=== PATIENT | female | born 1940 | race Caucasian/White ===

== ENCOUNTER 2023-11-03 08:31 | Day surgery (SDC) | payer OTHER, SELFPAY ==
[2023-11-03] VITALS (14 sets, daily range): BP systolic 111–153; BP diastolic 50–92; BMI 20.1
--- NOTE | 2023-11-03 09:22 | W.ICD.CONTRA ---
Addendum entered and electronically signed by JAZMÍN Araujo 11/03/23 12:51:
ADD: Pt is getting Bi-V PPM upgrade, not a Bi-V ICD.
Original Note:
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
-
History of KS?: No
LV Function
Left ventricular function study result?: Ejection Fraction >35% - <40%
ACEI/ARB/ARNI
Patient already on ACEI/ARB/ARNI: No
ACEI/ARB/ARNI Contraindication: Angiodema
Beta-Jessica
Patient already on Beta Jessica: Yes
[2023-11-03] MEDS: NSS 500 IV (10:07)
[2023-11-03] MEDS: MOTRIN 400 MG PO (13:36)
[2023-11-03] MEDS: TYLENOL 650 MG PO ×2 (14:16→16:09)
--- NOTE | 2023-11-03 16:12 | W.PN.UPDATE ---
Update Note
Progress Note Update
Pt seen post Bi-V PPM upgrade and pocket revision. Left ACW with aquacel dressing CDI, no ht/bleeding. Considerable pain to left shoulder, axilla and down left arm with modest relief from extra strength tylenol. Post CXR w/stable lead position, no
pneumothorax. Post EKG Bi-V paced with underlying sinus rhythm, 80s. Resume aspirin/plavix in AM. Activity limitations reviewed w/pt and daughters. Followup incision check next week at [facility] and will followup with Dr. Almazan thereafter. Home later
today if device site/tele remain stable.
--- NOTE | 2023-11-03 16:16 | ITS.CL.PACE ---
Counting Machine Operator - Pacemaker Implant
Pacemaker Implant
Procedure Report:
Date of Procedure: November 03, 2023
Patient : 1940
Procedures: Upgrade to QUILT MAKER pacemaker, addition of a 3830 conduction system pacing lead, and removal of chronic dual-chamber generator
Indication: 1) Class III CHF, LVEF 35%, 2) left bundle Branch Block, QRS 168 ms
Implants:
Pulse Generator: Medtronic; Model# W1 TR 01; Serial# [id number]
Atrial Lead: Medtronic: Model# 5076; Serial# [id number] implanted 2019
Right Ventricular Lead: Medtronic; Model# 5076; Serial# [id number] implanted 2019
Left Ventricular Lead: Medtronic; Model# 3830 implanted today
Explant:
Medtronic W1 DR serial number [id number] implanted 2019
Technique: The patient was prepped and draped in the usual fashion. The subclavian vein was patent. Local anesthetic was applied to the left prepectoral subcutaneous tissue. A 4 inch incision was made. The left axillary vein was accessed without
difficulty. A subcutaneous pocket was CREATED. Hemostasis was excellent. The coronary sinus could not be accessed so we removed the coronary sinus sheath and through a 3830 sheath found the conduction system in the middle right ventricle with
spontaneous PVCs with a W pattern on lead V1. The lead was advanced with manual torque and rotation in the clockwise direction with adequate pacing parameters and a narrow QRS of 96 ms. Threshold was acceptable and stable and as such was connected
to the new biventricular pacemaker generator. The chronic generator was removed from the field. The chronic leads were secured to the pectoralis muscle and fascia. The leads were appropriately attached to the device. The pocket was irrigated with
antibiotic solution. The device and leads were placed in the pocket and the device was secured to pectoralis muscle and facia. The incision was closed with absorbable sutures. The estimated blood loss was minimal. There were no complications. Device
based testing was performed as described below. IV contrast total: 5 cc.
System Analysis:
RA lead: P: 2.1 mV; Threshold: 0.7 V @ 0.5 ms; Impedance: 340 ohms.
RV lead: R: 20 mV; Threshold: 0.6 V @ 0.5 ms; Impedance: 475 ohms.
LV lead: R: 16 mV; Threshold: 1.2 V @ 0.5 ms; Impedance: 680 ohms..
Final Programming: DDDR 60-130 beats a minute
Conclusion: Uncomplicated upgrade to QUILT MAKER pacemaker
Recommendation: Routine device care
cc: Dr. Cesario Almazan
== END 2023-11-03 16:43 | disposition home or self-care (01) ==
LOC: CATH 08:31
PROVIDERS: ATTENDING PHYSICIAN Internal Medicine Cardiovascular Disease; FAMILY PHYSICIAN Internal Medicine; OTHER PHYSICIAN Internal Medicine Cardiovascular Disease
DX: Z45.010 Encounter for checking and testing of cardiac pacemaker pulse generator [battery] (principal); I49.5 Sick sinus syndrome; I44.7 Left bundle-branch block, unspecified; I13.0 Hypertensive heart and chronic kidney disease with heart failure and stage 1 through stage 4 chronic kidney disease, or unspecified chronic kidney disease; I50.22 Chronic systolic (congestive) heart failure; N18.31 Chronic kidney disease, stage 3a; Z79.82 Long term (current) use of aspirin; Z79.02 Long term (current) use of antithrombotics/antiplatelets
CPT/HCPCS: 33207; 33233; 33225; 33229; 71045; 93005; C1730; C1769; C1887; C1892; C1898; C2621; Q9967

== ENCOUNTER 2023-11-04 06:26 | Observation (INO) | payer OTHER, SELFPAY ==
[2023-11-04] VITALS (11 sets, daily range): BP systolic 104–174; BP diastolic 73–110; BMI 21.3
--- NOTE | 2023-11-04 03:47 | ED.GENMED ---
History of Present Illness
General
Chief Complaint: Post Operative Problem(s)
Source: patient and family
Time Seen by Provider: 11/04/23 03:31
Travel History
Have you had any contact with someone who has COVID-19?: No
Do you have any symptoms of coronavirus? Fever > 100 degrees, chills, cough, shortness of breath, sore throat, loss of taste or smell, muscle aches, or headache?: No
History of Present Illness
History of Present Illness:
83-year-old female presents to the emergency room complaining of pain in her left shoulder which radiates to her neck, down the back and down her left arm which has been present since she had pacemaker revision procedure yesterday. Patient has been
taking ibuprofen, Tylenol and using warm compresses but no improvement in the pain. Patient was offered hospitalization for pain control but declined.
Past History
Past History
ED Past Medical History: Arrthythmia, CAD (Nonobstructive), CHF and HTN
ED Past Surgical History: Cardiac (Pacemaker)
Social History
Tobacco: Non-smoker
Alcohol: Occasional
Drug: None
Personal:
Living: with family
Employment: Retired
Phy Exam
Physical Exam
Physical Exam:
General: Awake, Alert, Oriented X3. No acute distress.
Vitals: unremarkable
Head: Atraumatic
Eyes: Pupils equal, EOMI
Throat: Airway intact, no exudates
Neck: Trachea midline
Chest: Left upper chest dressing covering pacemaker surgical site.
Lungs: Clear and equal b/l
Heart: Regular rate, no murmurs
Abd: Soft, Nontender, No pulsatile mass
Neuro: Nonfocal
Skin: Warm, dry, no rash
Extremities: pulses equal b/l, no edema
Course
Orders/Labs/Results
Orders:
Orders
11/04/23 03:45
Oxycodone [Roxicodone] 5 mg PO NOW STA
11/04/23 03:46
CR Chest - 2 Views Urgent
Comment:
Reason For Exam: pain radiating to neck, back, arm s/p pacemaker sx
11/04/23 05:16
HYDROmorphone [Dilaudid] 0.5 mg IV NOW STA
11/04/23 05:43
Admit/Transfer Patient As Directed
Co-Sign Provider:
Level of Care: Observation services
Assign to:: Telemetry
Physician / Group: [email or web address]
Diagnosis: Post procedure pain at left shoulder failed OP control
Reason for Telemetry: Arrhythmia
Date to Stop Telemetry: 11/07/23
Time to Stop Telemetry: 11:00
11/04/23 05:46
Code Status As Directed
Resuscitation Status: Full Code
11/07/23 11:00
DC Protocol for Telemetry ONCE
Vital Signs
Initial and Last Documented VS:
Initial Vital Signs
Temp Pulse Resp BP Pulse Ox
98.2 F 66 20 141/76 98
11/04/23 01:18 11/04/23 01:18 11/04/23 01:18 11/04/23 01:18 11/04/23 01:18
Last Documented Vital Signs
Temp Pulse Resp BP Pulse Ox
98.4 F 80 16 158/81 95
11/04/23 06:24 11/04/23 06:24 11/04/23 06:24 11/04/23 06:24 11/04/23 06:24
MDM/Problems Addressed
Differential Diagnosis Includes:
Postoperative pain, pneumothorax, hemothorax, pericardial effusion
MDM/Problems Addressed:
Suspicion for serious complication is low as the patient has a normal heart rate, normal blood pressure. She was evaluated for this pain by cardiology after the procedure. At that time there was no suspicion for serious complication. Patient was
offered hospitalization. Pain managed
Chronic conditions affecting care: HTN and Arrhythmia
*Radiology
Radiology exam reviewed: preliminary read by ED provider (Chest x-ray reviewed by myself. No acute abnormality noted.)
*Pulse Oximetry
Patient hypoxic: no
*Journeyman Painter Interpretation
Rate: normal
Rhythm: ventricular paced
*Critical Care Note
Total Time (30-74mins, 75-104mins- exclusive of procedures): Not Applicable
ED Attending Note
-
Portions of this chart may have been created with voice recognition software.� Occasional wrong word or��sound alike� substitutions may have occurred due to the inherent limitations of voice recognition software.
Discharge Plan
Departure
Patient Disposition: Admit
Date of Disposition: 11/04/23
Time of Disposition: 05:34
Admit to: Med/Surg
Presentation/result/management discussed w/ accepting MD/DO: Hospitalist
Condition: Fair
Discharge Problem:
Post-operative pain
Interventions
Interventions:
*Risk Screen - Suicide Last Done: 11/04/23 01:18
*General Assessment Last Done: 11/04/23 01:18
*Neglect/Abuse Screening Last Done: 11/04/23 01:18
ED- Fall Risk Assessment Last Done: 11/04/23 01:18
*ED COVID-19 Vaccine History Last Done: 11/04/23 01:18
ED-Skin Assessment Last Done: 11/04/23 03:36
[2023-11-04] MEDS: ROXICODONE 5 MG PO ×2 (03:57→18:45)
[2023-11-04] MEDS: DILAUDID 0.5 MG IV ×2 (05:29→08:20)
--- NOTE | 2023-11-04 05:38 | HPS.HSE ---
Family Physician
-
Family Physician: Lisa Beth
Chief Complaint
-
post procedutre pain
History of Present Illness
83F HX melba HFrEF, Prx AF , CKD pw pain in her left shoulder which radiates to her neck, down the back and down her left arm which has been present since she had pacemaker revision procedure yesterday. Patient has been taking ibuprofen, Tylenol and
using warm compresses but no improvement in the pain.
Medical History
Past Medical History
Past Medical History: Reports Other
Additional Past Medical History:
Arrhythmia, CAD (Nonobstructive), CHF and HTN
Past Surgical History: Reports Other (PPM placement )
Social History
Tobacco: Non-smoker
Alcohol: Occasional
Drug: None
Living: With Family
Family History
Family History: Not pertinent
Allergies / Home Medications
Allergies
Allergy/AdvReac Type Severity Reaction Status Date / Time
codeine Allergy dizzy Verified 11/04/23 01:17
losartan Allergy Anaphylaxis Verified 11/04/23 01:17
sacubitril [From Entresto] Allergy Anaphylaxis Verified 11/04/23 01:17
valsartan [From Entresto] Allergy Anaphylaxis Verified 11/04/23 01:17
Home Medications
aspirin 81 mg tablet,delayed release 81 mg PO DAILY Blood clot prevention/tx 07/30/22
albuterol sulfate 90 mcg/actuation aerosol inhaler 2 puff inhalation R Q6HPRN PRN SOB 07/31/22
amiodarone 200 mg tablet (Pacerone) 200 mg PO DAILY Heart Disease/Condition 05/28/23
carvedilol 12.5 mg tablet 12.5 mg PO BID Heart Disease/Condition 05/28/23
citalopram 20 mg tablet 20 mg PO DAILY Depression 05/28/23
ferrous sulfate 325 mg (65 mg iron) tablet 325 mg PO DAILY Supplement 08/19/23
hydralazine 10 mg tablet 10 mg PO BID Blood Pressure 08/19/23
levothyroxine 100 mcg tablet 100 mcg PO DAILY Thyroid 08/19/23
omeprazole 20 mg capsule,delayed release 20 mg PO DAILY GERD 08/19/23
furosemide 40 mg tablet 40 mg PO BID HF 30 days #30 tabs 08/29/23
empagliflozin 10 mg tablet (Jardiance) 10 mg PO DAILY 10/06/23
cetirizine 10 mg tablet (Zyrtec) 10 mg PO QPM 11/03/23
clopidogrel 75 mg tablet (Plavix) 75 mg PO DAILY 11/03/23
losartan 25 mg tablet 25 mg PO DAILY 11/03/23
melatonin 3 mg tablet 6 mg PO HS 11/03/23
rosuvastatin 20 mg tablet 20 mg PO QPM 11/03/23
Allergy/Medication List:
Medications on admission are unable to be verified or confirmed at this time.
Review of Systems
-
Constitutional: Reports No Symptoms
EENT: Reports No Symptoms
Respiratory: Reports No Symptoms
Cardiac: Reports No Symptoms
Abdomen/GI: Reports No Symptoms
: Reports No Symptoms
Musculoskeletal: Reports See HPI
Skin: Reports No Symptoms
Neurological: Reports No Symptoms
Endocrine: Reports No Symptoms
Hematologic/Lymphatic: Reports No Symptoms
Psych: Reports No Symptoms
Physical Exam
Vital Signs
Vital Signs
Temp Pulse Resp BP Pulse Ox
98.2 F 80 18 153/87 94
11/04/23 01:18 11/04/23 05:02 11/04/23 05:02 11/04/23 05:02 11/04/23 05:02
Physical Exam
General: Other (see below )
Data Reviewed
-
Old Records: Reviewed
Impression/Plan
-
Reviewed VS: unremarkable
PE
Gen: NAD
HEENT: anicteric
Neck: supple
Lungs: dressing covering pacemaker surgical site.
Cor: RRR S1 S2
Abdomen: Soft, Nontender,
TOWER TECHNICIAN: AAO3 NFND
MS: no edema
Psych: appropriate
Data
Pending admission labs
11/04 CXR final report pending
11/03/23 CXR
- Interval insertion of left chest wall cardiac pacemaker.
- No pneumothorax.
- Couple bands of scarring seen within the lungs as well as mildly increased interstitial markings bilaterally, which appear be a chronic finding.
Last hospitalist admission 08/26/23 - 08/29/23
Principal Discharge diagnosis :
Acute on chronic systolic congestive heart failure
Acute renal injury on chronic kidney disease stage III
ASSESSMENT & PLAN
Data
Pending admission labs
Post procedure pain at left shoulder which radiates to her neck, down the back and down her left arm
Inadequate pain control to Tylenol/Motrin/oxycodone.
s/p pacemaker revision procedure 11/03/23
HX CKD
- IV narcotic PRN with hold for AMS
- DCA card consult
HX chronic HFrEF
- maintain on PO Lasix
HX Paroxysmal AF
s/p pacemaker revision procedure 11/03/23
- cont amiodarone.
- cont. Aspirin only, not on anticoagulation due to history of bleed/fall
CKD3a
- f/u BMP
Chr condition
Alcohol use disorder
history of cardiogenic CVA
COPD without exacerbation
Hypothyroidism
Hyperlipidemia
Essential hypertension
History of aortic stenosis s/p TAVR
Chronic normocytic anemia
Chronic thrombocytopenia
DVT prophylaxis - SQH
Full code
Obs TLM
--- NOTE | 2023-11-04 08:45 | CM ---
MEt with patient who is admitted under observation status. Patient signed OBs letter and copy to her. SHe reports she had pacemaker put in as outpatient yesterday. [facility] Her daughter has called [facility] to notify of
admit to . She has been independent and lives alone. She resides in 2 level home with one step in. THere is powder room on medical data entry clerk. UP full flight to her bedroom and full bathroom. She has 3 daughters, [address] Lisa Beth
Pharmacy: [facility] pharmacy in [place]
PLAN: Home with [facility].
--- NOTE | 2023-11-04 09:08 | W.PN.HOSP.TC ---
Today's Communication/Plan
-
Plan for discharge tomorrow if pain is controlled on meds
Assessment / Plan
Assessment / Plan
Post procedure pain at left shoulder which radiates to her neck, down the back and down her left arm
S/p pacemaker revision procedure 11/03/23
-Give Tylenol 1 g 4 times daily, oxycodone 5 mg for moderate pain, oxycodone 10 mg for severe pain
-Use IV Dilaudid only if oxycodone is not helping
-Plan for discharge tomorrow if pain is controlled
Stage IIIa chronic kidney disease
� Monitor creatinine
Chronic systolic CHF
� Continue home Lasix
Paroxysmal atrial fibrillation
-�s/p pacemaker revision procedure 11/03/23
- cont amiodarone, aspirin, not on anticoagulation due to history of bleed/fall
�
Alcohol use disorder
History of cardiogenic CVA
COPD without exacerbation
Hypothyroidism
Hyperlipidemia
Essential hypertension
History of aortic stenosis s/p TAVR
Chronic normocytic anemia
Chronic thrombocytopenia
DVT prophylaxis�subcu heparin
Full code
Physical Exam
General: No acute distress
HEENT: Normocephalic, Atraumatic, EOMI, MMM
Respiratory: Clear to Auscultation bilaterally
Cardiac: Normal S1/S2, Regular Rate and Rhythm
Chest wall: Arm in sling
GI: Soft, Nontender, Nondistended, Normal Bowel Sounds
Extremities: No Clubbing, Cyanosis, or Edema
Anticipated Discharge: Within 24 hours
Subjective/Interval History
-
Date of Service: November 04, 2023
Patient reports her pain is much improved.
Objective Data
-
Vital Signs:
Vital Signs
Temp Pulse Resp BP Pulse Ox
98.4 F 68 16 158/81 95
11/04/23 06:24 11/04/23 06:45 11/04/23 06:45 11/04/23 06:24 11/04/23 06:45
--- NOTE | 2023-11-04 09:13 | CON.CAR ---
Consultation
Consultation Request
Date/Time Consultation Requested: November 04, 2023
Date/Time Consultation Performed: November 04, 2023
Requesting Provider: Hospitalist
Performing Provider: Latrice
Reason for Consultation: Pain management
Medical History
-
Chief Complaint: Pain management
History of Present Illness:
83-year-old with extensive medical history as listed below who is status post upgrade to CLINICAL REHABILITATION SPECIALIST pacemaker yesterday with a left bundle branch area lead and was doing well post procedure yesterday with a chest x-ray demonstrating no pneumothorax and a
stable lead positions who had adequate pain control at time of discharge although overnight was having a difficulty getting settled and was noting left neck left shoulder and left arm pain. Of note her prior generator from the pacemaker placed by
Dr. Machado at [facility] had migrated into her shoulder causing significant discomfort prior to procedure and we moved the generator more medially and inferiorly and is a stable location. There is no hematoma evident. Repeat chest x-ray
demonstrates stable lead positions. There is no drainage from the wound. After receiving analgesia in her ER she was comfortable eating and telling me jokes. I also spoke with her daughter regarding pain management.
Past Medical History
Past Medical History: Arrhythmias, CHF and CVA
Past Surgical History: None
Social History
Tobacco: Non-Smoker
Alcohol: None
Drug: None
Personal: Single
Living: Alone
Employment: Not Employed
Family History
Family History: Reviewed & Not Pertinent
Allergies / Home Medications
Allergy/AdvReac Type Severity Reaction Status Date / Time
codeine Allergy dizzy Verified 11/04/23 01:17
losartan Allergy Anaphylaxis Verified 11/04/23 01:17
sacubitril [From Entresto] Allergy Anaphylaxis Verified 11/04/23 01:17
valsartan [From Entresto] Allergy Anaphylaxis Verified 11/04/23 01:17
Medication Instructions Recorded Confirmed Type
aspirin 81 mg tablet,delayed 81 mg PO DAILY Blood clot 07/30/22 11/04/23 History
release prevention/tx
albuterol sulfate 90 mcg/actuation 2 puff inhalation R Q6HPRN PRN SOB 07/31/22 11/04/23 History
aerosol inhaler
amiodarone 200 mg tablet (Pacerone) 200 mg PO DAILY Heart 05/28/23 11/04/23 History
Disease/Condition
carvedilol 12.5 mg tablet 12.5 mg PO BID Heart 05/28/23 11/04/23 History
Disease/Condition
citalopram 20 mg tablet 20 mg PO DAILY Depression 05/28/23 11/04/23 History
ferrous sulfate 325 mg (65 mg 325 mg PO DAILY Supplement 08/19/23 11/04/23 History
iron) tablet
hydralazine 10 mg tablet 10 mg PO BID Blood Pressure 08/19/23 11/04/23 History
levothyroxine 100 mcg tablet 100 mcg PO DAILY Thyroid 08/19/23 11/04/23 History
omeprazole 20 mg capsule,delayed 20 mg PO DAILY GERD 08/19/23 11/04/23 History
release
furosemide 40 mg tablet 40 mg PO BID HF 30 days #30 tabs 08/29/23 11/04/23 Rx
empagliflozin 10 mg tablet 10 mg PO DAILY 10/06/23 11/04/23 History
(Jardiance)
cetirizine 10 mg tablet (Zyrtec) 10 mg PO QPM 11/03/23 11/04/23 History
clopidogrel 75 mg tablet (Plavix) 75 mg PO DAILY 11/03/23 11/04/23 History
losartan 25 mg tablet 25 mg PO DAILY 11/03/23 11/04/23 History
melatonin 3 mg tablet 6 mg PO HS 11/03/23 11/04/23 History
rosuvastatin 20 mg tablet 20 mg PO QPM 11/03/23 11/04/23 History
Review of Systems
-
All other systems: Negative unless noted
Musculoskeletal: Joint Pain, Muscle Pain and Muscle Stiffness
Physical Exam
Vital Signs
Temp Pulse Resp BP Pulse Ox
98.4 F 68 16 158/81 95
11/04/23 06:24 11/04/23 06:45 11/04/23 06:45 11/04/23 06:24 11/04/23 06:45
Physical Exam
General: Well Developed and Well Nourished
HEENT: Normocephalic
Respiratory: Clear
Cardiac: S1/S2 and Regular Rhythm
Breast: Deferred by me
GI: Soft, Non Tender and Non Distended
Rectal: Deferred by Provider
Genito-urinary: Other
Musculoskeletal: No Clubbing and No Cyanosis
Skin: Warm and Dry
Neuro: Awake, Alert and Oriented
Hematologic/Lymphatic: No Lymphadenopathy
Psych: Calm
Impression / Plan
-
Outpatient computer numerical control machinist: Dr. Cesario Almazan at [facility]
Impression:
Status post upgrade to CLINICAL REHABILITATION SPECIALIST pacemaker on November 03 with me utilizing a left bundle branch area lead
Nonischemic cardiomyopathy, HFrEF 35%-40% by echo 08/21/2023.
Left bundle branch block.
Sick sinus syndrome status post dual-chamber pacemaker-placed by Dr. Machado at [facility]
Aortic stenosis status post TAVR.
Paroxysmal atrial fibrillation.
Nonobstructive coronary artery disease by catheterization 08/2022.
CVA, multiple, with recent showing new embolic events, residual
� � deficits- left hemiparesis-mild, balance and gait disturbance.
Carotid artery stenosis status post left stent.
Cerebral aneurysm.
AAA.
Iron deficiency anemia requiring transfusion.
Colonic polyps.
Hiatal hernia with gastroesophageal reflux disease.
Pulmonary nodule.
Degenerative disk disease with spinal stenosis, radiculopathy.
Obstructive sleep apnea suspected.
Hypothyroidism.
Osteopenia.
COPD.
Asthma.
Peripheral arterial disease.
Hypertension.
Hyperlipidemia.
Depression, anxiety.
Insomnia
Recommendations:
Appreciate excellent IM care. She was admitted for pain control after device upgrade procedure yesterday. We did need to move her generator position from the shoulder capsule which is not a traditional position to a more standard position in the
deltopectoral groove. As such she has likely more pain in the shoulder neck and arm region from generator repositioning.
-She would be okay with Tylenol 650 mg every 6 hours and if she has breakthrough I have no objection to Percocet or what other narcotic is decided upon with internal medicine.
-She has an extensive past medical history and I suspect given the inability to control pain at home overnight Monday that we should keep her for approximately 48 hours for pain management
-Review of her chest x-ray, telemetry and device site reveals normal and stable device function and lead positions. She has appropriate narrow QRS on telemetry from her left bundle branch area pacing
-Will continue all of her cardiac medications
-Her outpatient computer numerical control machinist wants her evaluated for a watchman implantation at some point over the next 3 to 6 months
Data Reviewed
-
EKG: Tracing Personally Visualized and interpreted
Radiology: Image Personally Visualized and interpreted
Medical Tests (Nuc Med, Echo etc): Report Reviewed by me
Labs: Labs Reviewed by me
Old Records: Reviewed
--- NOTE | 2023-11-04 10:00 | PTCARENOTE ---
Pt arrived to rm 405-1 at this time from the ED. Pt AAox3, stating that left shoulder pain is acceptable to her, educated pt on pain meds. A-paced on telemetry. Also, educated pt on left upper extremity restriction with arm sling post pacemaker. See
shift assessment for further detail. Oriented pt to , call trevizo, plan of care, pressure ulcer prevention, call trevizo- pt verbalized understanding, will monitor.
[2023-11-04] MEDS: COREG 12.5 MG PO ×2 (11:11→22:06)
[2023-11-04] MEDS: COLACE 100 MG PO ×2 (11:11→22:07)
[2023-11-04] MEDS: ASPIR LOW (ENTERIC COATED) 81 MG PO (11:11)
[2023-11-04] MEDS: HEPARIN 5000 UNITS SC ×2 (11:13→22:08)
[2023-11-04] MEDS: FEOSOL 325 MG PO (11:13)
[2023-11-04] MEDS: JARDIANCE 10 MG PO (11:13)
[2023-11-04] MEDS: LASIX 40 MG PO ×2 (11:13→22:07)
[2023-11-04] MEDS: PLAVIX 75 MG PO (11:14)
[2023-11-04] MEDS: APRESOLINE 10 MG PO ×2 (11:14→22:08)
[2023-11-04] MEDS: PROTONIX 40 MG PO (11:14)
[2023-11-04] MEDS: SYNTHROID 100 MCG PO (11:14)
[2023-11-04 11:37] LABS: Glucose - Point of Care 121 mg/dl (70-99)
[2023-11-04] MEDS: CELEXA 20 MG PO (12:55)
[2023-11-04] MEDS: COZAAR 25 MG PO (12:55)
[2023-11-04] MEDS: PACERONE 200 MG PO (12:57)
[2023-11-04] MEDS: TYLENOL 1000 MG PO ×3 (12:58→22:07)
[2023-11-04 16:44] LABS: Glucose - Point of Care 109 mg/dl (70-99)
--- NOTE | 2023-11-04 17:30 | PTCARENOTE ---
Removed sling that was on left upper extremity 24 hrs post pacemaker 11/03/23. Dr. Pollard indicated earlier today to remove sling this evening. Educated pt to not push up with left hand/arm.
[2023-11-04] MEDS: MIRALAX 17 GRAMS PO (18:09)
[2023-11-04] MEDS: ZYRTEC 10 MG PO (18:09)
[2023-11-04] MEDS: CRESTOR 10 MG PO (18:44)
[2023-11-04 21:35] LABS: Glucose - Point of Care 153 mg/dl (70-99)
[2023-11-04] MEDS: MELATONIN PO (22:00)
[2023-11-05] VITALS (9 sets, daily range): BP systolic 79–157; BP diastolic 51–83; PULSE 78; O2SAT 96; BMI 21.2
[2023-11-05 01:08] LABS: Urine Albumin Negative (Neg - Trace); Urine Bilirubin Negative (Negative); Urine Character Clear (Clear); Urine Color Yellow; Urine Glucose 2+ (Negative); Urine Ketone Negative (Negative); Urine Leukocyte Trace (Negative); Urine Nitrite Negative (Negative); Urine Occult Blood Negative (Negative); Urine Specific Gravity 1.015 (<1.030); Urine Urobilinogen Negative (Neg - 1+)
[2023-11-05 01:34] LABS: Urine Squamous Cell >30 /LPF (Few)
[2023-11-05 01:36] LABS: Urine Bacteria Many (Negative); Urine White Cell 30-40 /HPF (0-5)
[2023-11-05] MEDS: SYNTHROID 100 MCG PO (05:13)
[2023-11-05] MEDS: ROXICODONE 5 MG PO ×2 (05:16→16:29)
[2023-11-05 07:29] LABS: Hematocrit 34.3 % (37.0-47.0); Hemoglobin 11.4 g/dL (12.0-16.0); Mean Corp Hgb Conc. 33.2 g/dL (33.0-37.0); Mean Corpuscular Hgb 30.5 pg (27.0-31.0); Mean Corpuscular Volume 91.7 fL (81.0-99.0); Mean Platelet Volume 9.5 fL (7.4-10.4); Platelet Count 136 10^3/uL (130-400); Red Blood Cell Count 3.74 10^6/uL (4.20-5.40); Red Cell Dist. Width 12.9 % (11.5-14.5); White Blood Cell Count 4.5 10^3/uL (4.8-10.8)
[2023-11-05 08:07] LABS: Glucose - Point of Care 91 mg/dl (70-99)
[2023-11-05 08:11] LABS: Blood Urea Nitrogen 47 mg/dl (7-17); Calcium 9.1 mg/dl (8.4-10.2); Carbon Dioxide 28 mmol/L (22-30); Chloride 101 mmol/L (98-107); Estimated Creatinine Clearance 24 ml/min; Glucose 92 mg/dl (70-99); Potassium 3.7 mmol/L (3.5-5.1); Sodium 136 mmol/L (135-145); eGFR 41.06
[2023-11-05 08:33] LABS: Glycohemoglobin (HgbA1c) 5.4 % (4.0-5.6)
--- NOTE | 2023-11-05 08:37 | W.PN.HOSP.TC ---
Addendum entered and electronically signed by Andre Brooks MD 11/05/23 16:21:
Patient complains of dysuria, UA is dirty/not a clean catch, start empiric Rocephin until cultures return.
Original Note:
Today's Communication/Plan
-
see bold
Assessment / Plan
Assessment / Plan
Post procedure pain at left shoulder which radiates to her neck, down the back and down her left arm
S/p pacemaker revision procedure 11/03/23
-Give Tylenol 1 g 4 times daily, oxycodone 5 mg for moderate pain, oxycodone 10 mg for severe pain
-Use IV Dilaudid only if oxycodone is not helping
-Plan for discharge tomorrow if pain is controlled
-PT rec HH
Stage IIIa chronic kidney disease
� Monitor creatinine
Chronic systolic CHF
� Continue home Lasix
Paroxysmal atrial fibrillation
-�s/p pacemaker revision procedure 11/03/23
- cont amiodarone, aspirin, not on anticoagulation due to history of bleed/fall
�
Alcohol use disorder
History of cardiogenic CVA
COPD without exacerbation
Hypothyroidism
Hyperlipidemia
Essential hypertension
History of aortic stenosis s/p TAVR
Chronic normocytic anemia
Chronic thrombocytopenia
DVT prophylaxis�subcu heparin
Full code
Physical Exam
General: No acute distress
HEENT: Normocephalic, Atraumatic, EOMI, MMM
Respiratory: Clear to Auscultation bilaterally
Cardiac: Normal S1/S2, Regular Rate and Rhythm
Chest wall: Pacemaker incision with dressing in pace
GI: Soft, Nontender, Nondistended, Normal Bowel Sounds
Extremities: No Clubbing, Cyanosis, or Edema
Anticipated Discharge: Within 24 hours
Subjective/Interval History
-
Date of Service: November 05, 2023
Patient continues to complain of severe left shoulder pain.
Objective Data
-
Labs:
Laboratory Results
11/05/23
06:40
WBC 4.5 L
Hgb 11.4 L
Hct 34.3 L
Plt Count 136
Sodium 136
Potassium 3.7
Chloride 101
Carbon Dioxide 28
BUN 47 H
Creatinine 1.3 H
Glucose 92
Calcium 9.1
Vital Signs:
Vital Signs
Temp Pulse Resp BP Pulse Ox
97.6 F 71 18 147/83 99
11/05/23 08:27 11/05/23 08:27 11/05/23 08:27 11/05/23 03:28 11/05/23 08:27
I&O
11/04/23 11/05/23 11/06/23
06:59 06:59 06:59
Intake Total 1200 / 1200
Output Total 705 / 705
Balance 495 / 495
--- NOTE | 2023-11-05 08:40 | W.PN.CARDCBS ---
Today's Communication / Plan
-
Pain control
Out of bed ambulate
Home Monday
Impression / Plan
-
Outpatient feature writer: Dr. Cesario Almazan at [facility]
Impression:
Status post upgrade to DANCE ARTIST pacemaker on November 03 with me utilizing a left bundle branch area lead
Nonischemic cardiomyopathy, HFrEF 35%-40% by echo 08/21/2023.
Left bundle branch block.
Sick sinus syndrome status post dual-chamber pacemaker-placed by Dr. Machado at [facility]
Aortic stenosis status post TAVR.
Paroxysmal atrial fibrillation.
Nonobstructive coronary artery disease by catheterization 08/2022.
CVA, multiple, with recent showing new embolic events, residual
� � deficits- left hemiparesis-mild, balance and gait disturbance.
Carotid artery stenosis status post left stent.
Cerebral aneurysm.
AAA.
Iron deficiency anemia requiring transfusion.
Colonic polyps.
Hiatal hernia with gastroesophageal reflux disease.
Pulmonary nodule.
Degenerative disk disease with spinal stenosis, radiculopathy.
Obstructive sleep apnea suspected.
Hypothyroidism.
Osteopenia.
COPD.
Asthma.
Peripheral arterial disease.
Hypertension.
Hyperlipidemia.
Depression, anxiety.
Insomnia
Recommendations:
Appreciate excellent IM care. She was admitted for pain control after device upgrade procedure Monday. We did need to move her generator position from the shoulder capsule which is not a traditional position to a more standard position in the
deltopectoral groove. As such she has likely more pain in the shoulder neck and arm region from generator repositioning. She has no evidence of hematoma or significant drainage.
-She would be okay with Tylenol 650 mg every 6 hours and if she has breakthrough I have no objection to Percocet or what other narcotic is decided upon with internal medicine.
-She has an extensive past medical history and I suspect given the inability to control pain at home overnight [place] that we should keep her for approximately 48 hours for pain management
-Review of her chest x-ray, telemetry and device site reveals normal and stable device function and lead positions. She has appropriate narrow QRS on telemetry from her left bundle branch area pacing
-Will continue all of her cardiac medications
-Her outpatient feature writer wants her evaluated for a watchman implantation at some point over the next 3 to 6 months
-Out of bed and ambulate today and I suspect discharge Monday
Progress Note - Registered Nurse Obstetrics
Subjective
Date of Service: November 05, 2023
Feels better today
Objective
Labs:
11/05/23 06:40
11/05/23 06:40
Labs
Hgb 11.4 g/dL (12.0-16.0) L 11/05/23 06:40
Hct 34.3 % (37.0-47.0) L 11/05/23 06:40
Plt Count 136 10^3/uL (130-400) 11/05/23 06:40
Sodium 136 mmol/L (135-145) 11/05/23 06:40
Potassium 3.7 mmol/L (3.5-5.1) 11/05/23 06:40
BUN 47 mg/dl (7-17) H 11/05/23 06:40
Creatinine 1.3 mg/dL (0.6-1.0) H 11/05/23 06:40
Glucose 92 mg/dl (70-99) 11/05/23 06:40
Vital Signs and I&O:
Vital Signs
Temp Pulse Resp BP Pulse Ox
97.6 F 71 18 147/83 99
11/05/23 08:27 11/05/23 08:27 11/05/23 08:27 11/05/23 03:28 11/05/23 08:27
Vital Signs
Temp Pulse Resp BP Pulse Ox
97.6 F 71 18 147/83 99
11/05/23 08:27 11/05/23 08:27 11/05/23 08:27 11/05/23 03:28 11/05/23 08:27
Intake & Output
11/03/23 11/04/23 11/05/23 11/06/23
06:59 06:59 06:59 06:59
Intake Total 1200 / 1200
Output Total 705 / 705
Balance 495 / 495
Physical Exam
Physical Exam
HEENT normocephalic atraumatic
Site clean dry and intact without hematoma or drainage
No significant ecchymosis at the site
Appropriate ventricular pacing on telemetry
Cor regular no murmur
Lungs clear to station bilaterally
Abdomen soft nontender positive bowel sounds no extremity edema
Alert and interacts 3
[2023-11-05] MEDS: APRESOLINE 10 MG PO ×2 (09:46→21:01)
[2023-11-05] MEDS: HEPARIN 5000 UNITS SC ×2 (09:47→21:03)
[2023-11-05] MEDS: COZAAR 25 MG PO (09:47)
[2023-11-05] MEDS: COLACE 100 MG PO (09:47)
[2023-11-05] MEDS: CELEXA 20 MG PO (09:47)
[2023-11-05] MEDS: ASPIR LOW (ENTERIC COATED) 81 MG PO (09:47)
[2023-11-05] MEDS: FEOSOL 325 MG PO (09:47)
[2023-11-05] MEDS: COREG 12.5 MG PO ×2 (09:47→21:01)
[2023-11-05] MEDS: PACERONE 200 MG PO (09:48)
[2023-11-05] MEDS: PROTONIX 40 MG PO (09:48)
[2023-11-05] MEDS: TYLENOL 1000 MG PO ×4 (09:48→22:18)
[2023-11-05] MEDS: MIRALAX 17 GRAMS PO (09:48)
[2023-11-05] MEDS: PLAVIX 75 MG PO (09:48)
[2023-11-05] MEDS: JARDIANCE 10 MG PO (09:48)
[2023-11-05] MEDS: LASIX 40 MG PO (09:49)
[2023-11-05] MEDS: ROXICODONE 10 MG PO (10:46)
[2023-11-05 11:57] LABS: Glucose - Point of Care 77 mg/dl (70-99)
[2023-11-05] MEDS: STERILE WATER FOR INJECTION 10 ML IV (12:50)
[2023-11-05] MEDS: ROCEPHIN 1000 MG IV (12:50)
--- NOTE | 2023-11-05 13:00 | PTCARENOTE ---
Made Dr. Tori Brooks aware of pt's drop in BP (85/57) prior to pt working with PT. Pt asymptomatic. BP 112/71 after working with PT. Pt still complaining of pain of left shoulder although pt sleeping prior to asking pt about pain. Dr. Brooks adding
parameters to BP meds, will continue to monitor BP and pain management.
[2023-11-05] MEDS: LIDOCAINE 4% PATCH 1 PATCH TOPICAL (13:48)
[2023-11-05] MEDS: LASIX PO (17:08)
[2023-11-05 17:22] LABS: Glucose - Point of Care 135 mg/dl (70-99)
[2023-11-05] MEDS: CRESTOR 10 MG PO (18:23)
[2023-11-05] MEDS: ZYRTEC 10 MG PO (18:23)
[2023-11-05] MEDS: COLACE PO (21:02)
[2023-11-05] MEDS: MELATONIN 6 MG PO (21:02)
[2023-11-05 21:21] LABS: Glucose - Point of Care 117 mg/dl (70-99)
[2023-11-06] MEDS: ROXICODONE 5 MG PO ×2 (02:26→15:39)
[2023-11-06 02:45] VITALS: BP 143/80
[2023-11-06 04:03] VITALS: BMI 20.8
[2023-11-06] MEDS: SYNTHROID 100 MCG PO (04:32)
[2023-11-06 07:47] LABS: Glucose - Point of Care 86 mg/dl (70-99)
[2023-11-06] MEDS: DILAUDID 0.5 MG IV (08:49)
[2023-11-06] MEDS: HEPARIN 5000 UNITS SC ×2 (08:52→19:50)
[2023-11-06] MEDS: COREG 12.5 MG PO ×2 (08:52→19:53)
[2023-11-06] MEDS: COLACE 100 MG PO ×2 (08:52→19:53)
[2023-11-06] MEDS: PACERONE 200 MG PO (08:53)
[2023-11-06] MEDS: TYLENOL 1000 MG PO ×4 (08:53→21:34)
[2023-11-06] MEDS: CELEXA 20 MG PO (08:53)
[2023-11-06] MEDS: COZAAR 25 MG PO (08:53)
[2023-11-06] MEDS: APRESOLINE 10 MG PO ×2 (08:53→19:52)
[2023-11-06] MEDS: JARDIANCE 10 MG PO (08:53)
[2023-11-06] MEDS: ASPIR LOW (ENTERIC COATED) 81 MG PO (08:53)
[2023-11-06] MEDS: PLAVIX 75 MG PO (08:53)
[2023-11-06] MEDS: LASIX 40 MG PO ×2 (08:53→15:41)
[2023-11-06] MEDS: PROTONIX 40 MG PO (08:53)
[2023-11-06] MEDS: FEOSOL 325 MG PO (08:53)
--- NOTE | 2023-11-06 08:53 | W.PN.HOSP.TC ---
Today's Communication/Plan
-
I want to see how she does with physical therapy today
Control pain with oxycodone only
Will need VNA and physical therapy at home
Assessment / Plan
Assessment / Plan
Post procedure pain at left shoulder which radiates to her neck, down the back and down her left arm
S/p pacemaker revision procedure 11/03/23
-Give Tylenol 1 g 4 times daily, oxycodone 5 mg for moderate pain, oxycodone 10 mg for severe pain
-Use IV Dilaudid only if oxycodone is not helping
-Plan for discharge tomorrow if pain is controlled
-PT rec HH
Stage IIIa chronic kidney disease
� Monitor creatinine
Chronic systolic CHF
� Continue home Lasix
Paroxysmal atrial fibrillation
-�s/p pacemaker revision procedure 11/03/23
- cont amiodarone, aspirin, not on anticoagulation due to history of bleed/fall
�
Alcohol use disorder
History of cardiogenic CVA
COPD without exacerbation
Hypothyroidism
Hyperlipidemia
Essential hypertension
History of aortic stenosis s/p TAVR
Chronic normocytic anemia
Chronic thrombocytopenia
DVT prophylaxis�subcu heparin
Full code
Physical Exam
General: No acute distress
HEENT: Normocephalic, Atraumatic, EOMI, MMM
Respiratory: Clear to Auscultation bilaterally
Cardiac: Normal S1/S2, Regular Rate and Rhythm
Chest wall: Pacemaker incision with dressing in pace
GI: Soft, Nontender, Nondistended, Normal Bowel Sounds
Extremities: No Clubbing, Cyanosis, or Edema
Anticipated Discharge: Today
Subjective/Interval History
-
Date of Service: November 06, 2023
Continues to have left shoulder pain does not want to try and elevate the shoulder or externally or internally rotated does have wrist and hand movement without difficulty. States she is not ready to go home just yet.
Objective Data
-
Vital Signs:
Vital Signs
Temp Pulse Resp BP Pulse Ox
98.4 F 82 20 143/80 94
11/06/23 07:35 11/06/23 07:35 11/06/23 07:35 11/06/23 02:45 11/06/23 07:35
I&O
11/05/23 11/06/23 11/07/23
06:59 06:59 06:59
Intake Total 1200 / 1200 780 / 780 480 / 480
Output Total 705 / 705 1325 / 1325
Balance 495 / 495 -545 / -545 480 / 480
Review of Systems
-
History Source: Patient
All other systems: Reviewed and negative
Respiratory: Reports No Symptoms
Cardiac: Reports Chest Pain (Left shoulder pain at pacer pocket)
Musculoskeletal: Reports Muscle Pain and Myalgias
Physical Exam
-
General: Well Developed
HEENT: Normocephalic
Respiratory: Clear to Auscultation
Cardiac: Regular Rhythm
GI: Soft
Rectal: Brown
Musculoskeletal: Edema, Left Upper Extrem (Lack of range of motion cannot externally or internally rotate left arm due to pain referred to the left subclavian pacer pocket)
Neuro: Awake
Psych: Calm
Data Reviewed
-
Total Time Spent with Patient (in minutes): 45
Labs: Labs Reviewed by me
[2023-11-06] MEDS: MIRALAX 17 GRAMS PO (08:54)
[2023-11-06] MEDS: LIDOCAINE 4% PATCH 1 PATCH TOPICAL (08:54)
[2023-11-06 11:00] VITALS: BP 95/52
--- NOTE | 2023-11-06 11:40 | W.PN.CARDCBS ---
Addendum entered and electronically signed by Enoc Freed MD 11/06/23 14:57:
I saw and examined the patient.
The MECHANICAL PRODUCT ENGINEER or PA's note was reviewed and I agree with the note.
Comment: General: Well developed, well nourished in NAD.
Neck: Supple, no JVD, HJR, carotids +2 B/L, no bruits bilaterally.
Heart: Non displaced PMI, RRR, no murmurs, No S3, S4, no rubs.
Lungs: Scattered rhonchi
Extremities: No clubbing, cyanosis or edema bilaterally.
Neuro: Grossly nonfocal, awake, alert and oriented x3.
Pain control has improved. Hopefully discharge in the next 24 hours. PT to see patient
Original Note:
Today's Communication / Plan
-
Continue pain control
PT assessment
Hopeful d/c within next 24 hours
Impression / Plan
-
Outpatient manufacturing process engineer: Dr. Cesario Almazan at [facility]
Black Off Worker: Dr. Pollard
Impression:
Status post upgrade to ASSEMBLER SHOW MOTOR pacemaker on November [address] Pollard utilizing a left bundle branch area lead
Nonischemic cardiomyopathy, HFrEF 35%-40% by echo 08/21/2023.
Left bundle branch block.
Sick sinus syndrome status post dual-chamber pacemaker-placed by Dr. Machado at [facility]
Aortic stenosis status post TAVR.
Paroxysmal atrial fibrillation.
Nonobstructive coronary artery disease by catheterization 08/2022.
CVA, multiple, with recent showing new embolic events, residual
� � deficits- left hemiparesis-mild, balance and gait disturbance.
Carotid artery stenosis status post left stent.
Cerebral aneurysm.
AAA.
Iron deficiency anemia requiring transfusion.
Colonic polyps.
Hiatal hernia with gastroesophageal reflux disease.
Pulmonary nodule.
Degenerative disk disease with spinal stenosis, radiculopathy.
Obstructive sleep apnea suspected.
Hypothyroidism.
Osteopenia.
COPD.
Asthma.
Peripheral arterial disease.
Hypertension.
Hyperlipidemia.
Depression, anxiety.
Insomnia
Recommendations:
-Presented back 11/04/2023 in evening with severe pain after having ASSEMBLER SHOW MOTOR PPM upgrade on 11/04/2023 and admitted for pain control.
-Per EP needed to move her generator position from the shoulder capsule which is not a traditional position to a more standard position in the deltopectoral groove. As such she has likely more pain in the shoulder, neck and arm region from
generator repositioning. She has no evidence of hematoma or significant drainage.
-Still notes pain in left shoulder and neck. Continue Tylenol 650-1000 mg every 6 hours for mild pain, oxycodone 5 mg for moderate pain, oxycodone 10 mg for severe pain.
-Review of her chest x-ray, telemetry and device site reveals normal and stable device function and lead positions. She has appropriate narrow QRS on telemetry from her left bundle branch area pacing
-Will continue all of her cardiac medications
-Her outpatient manufacturing process engineer wants her evaluated for a watchman implantation at some point over the next 3 to 6 months.
-Patient to undergo assessment with PT today. Likely would benefit from VN and PT at home.
-Out of bed and ambulate today. Hopeful d/c to home within next 24 hours if pain controlled.
Progress Note - Slip Dumper
Subjective
Date of Service: November 06, 2023
Patient seen and examined. Patient reports overall she is feeling well however she continues to have pain in the left shoulder radiating into her upper back and neck area. Denies chest pain, shortness of breath, dizziness or lightheadedness.
Objective
Labs:
11/05/23 06:40
11/05/23 06:40
Labs
Hgb 11.4 g/dL (12.0-16.0) L 11/05/23 06:40
Hct 34.3 % (37.0-47.0) L 11/05/23 06:40
Plt Count 136 10^3/uL (130-400) 11/05/23 06:40
Sodium 136 mmol/L (135-145) 11/05/23 06:40
Potassium 3.7 mmol/L (3.5-5.1) 11/05/23 06:40
BUN 47 mg/dl (7-17) H 11/05/23 06:40
Creatinine 1.3 mg/dL (0.6-1.0) H 11/05/23 06:40
Glucose 92 mg/dl (70-99) 11/05/23 06:40
Vital Signs and I&O:
Vital Signs
Temp Pulse Resp BP Pulse Ox
98.4 F 74 20 183/91 94
11/06/23 07:35 11/06/23 08:52 11/06/23 07:35 11/06/23 08:52 11/06/23 10:47
Vital Signs
Temp Pulse Resp BP Pulse Ox
98.4 F 74 20 183/91 94
11/06/23 07:35 11/06/23 08:52 11/06/23 07:35 11/06/23 08:52 11/06/23 10:47
Intake & Output
11/04/23 11/05/23 11/06/23 11/07/23
06:59 06:59 06:59 06:59
Intake Total 1200 / 1200 780 / 780 480 / 480
Output Total 705 / 705 1325 / 1325
Balance 495 / 495 -545 / -545 480 / 480
Physical Exam
Physical Exam
GEN: No distress, awake, Ox3, lying in bed
HEENT: supple, anicteric, mmm
LUNGS: CTA bilaterally, no wheezes/rales
CV: Reg, S1/S2, no murmur, rubs
ABD: soft, BS+, NT/ND
EXT: No edema, clubbing or cyanosis
NEURO: Gross non-focal
SKIN: No rash,warm, dry, pink
[2023-11-06] MEDS: ROCEPHIN 1000 MG IV (12:05)
[2023-11-06] MEDS: ROXICODONE 10 MG PO ×2 (12:05→19:43)
[2023-11-06] MEDS: STERILE WATER FOR INJECTION 10 ML IV (12:06)
[2023-11-06 13:38] LABS: Glucose - Point of Care 136 mg/dl (70-99)
[2023-11-06 15:15] VITALS: BP 102/64
[2023-11-06 16:54] VITALS: BP 145/73; PULSE 66; O2SAT 96
[2023-11-06 17:16] LABS: Glucose - Point of Care 95 mg/dl (70-99)
[2023-11-06] MEDS: ZYRTEC 10 MG PO (17:18)
[2023-11-06] MEDS: CRESTOR 10 MG PO (17:18)
[2023-11-06 19:00] VITALS: BP 172/84
[2023-11-06] MEDS: MELATONIN 6 MG PO (19:52)
[2023-11-06 21:27] LABS: Glucose - Point of Care 132 mg/dl (70-99)
[2023-11-06 23:19] VITALS: BP 149/74
[2023-11-07] MEDS: ROXICODONE 10 MG PO ×2 (00:54→05:40)
[2023-11-07 03:55] VITALS: BP 146/76
[2023-11-07] MEDS: SYNTHROID 100 MCG PO (05:37)
[2023-11-07 07:00] VITALS: BP 106/86
[2023-11-07 08:58] LABS: Glucose - Point of Care 126 mg/dl (70-99)
--- NOTE | 2023-11-07 09:22 | W.DS.TRANS ---
DC Summary - Director Presales
-
Discharge Instructions:
Sleep Apnea Risk High
Discharge Diagnosis/Procedures Shoulder pain from recent pacer insertion
Ambulatory dysfunction
Status post upgrade to MOLD PRESS OPERATOR pacer November 03
History of sick sinus syndrome status post dual-
chamber pacer
Diet As tolerated
Activity As tolerated,With Walker
Driving Restrictions No driving
Other Services VN,PT
Instructions:
Stand-Alone Forms:
Changes to Home Medications: Yes
Discharge Medications:
DC Medications w/original date entered in Chatterous
aspirin 81 mg tablet,delayed release 81 mg PO DAILY Blood clot prevention/tx 07/30/22
albuterol sulfate 90 mcg/actuation aerosol inhaler 2 puff inhalation R Q6HPRN PRN SOB 07/31/22
amiodarone 200 mg tablet (Pacerone) 200 mg PO DAILY Heart Disease/Condition 05/28/23
carvedilol 12.5 mg tablet 12.5 mg PO BID Heart Disease/Condition 05/28/23
citalopram 20 mg tablet 20 mg PO DAILY Depression 05/28/23
ferrous sulfate 325 mg (65 mg iron) tablet 325 mg PO DAILY Supplement 08/19/23
hydralazine 10 mg tablet 10 mg PO BID Blood Pressure 08/19/23
levothyroxine 100 mcg tablet 100 mcg PO DAILY Thyroid 08/19/23
omeprazole 20 mg capsule,delayed release 20 mg PO DAILY GERD 08/19/23
furosemide 40 mg tablet 40 mg PO BID HF 30 days #30 tabs 08/29/23
empagliflozin 10 mg tablet (Jardiance) 10 mg PO DAILY heart failure 10/06/23
cetirizine 10 mg tablet (Zyrtec) 10 mg PO QPM Allergies 11/03/23
clopidogrel 75 mg tablet (Plavix) 75 mg PO DAILY Blood Clot Prevention/Tx 11/03/23
losartan 25 mg tablet 25 mg PO DAILY Blood Pressure 11/03/23
melatonin 3 mg tablet 6 mg PO HS Sleep 11/03/23
rosuvastatin 20 mg tablet 20 mg PO QPM High Cholesterol 11/03/23
acetaminophen 500 mg tablet (Pain Relief Extra Strength (acetaminophen)) 1,000 mg PO QID #60 tabs 11/07/23
docusate sodium 100 mg capsule 100 mg PO BID #20 caps 11/07/23
oxycodone 5 mg tablet 5 mg PO Q4HPRN PRN moderate pain #20 tabs 11/07/23
polyethylene glycol 3350 17 gram oral powder packet (HealthyLax) 17 g PO DAILY #30 ea 11/07/23
Home Medication Changes
acetaminophen 500 mg tablet (Pain Relief Extra Strength (acetaminophen)) 1,000 mg PO QID #60 tabs 11/07/23
docusate sodium 100 mg capsule 100 mg PO BID #20 caps 11/07/23
oxycodone 5 mg tablet 5 mg PO Q4HPRN PRN moderate pain #20 tabs 11/07/23
polyethylene glycol 3350 17 gram oral powder packet (HealthyLax) 17 g PO DAILY #30 ea 11/07/23
Pending Results: No
Total time spent discharging patient (in min): 45
--- NOTE | 2023-11-07 09:36 | W.PN.CARDCBS ---
Today's Communication / Plan
-
Stable for discharge from cardiology perspective
Wound check appointment in our office has been scheduled
Impression / Plan
-
Outpatient driver education instructor: Dr. Cesario Almazan at [facility]
Resident Surgeon: Dr. Pollard
Impression:
Status post upgrade to FREEZER LABORATORY TECHNICIAN pacemaker on November [address] Pollard utilizing a left bundle branch area lead
Nonischemic cardiomyopathy, HFrEF 35%-40% by echo 08/21/2023.
Left bundle branch block.
Sick sinus syndrome status post dual-chamber pacemaker-placed by Dr. Machado at [facility]
Aortic stenosis status post TAVR.
Paroxysmal atrial fibrillation.
Nonobstructive coronary artery disease by catheterization 08/2022.
CVA, multiple, with recent showing new embolic events, residual
� � deficits- left hemiparesis-mild, balance and gait disturbance.
Carotid artery stenosis status post left stent.
Cerebral aneurysm.
AAA.
Iron deficiency anemia requiring transfusion.
Colonic polyps.
Hiatal hernia with gastroesophageal reflux disease.
Pulmonary nodule.
Degenerative disk disease with spinal stenosis, radiculopathy.
Obstructive sleep apnea suspected.
Hypothyroidism.
Osteopenia.
COPD.
Asthma.
Peripheral arterial disease.
Hypertension.
Hyperlipidemia.
Depression, anxiety.
Insomnia
Recommendations:
-Presented back 11/04/2023 in evening with severe pain after having FREEZER LABORATORY TECHNICIAN PPM upgrade on 11/04/2023 and admitted for pain control.
-Per EP needed to move her generator position from the shoulder capsule which is not a traditional position to a more standard position in the deltopectoral groove. As such she has likely more pain in the shoulder, neck and arm region from
generator repositioning. She has no evidence of hematoma or significant drainage.
-Review of her chest x-ray, telemetry and device site reveals normal and stable device function and lead positions. She has appropriate narrow QRS on telemetry from her left bundle branch area pacing
-Still notes pain in left shoulder and neck. Continue Tylenol 650-1000 mg every 6 hours for mild pain, oxycodone 5 mg for moderate pain, oxycodone 10 mg for severe pain.
-Stable for discharge from cardiology perspective, we will sign off
-Wound check in our office arranged
Progress Note - Custom Shoemaker
Subjective
Date of Service: November 07, 2023
NAOE. Continues to report L shoulder, neck and arm pain. Otherwise, no chest pain or SOB. No LE edema.
Objective
Labs:
11/05/23 06:40
11/05/23 06:40
Labs
Hgb 11.4 g/dL (12.0-16.0) L 11/05/23 06:40
Hct 34.3 % (37.0-47.0) L 11/05/23 06:40
Plt Count 136 10^3/uL (130-400) 11/05/23 06:40
Sodium 136 mmol/L (135-145) 11/05/23 06:40
Potassium 3.7 mmol/L (3.5-5.1) 11/05/23 06:40
BUN 47 mg/dl (7-17) H 11/05/23 06:40
Creatinine 1.3 mg/dL (0.6-1.0) H 11/05/23 06:40
Glucose 92 mg/dl (70-99) 11/05/23 06:40
Vital Signs and I&O:
Vital Signs
Temp Pulse Resp BP Pulse Ox
98.2 F 77 18 106/86 95
11/07/23 07:00 11/07/23 07:00 11/07/23 07:00 11/07/23 07:00 11/07/23 07:00
Vital Signs
Temp Pulse Resp BP Pulse Ox
98.2 F 77 18 106/86 95
11/07/23 07:00 11/07/23 07:00 11/07/23 07:00 11/07/23 07:00 11/07/23 07:00
Intake & Output
11/05/23 11/06/23 11/07/23 11/08/23
06:59 06:59 06:59 06:59
Intake Total 1200 / 1200 780 / 780 1949
Output Total 705 / 705 1325 / 1325
Balance 495 / 495 -545 / -545 1949
Physical Exam
Physical Exam
Gen: NAD, AAOx3
HEENT: NC/AT, sclera anicteric
Neck: No JVD
CV: RRR, NL s1/s2
Lungs: CTAB
Abd: S/ND
Ext: No LE edema
Skin: Warm, dry, L chest wall PPM site CDI without bleeding/hematoma/erythema/drainage
Neuro: Non-focal
[2023-11-07] MEDS: COREG 12.5 MG PO (09:40)
[2023-11-07] MEDS: ASPIR LOW (ENTERIC COATED) 81 MG PO (09:40)
[2023-11-07] MEDS: JARDIANCE 10 MG PO (09:40)
[2023-11-07] MEDS: CELEXA 20 MG PO (09:43)
[2023-11-07] MEDS: PROTONIX 40 MG PO (09:43)
[2023-11-07] MEDS: TYLENOL 1000 MG PO ×2 (09:43→13:45)
[2023-11-07] MEDS: PACERONE 200 MG PO (09:43)
[2023-11-07] MEDS: COZAAR 25 MG PO (09:46)
[2023-11-07] MEDS: FEOSOL 325 MG PO (09:46)
[2023-11-07] MEDS: COLACE 100 MG PO (09:46)
[2023-11-07] MEDS: LASIX 40 MG PO (09:46)
[2023-11-07] MEDS: APRESOLINE 10 MG PO (09:47)
[2023-11-07] MEDS: HEPARIN 5000 UNITS SC (09:47)
[2023-11-07] MEDS: PLAVIX 75 MG PO (09:47)
[2023-11-07 11:00] VITALS: BP 96/77
--- NOTE | 2023-11-07 11:36 | CM ---
CM following re: d/c planning
Chart reviewed
CM met with patient at bedside to discuss d/c needs
Per PT assessment post d/c recommendation is home with VN
CM asked the patient which VN agency she'd like a referral placed and if she's had VN recently and she requested a referral placed to [facility]
Pt remains in observation and [facility] letter was provided by previous CM
Pt states that one of her daughters will transport her home at time of d/c
No additional d/c needs identified
PLAN; d/c home with [facility]
[2023-11-07 12:12] LABS: Glucose - Point of Care 118 mg/dl (70-99)
--- NOTE | 2023-11-07 12:32 | W.DCSUMMARY ---
Discharge Summary
Discharge Data
Date of Admission: 11/04/23
Date of Discharge: 11/07/23
Total time spent discharging patient (in min): 45
-
Pending Results: No
Hospital Course
83-year-old female who is status post upgrade to a CREW DISPATCHER pacemaker on [address] Pollard who presented the next day and evening with severe pain after having the pacemaker upgrade and was admitted for pain control apparently unit clerk
need to move her generator position from the shoulder capsule which is a not traditional position to a more standard position in the deltoid and deltoid pectoral groove as such the patient developed significant more pain in the shoulder neck and arm
from the generator repositioning. On presentation she had no evidence of any hematoma or significant drainage. A review of her chest x-ray and telemetry status showed the device to be in normal stable positioning with adequate function and lead
positions noted. Consultation was placed with the cardiology service after admission to the medical service for pain management she had apparently appropriate narrow QRS on telemetry for left bundle branch block. Pacing. She had protracted
periods of left shoulder and neck pain to the point that she had difficulty ambulating all PT and OT were consulted she required narcotic analgesia initially with IV forms of Dilaudid for pain relief she was transition to oxycodone 5 mg for moderate
pain and oxycodone 10 mg for severe an incidental finding was a suspect your UTI with bacteria in the urine possibly consistent with a urinary tract infection she was placed on empiric antibiotic coverage however the urine culture came back no
growth and there is no need for further antibiotic course at discharge. Cardiology has seen the patient has had MRI and she is considered stable for discharge after being seen and evaluated by physical therapy arrangements will be made for
outpatient follow-up for PT with continued pain management with oxycodone and wound check appointment through the cardiology office has been scheduled.
Discharge Plan
-
Patient Disposition: Home with Home Care
Discharge Diagnosis/Procedures: Shoulder pain from recent pacer insertion
Ambulatory dysfunction
Status post upgrade to CREW DISPATCHER pacer November 03
History of sick sinus syndrome status post dual-chamber pacer
Condition: Good
Diet: As tolerated
Activity: As tolerated and With Walker
Driving Restrictions: No driving
Other Services: VN and PT
Referrals:
Emil Pollard MD [Active] - 11/10/23 11:20 am (You have a follow-up with cardiology Dr. Pollard's for a wound check on November 10 at 11:20 AM. This is in [address] in [address] [facility] behind the hospital. If you are unable to make this appointment
please call [phone] to reschedule.)
Lisa Beth DO [Family Provider] - in less than 1 week
Prescriptions:
New
polyethylene glycol 3350 [HealthyLax] 17 gram Powder In Packet
17 g PO DAILY Qty: 30 0RF
acetaminophen [Pain Relief ES (acetaminophen)] 500 mg Tablet
1,000 mg PO QID Qty: 60 0RF
docusate sodium 100 mg Capsule
100 mg PO BID Qty: 20 0RF
oxycodone 5 mg Tablet
5 mg PO Q4HPRN PRN (Reason: moderate pain) Qty: 20 0RF
Continued
aspirin 81 mg Tablet,Delayed Release (Dr/Ec)
81 mg PO DAILY
albuterol sulfate 90 mcg/actuation Hfa Aerosol Inhaler
2 puff INHALATION R Q6HPRN PRN (Reason: SOB)
carvedilol 12.5 mg tablet
12.5 mg PO BID
amiodarone [Pacerone] 200 mg tablet
200 mg PO DAILY
citalopram 20 mg Tablet
20 mg PO DAILY
hydralazine 10 mg tablet
10 mg PO BID
levothyroxine 100 mcg tablet
100 mcg PO DAILY
ferrous sulfate 325 mg (65 mg iron) tablet
325 mg PO DAILY
omeprazole 20 mg Capsule,Delayed Release(Dr/Ec)
20 mg PO DAILY
furosemide 40 mg Tablet
40 mg PO BID 30 Days Qty: 30 2RF
Jardiance 10 mg Tablet
10 mg PO DAILY
cetirizine [Zyrtec] 10 mg Tablet
10 mg PO QPM
clopidogrel [Plavix] 75 mg Tablet
75 mg PO DAILY
losartan 25 mg Tablet
25 mg PO DAILY
rosuvastatin 20 mg Tablet
20 mg PO QPM
melatonin 3 mg Tablet
6 mg PO HS
Discharge Orders:
Discharge Patient (As Directed); Ordered 11/07/23
Ordered By: Pro Kaplan
[2023-11-07] MEDS: MIRALAX 17 GRAMS PO (12:36)
[2023-11-07] MEDS: LIDOCAINE 4% PATCH 1 PATCH TOPICAL (12:36)
[2023-11-07] MEDS: ROCEPHIN 1000 MG IV (12:38)
[2023-11-07] MEDS: STERILE WATER FOR INJECTION 10 ML IV (12:40)
== END 2023-11-07 14:12 | disposition home health service (06) ==
LOC: 4 EAST ACU 06:26
PROVIDERS: Family Medicine; ADMITTING PHYSICIAN Internal Medicine; ATTENDING PHYSICIAN Internal Medicine; EMERGENCY PHYSICIAN Emergency Medicine; FAMILY PHYSICIAN Internal Medicine; OTHER PHYSICIAN Internal Medicine Cardiovascular Disease
DX: T82.847A Pain due to cardiac prosthetic devices, implants and grafts, initial encounter (principal); Y83.8 Other surgical procedures as the cause of abnormal reaction of the patient, or of later complication, without mention of misadventure at the time of the procedure; Y92.9 Unspecified place or not applicable; M25.512 Pain in left shoulder; R30.0 Dysuria; N18.31 Chronic kidney disease, stage 3a; I13.0 Hypertensive heart and chronic kidney disease with heart failure and stage 1 through stage 4 chronic kidney disease, or unspecified chronic kidney disease; I50.22 Chronic systolic (congestive) heart failure; J44.9 Chronic obstructive pulmonary disease, unspecified; F10.10 Alcohol abuse, uncomplicated; I25.10 Atherosclerotic heart disease of native coronary artery without angina pectoris; E03.9 Hypothyroidism, unspecified; D64.9 Anemia, unspecified; D69.6 Thrombocytopenia, unspecified; I42.8 Other cardiomyopathies; I69.354 Hemiplegia and hemiparesis following cerebral infarction affecting left non-dominant side; K21.9 Gastro-esophageal reflux disease without esophagitis; K44.9 Diaphragmatic hernia without obstruction or gangrene; E78.5 Hyperlipidemia, unspecified; G47.33 Obstructive sleep apnea (adult) (pediatric); N17.9 Acute kidney failure, unspecified; I48.0 Paroxysmal atrial fibrillation; Z95.0 Presence of cardiac pacemaker; Z88.5 Allergy status to narcotic agent; Z88.8 Allergy status to other drugs, medicaments and biological substances; Z79.82 Long term (current) use of aspirin; Z79.890 Hormone replacement therapy; Z79.02 Long term (current) use of antithrombotics/antiplatelets; Z95.2 Presence of prosthetic heart valve
CPT/HCPCS: 71046; 80048; 81003; 81015; 82962; 83036; 85027; 87086; 96374; 97116; 97162; 97530; 99284; G0378

== ENCOUNTER 2024-11-18 00:12 | Emergency (ER) | payer OTHER, SELFPAY ==
[2024-11-18] VITALS (10 sets, daily range): BP systolic 103–158; BP diastolic 56–125
--- NOTE | 2024-11-18 00:40 | ED.GENMED ---
History of Present Illness
<Mina Reynaga, DO - Last Filed: 11/19/24 21:41>
General
Chief Complaint: Breathing Problem
Source: patient and ambulance crew
Exam Limitations: none
Time Seen by Provider: 11/18/24 00:34
Nursing documentation reviewed up to this point in time: agreed with
History of Present Illness
History of Present Illness:
This a pleasant 84-year-old female presents to the emergency department with 'fluid overload '. She states that she has been having difficulty breathing that has been increasing for the last few days. States that she feels 'gurgling around her
heart '. She does have a history of congestive heart failure. She has not weighed herself. She is maintained on Lasix 40 mg twice daily. She has not missed a dose. Denies fever, chills, nausea or vomiting. Reports no true chest pain but has
had episodes of GERD.
Vital signs are stable. Patient not hypoxic
Nursing note reviewed. I agree with nursing documentation up to this point in time.
Home Meds and allergies reviewed.
NUMBER AND COMPLEXITY OF PROBLEMS ADDRESSED AT THE ENCOUNTER
� Chronic conditions affecting care:, Coronary artery disease, hypertension
Congestive heart failure, atrial fibrillation
� Acute Exacerbation and/or Progression of Chronic Illness: CHF
� Differential Diagnosis includes: CHF, pneumonia,
AMOUNT AND/OR COMPLEXITY OF DATA TO BE REVIEWED AND ANALYZED
I performed an independent evaluation of the following and my interpretation is:
EKG: Atrial sensed ventricular paced rhythm rate of 79
Pulse Ox: Not Hypoxic
Medicaid Billing Specialist: Sinus Rhythm
CT:
X-rays:
Ultrasound:
Laboratory Studies:
Other:
Review of other/old records:
Clinical information was obtained by an independent historian:
Prescriptions/Medications Considered but not given:
Further testing considered but not performed:
RISK OF COMPLICATIONS AND/OR MORBIDITY OR MORTALITY OF PATIENT MANAGEMENT
Social determinants of health affecting care: Good Social Support
Discussion with other providers:
Escalation of care including admission/observation vs risk of discharge considered: After being observed in the emergency department, patient is
CRITICAL CARE NOTE: Not applicable
Total Time (exclusive of procedures):
Update:
Past History
<Mina Reynaga DO - Last Filed: 11/19/24 21:41>
Past History
ED Past Medical History: Arrthythmia, CAD (Nonobstructive), CHF and HTN
ED Past Surgical History: Cardiac (Pacemaker)
Social History
Tobacco: Non-smoker
Alcohol: Occasional
Drug: None
Personal:
Living: with family
Employment: Retired
Phy Exam
<DO Marah Killian Last Filed: 11/19/24 21:41>
General Physical Exam
General Presentation: well appearing and mild distress
General age: appears stated age
General Skin: warm and dry
General Habitus: normal
General Mental: alert
General Hydration: appears well hydrated
ENT Exam
ENT Exam: EOMI, pharynx normal, neck supple and normocephalic
Eye Exam
Eye Exam: PERRL, cornea clear and conjunctiva normal
Cardiovascular Exam
Cardiovascular Exam: regular rate/rhythm, no edema, no murmur and normal peripheral pulses
Pulmonary Exam
Pulmonary Exam: lungs clear, no respiratory distress, no rales, no crackles, no rhonchi, no stridor, no wheezing and no cough
Gastrointestinal Exam
Gastrointestinal Exam: normal bowel sounds, non tender, soft, no organomegaly, no pulsatile mass and non distended
Neurological Exam
Neurological Exam: alert, oriented x3, no motor deficits and speech normal
Musculoskeletal Exam
Musculoskeletal Exam: full ROM and no edema
Skin Exam
Skin Exam: normal color, warm/dry, no rash and no petechia
Psychiatric Exam
Psychiatric Exam: normal mood/affect
Scores
<Mina Reynaga DO - Last Filed: 11/19/24 21:41>
Heart Failure Risk
Heart Failure Risk Score: Yes
History of Stroke or TIA: No
History of intubation for respiratory distress: No
Heart rate on ED arrival >/= 110: No
SaO2 <90% on arrival on room air: No
HR >/=110 during 3min walk test (or too ill to perform test): No
ECG has acute ischemic changes: No
Urea >/=12mmol/L (BUN 33.6mg/dL): Yes
Serum CO2>/=35mmol/L: No
Troponin I or T elevated to ID Level (0.4mg/dL): No
NT-proBNP >/=5,000ng/L (5,000pg/ml): No
HF Risk Score: 1
Admission Status: MEDIUM RISK 5.1% Consider observation or discharge to home with homecare & f/u visit to PCP/[employer] And Exhibit [employer]er, or SNF for treatment
<Vernon Correia MD - Last Filed: 11/18/24 14:43>
Heart Failure Risk
HF Risk Score: 1
Admission Status: MEDIUM RISK 5.1% Consider observation or discharge to home with homecare & f/u visit to PCP/[employer] And Exhibit Designer, or SNF for treatment
Course
<Mina Reynaga DO - Last Filed: 11/19/24 21:41>
Orders/Labs/Results
Orders:
Orders
11/18/24 00:14
EKG [Electrocardiogram (*1)] Urgent
Reason for Study: Shortness of Breath
EKG- Treatment ONCE
11/18/24 00:48
CBC/With Diff [Complete Blood Count/With Diff] Urgent
CMP [Comprehensive Metabolic Panel] Urgent
Pro-BNP [NT-proBNP] Urgent
Troponin I Urgent
CR Chest - 2 Views Urgent
Comment:
Reason For Exam: dyspnea
11/18/24 01:54
Ipratropium/Albuterol Sulfate [Duoneb] 3 ml INH R NOW ONE
11/18/24 04:56
Troponin I Urgent
11/18/24 05:19
Ambulate Patient-Treatment ONCE
11/18/24 06:46
Venous Blood Gas Urgent
%Oxygen/Room Air: 94
11/18/24 07:39
Comprehensive Metabolic Panel Urgent
11/18/24 09:04
D-Dimer Urgent
11/18/24 09:35
CT Chest PE Study Urgent
Comment:
Reason For Exam: chest pain, sob
Abnormal Lab Results
11/18/24 11/18/24 11/18/24
00:48 06:46 07:39
WBC 4.5 L 10^3/uL
(4.8-10.8)
RBC 3.62 L 10^6/uL
(4.20-5.40)
Hgb 10.8 L g/dL
(12.0-16.0)
Hct 33.6 L %
(37.0-47.0)
MCHC 32.1 L g/dL
(33.0-37.0)
Abs Immat Gran (auto) 0.1 H 10^3/uL
(0-0.05)
Absolute Lymphs (auto) 1.1 L 10^3/uL
(1.2-3.4)
Immature Gran % 1.3 H %
(0-0.5)
Monocytes % 10.2 H %
(1.7-9.3)
D-Dimer
VBG pCO2 50 H mmHg
(35-48)
VBG pO2 29 L mmHg
(30-50)
Carbon Dioxide 17 L mmol/L
(22-30)
BUN 35 H mg/dl 32 H mg/dl
(7-17) (7-17)
Creatinine 1.5 H mg/dL 1.5 H mg/dL
(0.6-1.0) (0.6-1.0)
Glucose 121 H mg/dl 104 H mg/dl
(70-99) (70-99)
Total Protein 6.1 L g/dl 5.7 L g/dl
(6.3-8.2) (6.3-8.2)
11/18/24
09:04
WBC
RBC
Hgb
Hct
MCHC
Abs Immat Gran (auto)
Absolute Lymphs (auto)
Immature Gran %
Monocytes %
D-Dimer 2.32 H ug/mlFEU
(0.00-0.50)
VBG pCO2
VBG pO2
Carbon Dioxide
BUN
Creatinine
Glucose
Total Protein
11/18/24 00:48
11/18/24 07:39
Vital Signs
Initial and Last Documented VS:
Initial Vital Signs
Temp Pulse Resp BP Pulse Ox
98.4 F 78 20 131/64 97
11/18/24 00:19 11/18/24 00:19 11/18/24 00:19 11/18/24 00:19 11/18/24 00:19
Last Documented Vital Signs
Temp Pulse Resp BP Pulse Ox
98.4 F 80 18 148/56 97
11/18/24 00:19 11/18/24 13:19 11/18/24 13:19 11/18/24 13:19 11/18/24 13:19
<Vernon Correia MD - Last Filed: 11/18/24 14:43>
Orders/Labs/Results
Orders:
Orders
11/18/24 00:14
EKG [Electrocardiogram (*1)] Urgent
Reason for Study: Shortness of Breath
EKG- Treatment ONCE
11/18/24 00:48
CBC/With Diff [Complete Blood Count/With Diff] Urgent
CMP [Comprehensive Metabolic Panel] Urgent
Pro-BNP [NT-proBNP] Urgent
Troponin I Urgent
CR Chest - 2 Views Urgent
Comment:
Reason For Exam: dyspnea
11/18/24 01:54
Ipratropium/Albuterol Sulfate [Duoneb] 3 ml INH R NOW ONE
11/18/24 04:56
Troponin I Urgent
11/18/24 05:19
Ambulate Patient-Treatment ONCE
11/18/24 06:46
Venous Blood Gas Urgent
%Oxygen/Room Air: 94
11/18/24 07:39
Comprehensive Metabolic Panel Urgent
11/18/24 09:04
D-Dimer Urgent
11/18/24 09:35
CT Chest PE Study Urgent
Comment:
Reason For Exam: chest pain, sob
Abnormal Lab Results
11/18/24 11/18/24 11/18/24
00:48 06:46 07:39
WBC 4.5 L 10^3/uL
(4.8-10.8)
RBC 3.62 L 10^6/uL
(4.20-5.40)
Hgb 10.8 L g/dL
(12.0-16.0)
Hct 33.6 L %
(37.0-47.0)
MCHC 32.1 L g/dL
(33.0-37.0)
Abs Immat Gran (auto) 0.1 H 10^3/uL
(0-0.05)
Absolute Lymphs (auto) 1.1 L 10^3/uL
(1.2-3.4)
Immature Gran % 1.3 H %
(0-0.5)
Monocytes % 10.2 H %
(1.7-9.3)
D-Dimer
VBG pCO2 50 H mmHg
(35-48)
VBG pO2 29 L mmHg
(30-50)
Carbon Dioxide 17 L mmol/L
(22-30)
BUN 35 H mg/dl 32 H mg/dl
(7-17) (7-17)
Creatinine 1.5 H mg/dL 1.5 H mg/dL
(0.6-1.0) (0.6-1.0)
Glucose 121 H mg/dl 104 H mg/dl
(70-99) (70-99)
Total Protein 6.1 L g/dl 5.7 L g/dl
(6.3-8.2) (6.3-8.2)
11/18/24
09:04
WBC
RBC
Hgb
Hct
MCHC
Abs Immat Gran (auto)
Absolute Lymphs (auto)
Immature Gran %
Monocytes %
D-Dimer 2.32 H ug/mlFEU
(0.00-0.50)
VBG pCO2
VBG pO2
Carbon Dioxide
BUN
Creatinine
Glucose
Total Protein
11/18/24 00:48
11/18/24 07:39
Vital Signs
Initial and Last Documented VS:
Initial Vital Signs
Temp Pulse Resp BP Pulse Ox
98.4 F 78 20 131/64 97
11/18/24 00:19 11/18/24 00:19 11/18/24 00:19 11/18/24 00:19 11/18/24 00:19
Last Documented Vital Signs
Temp Pulse Resp BP Pulse Ox
98.4 F 80 18 148/56 97
11/18/24 00:19 11/18/24 13:19 11/18/24 13:19 11/18/24 13:19 11/18/24 13:19
<Mina Reynaga DO - Last Filed: 11/19/24 21:41>
*Radiology
Radiology exam reviewed: all reviewed NAD by ED Provider
*Pulse Oximetry
Patient hypoxic: no
*Critical Care Note
Total Time (30-74mins, 75-104mins- exclusive of procedures): Not Applicable
<Mina Reynaga DO - Last Filed: 11/19/24 21:41>
Patient Management
Social determinants of health affecting care: Strong social support
<Mina Reynaga DO - Last Filed: 11/19/24 21:41>
Update Note
Update Note:
Patient was able to ambulate around the department. She had her pulse ox that read from 95 to 97%. Patient denied any chest pain or shortness of breath. She walked steady.
<Vernon Correia MD - Last Filed: 11/18/24 14:43>
Update Note
Update Note:
Patient was able to ambulate around the department. She had her pulse ox that read from 95 to 97%. Patient denied any chest pain or shortness of breath. She walked steady.
UPDATE (Vernon Correia MD)
I have seen and evaluated the patient after signout and reviewed all labs and imaging.
Focused HPI: 84-year-old female with history as noted presents to the ER for evaluation of some chest discomfort as well as some shortness of breath and lightheadedness. She says that symptoms started a few days ago. She says she has some soreness
around her left upper chest pacemaker. She says she feels mildly short of breath and some mild lightheadedness. She follows with cardiology through [facility].
Physical exam: Awake alert not in distress. No cardiac rubs gallops or murmurs appreciated. Lungs sound clear. Trace edema around the ankles.
Medical Decision Makin-year-old female presents with some chest discomfort and some mild shortness of breath over the past few days. Pacemaker interrogated: No events. EKG shows atrial sensed ventricular paced rhythm. She had lab work sent
off including a CBC which shows stable anemia. VBG shows no significant CO2 retention. Chemistry shows stable CKD; she did have mild initial non-anion gap metabolic acidosis which resolved on serial repeat. She had serially undetectable
troponins. Her proBNP was marginally elevated--much lower than her typical. Chest x-ray shows hiatal hernia but no pneumonia, no pulmonary edema. Will add D-dimer although low clinical suspicion for PE. She has been stable throughout 8+ hour ED
observation.
D-dimer positive will send for a CTA to rule out PE.
CTA negative for PE or any other acute pathology. Patient has been in the emergency room for 12+ hours has had stable vital signs including normal respiratory rate, normal work of breathing. Her symptoms have improved. Low suspicion for emergent
pathology at this point in time I think she is stable for discharge. She feels comfortable this plan. All questions answered.
ED Attending Note
<Mina Reynaga DO - Last Filed: 11/19/24 21:41>
-
Portions of this chart may have been created with voice recognition software.� Occasional wrong word or��sound alike� substitutions may have occurred due to the inherent limitations of voice recognition software.
Discharge Plan
Departure
Patient Disposition: Home (Routine Discharge)
Date of Disposition: 11/18/24
Time of Disposition: 12:26
Patient with high blood pressure during this ER visit?: No
Discharge Problem:
Chest pain, Dyspnea
Instructions: Chest Pain NON-[facility] Set And Exhibit Designer Follow Up
Prescriptions:
No Action
aspirin 81 mg Tablet,Delayed Release (Dr/Ec)
81 mg PO DAILY
albuterol sulfate 90 mcg/actuation Hfa Aerosol Inhaler
2 puff INHALATION R Q6HPRN PRN (Reason: SOB)
carvedilol 12.5 mg tablet
12.5 mg PO BID
amiodarone [Pacerone] 200 mg tablet
200 mg PO DAILY
citalopram 20 mg Tablet
20 mg PO DAILY
hydralazine 10 mg tablet
10 mg PO BID
levothyroxine 100 mcg tablet
100 mcg PO DAILY
ferrous sulfate 325 mg (65 mg iron) tablet
325 mg PO DAILY
omeprazole 20 mg Capsule,Delayed Release(Dr/Ec)
20 mg PO DAILY
furosemide 40 mg Tablet
40 mg PO BID 30 Days Qty: 30 2RF
Jardiance 10 mg Tablet
10 mg PO DAILY
cetirizine [Zyrtec] 10 mg Tablet
10 mg PO QPM
clopidogrel [Plavix] 75 mg Tablet
75 mg PO DAILY
losartan 25 mg Tablet
25 mg PO DAILY
rosuvastatin 20 mg Tablet
20 mg PO QPM
melatonin 3 mg Tablet
6 mg PO HS
polyethylene glycol 3350 [HealthyLax] 17 gram Powder In Packet
17 g PO DAILY Qty: 30 0RF
acetaminophen [Pain Relief ES (acetaminophen)] 500 mg Tablet
1,000 mg PO QID Qty: 60 0RF
docusate sodium 100 mg Capsule
100 mg PO BID Qty: 20 0RF
oxycodone 5 mg Tablet
5 mg PO Q4HPRN PRN (Reason: moderate pain) Qty: 20 0RF
Referrals:
Lisa Beth, [Family Provider] - Follow up in 5-7 days
Interventions
Interventions:
*Risk Screen - Suicide Last Done: 11/18/24 00:19
*General Assessment Last Done: 11/18/24 00:19
*Neglect/Abuse Screening Last Done: 11/18/24 00:19
ED- Fall Risk Assessment Last Done: 11/18/24 01:46
*ED COVID-19 Vaccine History Last Done: 11/18/24 01:46
*Nursing Disposition Last Done: 11/18/24 13:19
ED- Cardiac Assessment Last Done: 11/18/24 01:46
ED- Pulmonary Assessment Last Done: 11/18/24 01:46
Discharge Date and Time
Discharge Date/Time: 11/18/24 13:22
Print Language: [place]
[2024-11-18 00:56] LABS: % Basophils 0.7 % (0-2); % Eosinophils 4.9 % (0-6); % Immature Granulocytes 1.3 % (0-0.5); % Lymphocytes 24.6 % (20.5-51.1); % Monocytes 10.2 % (1.7-9.3); % Neutrophils 58.3 % (42.2-75.2); Absolute Eosinophils 0.2 10^3/uL (0-0.7); Absolute Immature Granulocytes 0.1 10^3/uL (0-0.05); Absolute Lymphocytes 1.1 10^3/uL (1.2-3.4); Absolute Monocytes 0.5 10^3/uL (0.1-0.6); Absolute Neutrophils 2.6 10^3/uL (1.4-6.5); Hematocrit 33.6 % (37.0-47.0); Hemoglobin 10.8 g/dL (12.0-16.0); Mean Corp Hgb Conc. 32.1 g/dL (33.0-37.0); Mean Corpuscular Hgb 29.8 pg (27.0-31.0); Mean Corpuscular Volume 92.8 fL (81.0-99.0); Mean Platelet Volume 9.6 fL (7.4-10.4); Nucleated Red Blood Cells % 0 %; Platelet Count 147 10^3/uL (130-400); Red Blood Cell Count 3.62 10^6/uL (4.20-5.40); Red Cell Dist. Width 13.8 % (11.5-14.5); White Blood Cell Count 4.5 10^3/uL (4.8-10.8)
[2024-11-18 01:16] LABS: ALT (SGPT) 13 U/L (0-35); AST (SGOT) 27 U/L (14-36); Albumin 4.1 g/dl (3.5-5.0); Alkaline Phosphatase 91 U/L (38-126); Blood Urea Nitrogen 35 mg/dl (7-17); Calcium 8.9 mg/dl (8.4-10.2); Carbon Dioxide 17 mmol/L (22-30); Chloride 107 mmol/L (98-107); Estimated Creatinine Clearance 20 ml/min; Glucose 121 mg/dl (70-99); Potassium 4.3 mmol/L (3.5-5.1); Sodium 137 mmol/L (135-145); Total Bilirubin 0.7 mg/dl (0.2-1.3); Total Protein 6.1 g/dl (6.3-8.2); eGFR 34.36
[2024-11-18 01:25] LABS: NT-proBNP 1720 pg/ml; Troponin I < 0.012 ng/ml
[2024-11-18] MEDS: DUONEB 3 ML INH (02:35)
[2024-11-18 05:30] LABS: Troponin I < 0.012 ng/ml
[2024-11-18 06:52] LABS: Venous Blood Gas B.E. 0.6 mmol/L (-4 to +4); Venous Blood Gas O2 Sat % 51.4 %; Venous Blood Gas pCO2 50 mmHg (35-48); Venous Blood Gas pH 7.34 (7.32-7.43); Venous Blood Gas pO2 29 mmHg (30-50)
[2024-11-18 08:17] LABS: ALT (SGPT) 12 U/L (0-35); AST (SGOT) 21 U/L (14-36); Albumin 3.6 g/dl (3.5-5.0); Alkaline Phosphatase 78 U/L (38-126); Blood Urea Nitrogen 32 mg/dl (7-17); Calcium 8.8 mg/dl (8.4-10.2); Carbon Dioxide 24 mmol/L (22-30); Chloride 106 mmol/L (98-107); Estimated Creatinine Clearance 20 ml/min; Glucose 104 mg/dl (70-99); Potassium 3.6 mmol/L (3.5-5.1); Sodium 139 mmol/L (135-145); Total Bilirubin 0.3 mg/dl (0.2-1.3); Total Protein 5.7 g/dl (6.3-8.2); eGFR 34.36
[2024-11-18 09:25] LABS: D-Dimer 2.32 ug/mlFEU (0.00-0.50)
== END 2024-11-18 13:22 | disposition home or self-care (01) ==
LOC: EMR 00:12
PROVIDERS: Emergency Medicine; EMERGENCY PHYSICIAN Student in an Organized Health Care Education/Training Program; FAMILY PHYSICIAN Internal Medicine
DX: R07.89 Other chest pain (principal); I13.0 Hypertensive heart and chronic kidney disease with heart failure and stage 1 through stage 4 chronic kidney disease, or unspecified chronic kidney disease; N18.9 Chronic kidney disease, unspecified; I50.9 Heart failure, unspecified; I25.10 Atherosclerotic heart disease of native coronary artery without angina pectoris; I48.91 Unspecified atrial fibrillation; K21.9 Gastro-esophageal reflux disease without esophagitis; Z79.899 Other long term (current) drug therapy; Z95.0 Presence of cardiac pacemaker
CPT/HCPCS: 93288; 94640; 99285; 71046; 71275; 80053; 82805; 83880; 84484; 85025; 85379; 93005; Q9967

== ENCOUNTER 2025-02-05 23:30 | Inpatient (IN) | payer OTHER, SELFPAY ==
[2025-02-05] VITALS (9 sets, daily range): BP systolic 126–177; BP diastolic 85–118; BMI 24.5
[2025-02-05 18:07] LABS: % Basophils 0.6 % (0-2); % Eosinophils 1.5 % (0-6); % Immature Granulocytes 0.6 % (0-0.5); % Lymphocytes 16.1 % (20.5-51.1); % Monocytes 8.2 % (1.7-9.3); Absolute Eosinophils 0.1 10^3/uL (0-0.7); Absolute Lymphocytes 0.8 10^3/uL (1.2-3.4); Absolute Monocytes 0.4 10^3/uL (0.1-0.6); Absolute Neutrophils 3.8 10^3/uL (1.4-6.5); Hematocrit 40.4 % (37.0-47.0); Hemoglobin 13.5 g/dL (12.0-16.0); Mean Corp Hgb Conc. 33.4 g/dL (33.0-37.0); Mean Corpuscular Hgb 29.1 pg (27.0-31.0); Mean Corpuscular Volume 87.1 fL (81.0-99.0); Mean Platelet Volume 9.5 fL (7.4-10.4); Nucleated Red Blood Cells % 0 %; Platelet Count 145 10^3/uL (130-400); Red Blood Cell Count 4.64 10^6/uL (4.20-5.40); White Blood Cell Count 5.2 10^3/uL (4.8-10.8)
[2025-02-05 18:26] LABS: ALT (SGPT) 16 U/L (0-35); AST (SGOT) 26 U/L (14-36); Albumin 4.1 g/dl (3.5-5.0); Alkaline Phosphatase 77 U/L (38-126); Blood Urea Nitrogen 20 mg/dl (7-17); Calcium 9.5 mg/dl (8.4-10.2); Carbon Dioxide 23 mmol/L (22-30); Chloride 106 mmol/L (98-107); Glucose 103 mg/dl (70-99); Potassium 4.2 mmol/L (3.5-5.1); Sodium 136 mmol/L (135-145); Total Bilirubin 0.7 mg/dl (0.2-1.3); Total Protein 6.5 g/dl (6.3-8.2); eGFR 44.91
[2025-02-05 18:31] LABS: Troponin I < 0.012 ng/ml
[2025-02-05 18:49] LABS: NT-proBNP 5030 pg/ml
--- NOTE | 2025-02-05 20:34 | ED.GENMED ---
History of Present Illness
General
Chief Complaint: Cardiac Symptoms
Source: patient and family
Time Seen by Provider: 02/05/25 20:15
History of Present Illness
History of Present Illness:
This patient is a 84-year-old female with an extensive prior medical history who states that for the past few days she has been feeling congested with a cough, no hemoptysis. Today, she felt particularly dizzy described as lightheaded associated
with feeling clammy and nauseous. This lasted about 4 hours and then improved. She also notes episodes of 'indigestion' described as discomfort in the epigastric. Similar to reflux that she has had in the past. Patient has dyspnea at baseline
but is not worsening. She denies orthopnea, PND, lower extremity edema. She is unclear if her weight is changed. She denies anorexia, vomiting, fever, chills. She has been having intermittent discomfort in the upper back that comes and goes
without specific provoking or relieving factors most recently earlier today. Daughter is at bedside and discloses that patient has been very noncompliant with her medications over the last 3 weeks. When asked why, the patient states that she
forgets to take it.
Past History
Past History
ED Past Medical History: Arrthythmia, CAD (Nonobstructive), CHF and HTN
ED Past Surgical History: Cardiac (Pacemaker)
Social History
Tobacco: Non-smoker
Alcohol: Occasional
Drug: None
Personal:
Living: with family
Employment: Retired
Phy Exam
Physical Exam
Physical Exam:
GENERAL: Alert , in no apparent distress
EYE: pupils equal and reactive
NECK: Supple, no significant adenopathy.
ENT: o/p clr, mmm.
CARDIAC: Regular rate and rhythm .
LUNGS: Equal breath sounds bilaterally, no acute respiratory distress, no wheezes or rhonchi, bibasilar rales noted
ABDOMEN: Soft, without focal tenderness, no r/g, no cvat
NEUROLOGICAL: Alert and oriented, no focal neuro deficits
SKIN: Warm and dry, skin intact.
MUSCULOSKELETAL: Trace bilateral lower extremity edema, well perfused.
PSYCH: Normal and appropriate interaction.
Course
Orders/Labs/Results
Orders:
Orders
02/05/25 17:54
Electrocardiogram (*1) Urgent
Reason for Study: Chest Pain
CR Chest - 2 Views Urgent
Comment:
Reason For Exam: chest pain
02/05/25 18:00
Complete Blood Count/With Diff Urgent
Comprehensive Metabolic Panel Urgent
NT-proBNP Urgent
Troponin I Urgent
02/05/25 22:28
Furosemide [Lasix] 40 mg IV NOW STA
02/05/25 23:00
Flush (0.9% Sodium Chloride) [Flush (Nss)] See Dose Instructions IV PER PROTOCOL
02/05/25 23:09
Admit/Transfer Patient As Directed
Co-Sign Provider:
Level of Care: Inpatient admission
Assign to:: Telemetry
Physician / Group: Papito
Diagnosis: CHF
Reason for Telemetry: Acute Heart Failure
Date to Stop Telemetry: 02/08/25
Time to Stop Telemetry: 11:00
Reason for Hospitalization: IV diuretics
Expected length of stay greater than two midnights?: Yes
ELOS- Estimated Length of Stay in days: 3
I certify the patient meets the requirements for IP care: Yes
PRN Pain Medication Management As Directed
May give lesser potent ordered pain med per pt: Yes
preference::
Protocol:: Medication orders for pain may be administered in a
manner that supports deferring to patient preference
when the pt is:
- Requesting an ordered lesser potent pain medication.
Least to most potent pain medications are defined
as: acetaminophen < NSAID < tramadol < opioids
(morphine, oxycodone, hydromorphone).
- Requesting a lesser dose of the same medication IF
ORDERED.
- Requesting a less intrusive route of administration
if both routes are prescribed by the provider (PO <
IV).
02/05/25 23:11
Code Status As Directed
Resuscitation Status: Full Code
02/05/25 23:15
Troponin I Q6H
02/06/25 00:49
Albuterol Nebs [Ventolin Nebules] 2.5 mg INH R Q4HPRN PRN
02/06/25 00:49
Echo 2D MMode Color/Doppler Routine
Reason for Study: heart failure
CARDIOLOGY CONSULT Routine
Consulting Provider: Mike Arroyo
Was physician already notified: No
Reason for consult: CHF
Consult Notification Routine
Specialty to Notify: Cardiology
Date consulting provider notified: 02/06/25
Time consulting provider notified: 07:23
Notified:: Provider
Comment: TT
HF DIETARY CONSULT Routine
HF EDUCATOR CONSULT Routine
Comment:
Activity As Directed
Activity Level: Out of Bed-Early Mobility
Intake/ Output As Directed
Frequency: Per unit guidelines
Patient Education As Directed
Type: CHF folder
Comment: give on admission. Document in Interdisciplinary Education record
Pneumatic Compression Sleeves As Directed
Type: Knee high
Sleep Apnea Assessment by RN As Directed
Comment:
Physician Instructions:
Vital Signs As Directed
Frequency: Other
Additional Instructions:: Q12 or per unit guidelines if more frequent.
Weight As Directed
Frequency: Daily
Type of Scale: Standing Scale
Comment: Daily morning weight. If unable to stand, use balanced bed scale.
Weight As Directed
Frequency: Once
Type of Scale: Standing Scale
Comment: Upon Admission. If unable to stand, use balanced bed scale.
Pulse Ox/cont/shift [RESP] Routine
Quantity: 1
Special Instructions: Daily pulse oximetry at rest. If greater than 92% at rest also obtain pulse oximetry
while ambulating as tolerated.
DX Deep Vein Thrombosis Video Routine
02/06/25 01:00
Budesonide/Formoterol 80/4.5 [Symbicort 80/4.5 Mcg Inhaler] 1 puff INH R BID
02/06/25 06:00
Levothyroxine [Synthroid] 100 mcg PO DAILY @ 0600
02/06/25 08:00
Amiodarone [Pacerone] 200 mg PO DAILY
Carvedilol [Coreg] 12.5 mg PO BID
Citalopram [Celexa] 20 mg PO DAILY
Dapagliflozin [Farxiga] 10 mg PO DAILY
Ferrous Sulfate [Feosol] 325 mg PO DAILY
Furosemide [Lasix] 40 mg IV BID AT 0800,1600
Losartan [Cozaar] 12.5 mg PO DAILY
Pantoprazole [Protonix] 40 mg PO DAILY
02/06/25 08:23
Basic Metabolic Panel IN AM
Cardiovascular Evaluation IN AM
Complete Blood Count/No Diff IN AM
Magnesium IN AM
TSH Reflex To Free T4 IN AM
Troponin I Q6H
02/06/25 Dinner
Cholesterol Lowering
At Your Request: Full Participation
Cholesterol Lowering: Sodium, 2 Gram
02/06/25 18:00
Rosuvastatin Calcium [Crestor] 20 mg PO QPM
02/06/25 22:00
Melatonin 6 mg PO HS
02/07/25 06:24
Basic Metabolic Panel IN AM
02/08/25 06:31
Basic Metabolic Panel IN AM
02/08/25 11:00
DC Protocol for Telemetry ONCE
Abnormal Lab Results
02/05/25
18:00
Absolute Lymphs (auto) 0.8 L 10^3/uL
(1.2-3.4)
Immature Gran % 0.6 H %
(0-0.5)
Lymphocytes % 16.1 L %
(20.5-51.1)
BUN 20 H mg/dl
(7-17)
Creatinine 1.2 H mg/dL
(0.6-1.0)
Glucose 103 H mg/dl
(70-99)
02/05/25 18:00
02/05/25 18:00
Vital Signs
Initial and Last Documented VS:
Initial Vital Signs
Temp Pulse Resp BP Pulse Ox
98.3 F 72 20 162/118 96
02/05/25 17:51 02/05/25 17:51 02/05/25 17:51 02/05/25 17:51 02/05/25 17:51
Last Documented Vital Signs
Temp Pulse Resp BP Pulse Ox
98.3 F 75 18 109/62 98
02/08/25 15:15 02/08/25 15:15 02/08/25 15:15 02/08/25 15:15 02/08/25 15:15
*Critical Care Note
Total Time (30-74mins, 75-104mins- exclusive of procedures): Not Applicable
Update Note
Update Note:
Patient presents to the Emergency Department with weak, lightheaded, etc.
Number and Complexity of Problems Addressed at the Encounter
� Chronic conditions affecting care:
� Acute Exacerbation and/or Progression of Chronic Illness:
� Differential Diagnosis includes: But not limited to ACS, CHF exacerbation, pneumonia, etc.
Amount and/or Complexity of Data to be Reviewed and Analyzed
� I performed an independent evaluation of and my interpretation is:
EKG:
CT:
Xrays:
Laboratory Studies:
Other:
� Review of other/old records reveals:
� Clinical information was obtained by an independent historian: Daughter who is at bedside
� Prescriptions/Medications Considered but not given:
� Further testing considered but not performed:
Risk of Complications and/or Morbidity or Mortality of Patient Management
� Social determinants of health affecting care:
� Discussion with other providers (PCP, Hospitalists, Consultants, etc):
� Escalation of care including admission/observation vs risk of discharge considered:
ED Attending Note
-
Portions of this chart may have been created with voice recognition software.� Occasional wrong word or��sound alike� substitutions may have occurred due to the inherent limitations of voice recognition software.
Discharge Plan
Departure
Patient Disposition: Admit
Date of Disposition: 02/05/25
Time of Disposition: 22:54
Admit to: Telemetry
Presentation/result/management discussed w/ accepting MD/DO: Hospitalist
Condition: Fair
Discharge Problem:
Heart failure
Interventions
Interventions:
*Risk Screen - Suicide Last Done: 02/05/25 20:15
*General Assessment Last Done: 02/05/25 20:15
*Neglect/Abuse Screening Last Done: 02/05/25 20:15
*ED- Fall Risk Assessment Last Done: 02/05/25 20:15
*ED COVID-19 Vaccine History Last Done: 02/05/25 20:15
*Nursing Disposition Last Done: 02/06/25 00:21
ED- Cardiac Assessment Last Done: 02/05/25 20:15
ED- Pulmonary Assessment Last Done: 02/05/25 20:15
Discharge Date and Time
Discharge Date/Time: 02/06/25 00:48
--- NOTE | 2025-02-05 22:34 | HPS.HSE ---
Addendum entered and electronically signed by Jonatan Cobos DO 02/05/25 23:36:
Patient seen and examined independently. Agree with findings and plan as set forth by Amanda Meza PA-C.
Patient is an 84y F with PMH significant for ASCVD, CHF, A-Fib and CKD who presents to ED complaining of SOB and chest discomfort. Patient reports intermittent symptoms for about one week. Some cough and audible wheezing. Pos dyspnea - mostly
at night. She describes occasional chest discomfort and back discomfort. No clear association with exertion. Patient notes that her daughter manages her medications. She does not weigh herself daily, but has noted some increase in ankle swelling.
Ass:
Acute on Chronic HFrEF
Chest Pain
ASCVD
Paroxysmal Atrial Fibrillation
Benign Hypertension
COPD without Acute Exacerbation
Hypothyroidism
Plan:
Admit for further evaluation and treatment.
IV Lasix BID and follow I/Os, daily weights, etc.
Follow serial troponin and monitor for any recurrent chest pain, etc.
Cardiology evaluation for additional recommendations.
Continue other usual CV medications.
Continue Symbicort.
Not on chronic OAC, reportedly due to fall risk / history of anemia.
Original Note:
Family Physician
-
Family Physician: Lisa Beth
Chief Complaint
-
Cough, Shortness of Breath and Chest Pain
History of Present Illness
Patient is an 84 y/o female past medical history of ASCVD, CHF, A-Fib, HTN, CKD and COPD who presents with cough, shortness of breath, and chest pain. Patient reports ongoing symptoms for about a week. She reports increased cough and shortness of
breath particularly at night. She reports cough is productive of a whitish mucus. She has been using her inhaler frequently at night with some improvement in symptoms. She reports slight lower extremity edema. She does not weight herself on a
daily basis. She also complains of intermittent chest pain. She describes an intermittent pressure across her chest, some times sharp pain, and sometimes radiating to the back. She denies fevers, sweats or chills.
Medical History
Past Medical History
Past Medical History: Reports Other
Additional Past Medical History:
ASCVD s/p Cardiac Stents and Left Carotid Stents
Chronic HFrEF
Cerebral Aneurysm
AAA
Aortic Stenosis s/p TAVR
Mitral Regurgitation
Non-Sustained VT
Sick Sinus Syndrome
Paroxysmal Atrial Fibrillation
Cardioembolic CVA
Essential Hypertension
Hyperlipidemia
CKD Stage III
COPD
Hypothyroidism
GERD / Hiatal Hernia
Anxiety / Depression
Past Surgical History: Reports Other
Additional Past Surgical History:
Left Carotid Artery Stent
TAVR
PPM Placement
Tubal Ligation
Cataracts
Social History
Tobacco: Non-smoker
Alcohol: Occasional
Drug: None
Family History
Family History: Not pertinent
Allergies / Home Medications
Allergies reflects when Allergies were last updated in [employer].
Home Medications with original date entered in [employer]
Allergy/Medication List:
Allergies
Allergy/AdvReac Type Severity Reaction Status Date / Time
codeine Allergy dizzy Verified 02/05/25 17:51
losartan Allergy Anaphylaxis Verified 02/05/25 17:51
sacubitril [From Entresto] Allergy Anaphylaxis Verified 02/05/25 17:51
valsartan [From Entresto] Allergy Anaphylaxis Verified 02/05/25 17:51
Home Medications
albuterol sulfate 90 mcg/actuation aerosol inhaler 2 puff inhalation R Q6HPRN PRN SOB 07/31/22
amiodarone 200 mg tablet (Pacerone) 200 mg PO DAILY Heart Disease/Condition 05/28/23
carvedilol 12.5 mg tablet 12.5 mg PO BID Heart Disease/Condition 05/28/23
citalopram 20 mg tablet 20 mg PO DAILY Depression 05/28/23
ferrous sulfate 325 mg (65 mg iron) tablet 325 mg PO DAILY Supplement 08/19/23
levothyroxine 100 mcg tablet 100 mcg PO DAILY Thyroid 08/19/23
omeprazole 20 mg capsule,delayed release 20 mg PO DAILY GERD 08/19/23
furosemide 40 mg tablet 40 mg PO BID HF 30 days #30 tabs 08/29/23
empagliflozin 10 mg tablet (Jardiance) 10 mg PO DAILY heart failure 10/06/23
losartan 25 mg tablet 12.5 mg PO DAILY Blood Pressure 11/03/23
melatonin 3 mg tablet 6 mg PO HS Sleep 11/03/23
rosuvastatin 20 mg tablet 20 mg PO QPM High Cholesterol 11/03/23
acetaminophen 500 mg tablet (Pain Relief Extra Strength (acetaminophen)) 1,000 mg PO Q6HPRN PRN mild pain / fever 02/05/25
budesonide-formoterol HFA 80 mcg-4.5 mcg/actuation aerosol inhaler (Symbicort) 1 puff inhalation Q12H 02/05/25
Review of Systems
-
A 12 point ROS was completed and negative except as noted: Yes
Constitutional: Denies Fever
Respiratory: Reports Cough and Trouble Breathing
Cardiac: Reports Chest Pain; Denies Palpitations
Neurological: Reports Dizzy
Physical Exam
Vital Signs
Vital Signs
Temp Pulse Resp BP Pulse Ox
98.3 F 64 12 173/87 96
02/05/25 17:51 02/05/25 21:00 02/05/25 21:00 02/05/25 21:00 02/05/25 21:00
Physical Exam
General: Comfortable and Conversant
HEENT: Anicteric and Moist mucous membranes
Respiratory: Rales (Bilateral Bases) and Non Labored Respirations
Cardiac: S1/S2, Regular Rhythm and Murmur
GI: Soft and Non Tender
Rectal: Deferred by Provider
Musculoskeletal: No Clubbing, No Cyanosis and Other (Trace non-pitting lower extremity edema)
Skin: Warm and Dry
Neuro: Awake, Alert, Oriented and Nonfocal/grossly intact
Psych: Calm
Laboratory Results
-
02/05/25 18:00
02/05/25 18:00
Laboratory Results
Total Bilirubin 0.7 mg/dl (0.2-1.3) 02/05/25 18:00
AST 26 U/L (14-36) 02/05/25 18:00
ALT 16 U/L (0-35) 02/05/25 18:00
Alkaline Phosphatase 77 U/L (38-126) 02/05/25 18:00
Troponin I < 0.012 ng/ml 02/05/25 18:00
Data Reviewed
-
Diagnostic Radiology: Report Reviewed by me
Lab Data: Labs Reviewed by me
Old Records: Reviewed
Impression/Plan
-
Acute on Chronic HFrEF
-Echo Aug 2023: Mild to moderately reduced left ventricular systolic function with EF 35-40%. Global hypokinesis. Mild concentric LVH. Small PFO
-Consult Cardiology
-Obtain updated Echo
-Continue Lasix 40mg IV BID
-Continue Jardiance
-Monitor Daily Weights
Paroxysmal Atrial Fibrillation
Sick Sinus Syndrome s/p Pacemaker
-Continue amiodarone for rhythm control
-Patient is not on anticoagulation due to fall risk and prior iron deficiency anemia
ASCVD s/p Cardiac and Left Carotid Stent
-Continue aspirin
Essential Hypertension
-Continue losartan and carvedilol
Hyperlipidemia
-Continue Crestor
COPD, no acute exacerbation
-Continue Symbicort
Hypothyroidism
-Continue levothyroxine
Anxiety / Depression
-Continue citalopram
GERD / Hiatal Hernia
-Continue Protonix
DVT proph: SCDs
Code Status: Full Code
[2025-02-05] MEDS: LASIX 40 MG IV (23:39)
[2025-02-06] VITALS (7 sets, daily range): BP systolic 92–153; BP diastolic 51–113; BMI 22.0; BMI 22.1
[2025-02-06 02:03] LABS: Troponin I < 0.012 ng/ml
[2025-02-06] MEDS: SYMBICORT 80/4.5 MCG INHALER INH (03:17)
[2025-02-06] MEDS: SYNTHROID 100 MCG PO (05:38)
[2025-02-06] MEDS: SYMBICORT 80/4.5 MCG INHALER 1 PUFF INH ×2 (08:12→19:37)
[2025-02-06 08:47] LABS: Hematocrit 40.8 % (37.0-47.0); Hemoglobin 13.7 g/dL (12.0-16.0); Mean Corp Hgb Conc. 33.6 g/dL (33.0-37.0); Mean Corpuscular Hgb 29.9 pg (27.0-31.0); Mean Corpuscular Volume 89.1 fL (81.0-99.0); Mean Platelet Volume 9.7 fL (7.4-10.4); Platelet Count 157 10^3/uL (130-400); Red Blood Cell Count 4.58 10^6/uL (4.20-5.40); Red Cell Dist. Width 13.2 % (11.5-14.5); White Blood Cell Count 4.9 10^3/uL (4.8-10.8)
[2025-02-06] MEDS: COZAAR 12.5 MG PO (08:54)
[2025-02-06] MEDS: FARXIGA 10 MG PO (08:54)
[2025-02-06] MEDS: PROTONIX 40 MG PO (08:54)
[2025-02-06] MEDS: LASIX 40 MG IV (08:55)
[2025-02-06] MEDS: COREG 12.5 MG PO ×2 (08:56→21:28)
[2025-02-06] MEDS: PACERONE 200 MG PO (08:56)
[2025-02-06] MEDS: FEOSOL 325 MG PO (08:56)
[2025-02-06] MEDS: CELEXA 20 MG PO (08:56)
[2025-02-06 09:20] LABS: Troponin I < 0.012 ng/ml
[2025-02-06 10:02] LABS: Blood Urea Nitrogen 26 mg/dl (7-17); Calcium 9.3 mg/dl (8.4-10.2); Carbon Dioxide 26 mmol/L (22-30); Chloride 106 mmol/L (98-107); Estimated Creatinine Clearance 19 ml/min; Glucose 98 mg/dl (70-99); HDL Cholesterol 67 mg/dl; LDL Cholesterol, Calculated 145 mg/dl; Magnesium 2.2 mg/dl (1.6-2.3); Potassium 4.2 mmol/L (3.5-5.1); Sodium 142 mmol/L (135-145); Total Cholesterol 234 mg/dl (50-199); Triglyceride 113 mg/dl (10-149); Very Low Density Lipoprotein 22 mg/dl (0-30)
[2025-02-06 10:13] LABS: TSH Reflex To Free T4 3.69 uIU/ml (0.47-4.68)
--- NOTE | 2025-02-06 12:17 | CON.CAR ---
Addendum entered and electronically signed by Rupinder Elias PA-C 02/06/25 16:42:
she has medtronic BiV PPM. will interrogate device in AM.
Addendum entered and electronically signed by Abundio Hardin MD 02/06/25 16:09:
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 She still feels that she is volume overloaded. Overall seems to be in no distress, very vivacious and pleasant
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
Medications: Carvedilol 12.5 twice daily, citalopram, iron, dapagliflozin, Synthroid, pantoprazole, amiodarone 200 mg a day, rosuvastatin 20 mg a day, furosemide 40 IV twice daily and losartan 12.5 daily, outpatient furosemide is 40 p.o. twice daily
92/51, 132/97, weight is 51.4 kg, was 57 kg yesterday, no acute distress, pleasant, lungs are relatively clear, very soft systolic murmur, JVD okay, mild edema, abdomen benign
Hemoglobin is 13.7, BUN/creatinine are 26 and 1.6, creatinine is 1.5 as of November ECG sinus rhythm with ventricular paced
Echo is pending
Assessment:
Acute on chronic heart failure with improved EF
Chronic severe pulmonary hypertension noted on chest x-ray
History of nonischemic cardiomyopathy
s/p TAVR
Syncope secondary to sick sinus syndrome status post pacemaker placement with subsequent upgrade to BiV device
CKD
Chronic left bundle branch block
Hypertension
Hyperlipidemia
PAF
Not felt to be OAC candidate given 'excessive fall risk'
PVD
COPD/asthma
CVD status post left carotid stent
History of stroke
iron deficiency anemia
GERD
Hypothyroidism
Hiatal hernia
Unintentional medication noncompliance
Plan:
Overall, she appears relatively stable and her volume status is reasonable although perhaps still somewhat volume overloaded. Will continue IV furosemide. Her creatinine was 1.2, now 1.6 but her baseline is usually around 1.5. Hopefully
transition to oral in 1 to 2 days.
Continue dapagliflozin.
Given CKD would hold spironolactone at this time.
She remains without anticoagulation by her choice. Currently, in sinus rhythm
Original Note:
Consultation
Consultation Request
Date/Time Consultation Performed: 02/06/25
Requesting Provider: Dr. Viramontes
Performing Provider: Rupinder Elias PA-C for Dr. BARRY Hardin
Reason for Consultation: CHF
Medical History
-
Chief Complaint: SOB
History of Present Illness:
Patient is an 84-year-old female with past medical history of aortic stenosis status post TAVR, iron deficiency anemia, CVD status post left carotid stent, hypertension, hyperlipidemia, PVD, COPD/asthma, syncope secondary to sick sinus syndrome
status post pacemaker with subsequent upgrade to BiV device given LV dysfunction and left bundle branch block, chronic heart failure with reduced EF, CKD, history of stroke, who presents to ER due to SOB. She reports over the last week she has
noted feeling poorly with lightheadedness, nausea, flushing, and weakness. 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 She reports she normally has a lot of vigor, however has felt
generally she reports worsening shortness of breath initially with exertion, however prior to admission even at rest as well as lower extremity edema and orthopnea. She reports waking up coughing about 1/2-hour after going to bed at night. She
presented to ER for further evaluation. Troponins were negative. proBNP 5030. Chest x-ray with severe chronic pulmonary hypertension which appears unchanged by chest x-ray.
PMH:
Chronic heart failure with reduced EF
Nonischemic cardiomyopathy
s/p TAVR
Syncope secondary to sick sinus syndrome status post pacemaker placement with subsequent upgrade to BiV device
CKD
Chronic left bundle branch block
Hypertension
Hyperlipidemia
PAF
Not felt to be OAC candidate given 'excessive fall risk'
PVD
COPD/asthma
CVD status post left carotid stent
History of stroke
iron deficiency anemia
GERD
Hypothyroidism
Past Medical History
Past Medical History: Other (in HPI)
Social History
Tobacco: Non-Smoker
Alcohol: Occasional
Personal:
Living: Alone
Employment: Retired
Family History
Family History: Reviewed & Not Pertinent
Allergies / Home Medications
Allergy/AdvReac Type Severity Reaction Status Date / Time
codeine Allergy dizzy Verified 02/05/25 17:51
losartan Allergy Anaphylaxis Verified 02/05/25 17:51
sacubitril [From Entresto] Allergy Anaphylaxis Verified 02/05/25 17:51
valsartan [From Entresto] Allergy Anaphylaxis Verified 02/05/25 17:51
�Medication �Instructions �Recorded �Confirmed �Type
albuterol sulfate 90 mcg/actuation 2 puff inhalation R Q6HPRN PRN SOB 07/31/22 02/05/25 History
aerosol inhaler
amiodarone 200 mg tablet (Pacerone) 200 mg PO DAILY Heart 05/28/23 02/05/25 History
Disease/Condition
carvedilol 12.5 mg tablet 12.5 mg PO BID Heart 05/28/23 02/05/25 History
Disease/Condition
citalopram 20 mg tablet 20 mg PO DAILY Depression 05/28/23 02/05/25 History
ferrous sulfate 325 mg (65 mg 325 mg PO DAILY Supplement 08/19/23 02/05/25 History
iron) tablet
levothyroxine 100 mcg tablet 100 mcg PO DAILY Thyroid 08/19/23 02/05/25 History
omeprazole 20 mg capsule,delayed 20 mg PO DAILY GERD 08/19/23 02/05/25 History
release
furosemide 40 mg tablet 40 mg PO BID HF 30 days #30 tabs 08/29/23 02/05/25 Rx
empagliflozin 10 mg tablet 10 mg PO DAILY heart failure 10/06/23 02/05/25 History
(Jardiance)
losartan 25 mg tablet 12.5 mg PO DAILY Blood Pressure 11/03/23 02/05/25 History
melatonin 3 mg tablet 6 mg PO HS Sleep 11/03/23 02/05/25 History
rosuvastatin 20 mg tablet 20 mg PO QPM High Cholesterol 11/03/23 02/05/25 History
acetaminophen 500 mg tablet (Pain 1,000 mg PO Q6HPRN PRN mild pain / 02/05/25 02/05/25 History
Relief Extra Strength fever
(acetaminophen))
budesonide-formoterol HFA 80 1 puff inhalation Q12H 02/05/25 02/05/25 History
mcg-4.5 mcg/actuation aerosol
inhaler (Symbicort)
Review of Systems
-
History Source: Patient
All other systems: Negative unless noted
Physical Exam
Vital Signs
Temp Pulse Resp BP Pulse Ox
97.9 F 74 17 92/51 96
02/06/25 11:26 02/06/25 11:26 02/06/25 11:26 02/06/25 11:26 02/06/25 11:26
Lab Results
02/06/25 08:23
02/06/25 08:23
Troponin I < 0.012 ng/ml 02/06/25 08:23
Sda-S-Wfglnezocjv Pept 5030 pg/ml 02/05/25 18:00
Physical Exam
General: No Apparent Distress and Comfortable
HEENT: Normocephalic, Anicteric and Moist Mucous Membranes
Respiratory: Wheezes (few) and Non Labored Respirations
Cardiac: S1/S2 and Regular Rhythm
GI: Soft, Non Tender, Non Distended and Normal Bowel Sounds
Musculoskeletal: No Clubbing, No Cyanosis and Edema (trace of B/L LE)
Skin: Warm and Dry
Neuro: AO x 3
Impression / Plan
-
Primary Lifestyle Block Farmer: Dr. Almazan
Assessment:
Presentation with shortness of breath
Acute on chronic heart failure with improved EF
Chronic severe pulmonary hypertension noted on chest x-ray
History of nonischemic cardiomyopathy
s/p TAVR
Syncope secondary to sick sinus syndrome status post pacemaker placement with subsequent upgrade to BiV device
CKD
Chronic left bundle branch block
Hypertension
Hyperlipidemia
PAF
Not felt to be OAC candidate given 'excessive fall risk'
PVD
COPD/asthma
CVD status post left carotid stent
History of stroke
iron deficiency anemia
GERD
Hypothyroidism
Hiatal hernia
Unintentional medication noncompliance
Echo 08/21/2023: EF 35 to 40%, global hypokinesis, mild concentric LVH, mild mitral stenosis with mean gradient 5 mmHg, mild MR, severely enlarged left atrium, status post TAVR with peak/mean gradients 27/15 mmHg, no AR, mild to moderate TR, PAP
45-50, small PFO
ECHO 09/04/24: EF 60%, grade 2 diastolic dysfunction, severe left atrial dilation, mild MS due to heavy MAC and moderate pulmonary hypertension with RVSP 49 mmHg, transaortic gradient was 13 mmHg
Plan:
- Patient presents with shortness of breath, fatigue, and lightheadedness. proBNP 5030. She is not always compliant with her medications due to forgetfulness
- She was given IV Lasix yesterday and creatinine bumped from 1.2-1.6. was given 40mg IV lasix this morning. will hold PM dose and reassess Cr in AM. Cr of 1.6 is not out of her baseline by review of prior creatinine values. She does not appear to
be grossly volume overloaded on examination, however does report some swelling in her thighs. She is listed as being on Lasix 40 mg p.o. twice daily as an outpatient
- Check echo, last from 2022 as above
- Chest x-ray without acute pulmonary edema, however does show chronic severe pulmonary hypertension
- RHC may be of benefit
- She also reports some urinary symptoms and what she describes as 'kidney pain'. Will check a UA and consider a renal ultrasound, defer to primary service
- She also notes a history of iron deficiency anemia, however has not seen her residential director in some time as she states they lost their affiliation with [facility]. Hemoglobin is stable at 13.7.
- Trops negative
- Continue outpatient cardiomyopathy regimen of losartan, Jardiance, carvedilol
- She is in apaced rhythm on amiodarone 200 mg daily. will interrogate device. not anticoagulated due to 'excessive fall risk.' burden monitored through device
Data Reviewed
-
EKG: Tracing Personally Visualized and interpreted
Radiology: Report Reviewed by me
Medical Tests (Nuc Med, Echo etc): Report Reviewed by me
Labs: Labs Reviewed by me
Old Records: Reviewed
--- NOTE | 2025-02-06 12:52 | W.PN.HOSP.TC ---
Addendum entered and electronically signed by Tang Viramontes DO 02/07/25 10:59:
Additional diagnosis: RUEL on CKD 3
Original Note:
Today's Communication/Plan
-
Assessment / Plan
Assessment / Plan
General: No Apparent Distress, Comfortable and Conversant
HEENT: NormoCephalic, Moist mucous membranes, Atraumatic
Respiratory: Clear and Non Labored Respirations
Cardiac: S1/S2 and Regular Rhythm; No Rub or Gallop
GI: Soft, Non Tender, Non Distended and Normal Bowel Sounds
Musculoskeletal: No Edema, no deformity
Skin: Warm and dry
: NO Allen
Neuro: Awake, Alert, Nonfocal/grossly intact
Psych: Calm and Intact Judgment/Insight
Ms. Calhoun is an 84-year-old female with a medical history of HFrEF, paroxysmal A-fib, COPD, CKD stage III, aortic stenosis (status post TAVR), and hypothyroidism who presented with cough, shortness of breath, and chest pain that have been ongoing
for about a week prior to arrival. She also reported mild lower extremity edema. She was not sure if she had gained any weight. She was admitted for further evaluation and management of acute on chronic HFrEF.
Acute on chronic HFrEF:
- Last known EF 35 to 40% with global hypokinesis, small PFO
- Continue diuresis with Lasix 40 mg IV twice daily as blood pressure tolerates
- Beta-blockade with carvedilol 12.5 mg p.o. twice daily
- Afterload reduction with losartan 12.5 mg p.o. daily
- Takes Jardiance at home, will use Farxiga while inpatient
- Repeat echocardiogram
- Cardiology consulted
- Monitor I's and O's and daily weights
A-fib:
- Paroxysmal
- Continue amiodarone and carvedilol
- Not on anticoagulation due to fall risk and history of iron deficiency anemia
- Pacemaker in place for sick sinus syndrome
Hypothyroidism:
- Continue levothyroxine 100 mcg daily
DVT prophylaxis: SCDs
CODE STATUS: Full code
Total time spent on today's encounter was 40 minutes
Anticipated Discharge: 24 - 48 hours
Subjective/Interval History
-
Date of Service: February 06, 2025
Patient was seen and examined at bedside this morning. She says she feels generally the same as when she was first admitted.
Objective Data
-
Labs:
Laboratory Results
02/06/25
08:23
WBC 4.9
Hgb 13.7
Hct 40.8
Plt Count 157
Sodium 142
Potassium 4.2
Chloride 106
Carbon Dioxide 26
BUN 26 H
Creatinine 1.6 H
Glucose 98
Calcium 9.3
Vital Signs:
Vital Signs
Temp Pulse Resp BP Pulse Ox
97.9 F 74 17 92/51 96
02/06/25 11:26 02/06/25 11:26 02/06/25 11:26 02/06/25 11:26 02/06/25 11:26
Review of Systems
-
History Source: Patient
All other systems: Reviewed and negative
Physical Exam
-
General: No Apparent Distress
--- NOTE | 2025-02-06 13:00 | CM ---
Patient seen bedside, initial assessment completed. Patient is an 84 y/o female past medical history of ASCVD, CHF, A-Fib, HTN, CKD and COPD who presents with cough, shortness of breath, and chest pain. On room air.
Patient resides alone in a 2STH- 1 step to enter. Independent w/ ambulating w/ the use of a RW, has grab bar, shower chair and a nebulizer. Independent w/ ADLs. Has 6 supportive children. [facility], [facility].
Address, points of contact and insurance verified
PCP: Lisa Beth
Pharmacy: [address] [place] [address]
CM consulted for advanced directive, patient declined need
Plan: Anticipate home, will watch for any needs
--- NOTE | 2025-02-06 13:53 | W.PN.UPDATE ---
Update Note
Progress Note Update
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 She still feels that she is volume overloaded.
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
Medications: Carvedilol 12.5 twice daily, citalopram, iron, dapagliflozin, Synthroid, pantoprazole, amiodarone 200 mg a day, rosuvastatin 20 mg a day, furosemide 40 IV twice daily and losartan 12.5 daily, outpatient furosemide is 40 p.o. twice daily
, 132/97, weight is 51.4 kg, was 57 kg yesterday, no acute distress, pleasant, lungs are relatively clear, very soft systolic murmur, JVD okay, mild edema, abdomen benign
Hemoglobin is 13.7, BUN/creatinine are 26 and 1.6, creatinine is 1.5 as of November ECG sinus rhythm with ventricular paced
Echo is pending
Plan:
Overall, she appears relatively stable and her volume status is reasonable although perhaps still somewhat volume overloaded. Will continue IV furosemide. Her creatinine was 1.2, now 1.6 but her baseline is usually around 1.5. Hopefully
transition to oral in 1 to 2 days.
Continue dapagliflozin.
Given CKD would hold spironolactone at this time.
She remains without anticoagulation by her choice. Currently, in sinus rhythm
[2025-02-06 16:52] LABS: Urine Albumin Negative (Neg - Trace); Urine Bilirubin Negative (Negative); Urine Character Clear (Clear); Urine Color Yellow; Urine Glucose 3+ (Negative); Urine Ketone Negative (Negative); Urine Leukocyte Negative (Negative); Urine Nitrite Negative (Negative); Urine Occult Blood Negative (Negative); Urine Urobilinogen Negative (Neg - 1+)
[2025-02-06] MEDS: CRESTOR 20 MG PO (17:55)
[2025-02-06] MEDS: MELATONIN 6 MG PO (21:28)
[2025-02-06] MEDS: ROBITUSSIN 100 MG PO (21:49)
[2025-02-06] MEDS: TYLENOL 650 MG PO (22:23)
[2025-02-07 03:43] VITALS: BP 115/61
[2025-02-07 06:00] VITALS: BMI 22.3
[2025-02-07] MEDS: SYNTHROID 100 MCG PO (06:07)
[2025-02-07 07:00] VITALS: BP 139/82
[2025-02-07] MEDS: SYMBICORT 80/4.5 MCG INHALER 1 PUFF INH ×2 (07:27→19:35)
[2025-02-07 08:31] LABS: Blood Urea Nitrogen 42 mg/dl (7-17); Calcium 8.8 mg/dl (8.4-10.2); Carbon Dioxide 25 mmol/L (22-30); Chloride 103 mmol/L (98-107); Estimated Creatinine Clearance 17 ml/min; Glucose 107 mg/dl (70-99); Potassium 4.1 mmol/L (3.5-5.1); Sodium 139 mmol/L (135-145); eGFR 27.61
[2025-02-07] MEDS: CELEXA 20 MG PO (09:22)
[2025-02-07] MEDS: COZAAR 12.5 MG PO (09:22)
[2025-02-07] MEDS: FEOSOL 325 MG PO (09:25)
[2025-02-07] MEDS: FARXIGA 10 MG PO (09:25)
[2025-02-07] MEDS: PROTONIX 40 MG PO (09:26)
[2025-02-07] MEDS: PACERONE 200 MG PO (09:26)
[2025-02-07] MEDS: COREG 12.5 MG PO ×2 (09:26→21:39)
--- NOTE | 2025-02-07 10:26 | PN.CDI ---
CDI
- -
CDI:
Physician Documentation Request
Admit Date: 02/05/25 23:30
Dear Doctor Ana M,
Clinical Indicators:
Patient admitted with acute on chronic HFrEF.
02/06 Cardiology PN, 'Cr of 1.6 is not out of her baseline'
02/05, 02/06 Lasix IV 40 mg IV given.
Cr/GFR trend:
02/05/25 02/06/25
18:00 08:23
Creatinine 1.2 H 1.6 H
eGFR 44.91 31.80
Please clarify which of the following accurately represents the patient's renal status:
RUEL on CKD please provide stage
CKD only, please provide stage
Other, please specify
Criteria for RUEL*
1 Increase in serum creatinine by > or = to 0.3 mg/dL (> or = to 26.5 micromol/L) within 48 hours, OR
2 Increase in serum creatinine to > or = to 1.5 times baseline, which is known or presumed to have occurred within 7 days, OR
3 Urine volume < 0.5 nL/kg/hour for six hours
Stages of Chronic Kidney Disease*
Level Description GFR
G1 Normal or High >90
G2 Mildly decreased 60-89
G3a Mildly to moderately decreased 45-59
G3b Moderately to severely decreased 30-44
G4 Severely decreased 15-29
G5 Kidney failure <15
Use of terms such as suspected, likely, concern for, or probable (associated with a specific diagnosis that is being evaluated, monitored, or treated as if it exists) are acceptable and can be coded in the inpatient setting, when documented at the
time of discharge.
Thank you,
ED Douglass RN
CDI Specialist
available via tiger text
Please use your independent medical judgment in providing your response.
*Source: Kidney Disease: Improving Global Outcomes (KDIGO) 2012
[2025-02-07] MEDS: TYLENOL 650 MG PO ×2 (10:37→18:33)
--- NOTE | 2025-02-07 10:41 | PN.CDI ---
CDI
- -
CDI:
Physician Documentation Request
Admit Date: 02/05/25 23:30
Dear Doctor Ana M,
Clinical Indicators:
Patient admitted with acute on chronic HFrEF; PMH includes CKD 3.
02/06 Cardiology PN, 'Cr of 1.6 is not out of her baseline'
02/05, 02/06 Lasix IV 40 mg IV given.
Cr/GFR trend:
02/05/25 02/06/25
18:00 08:23
Creatinine 1.2 H 1.6 H
eGFR 44.91 31.80
Please clarify which of the following accurately represents the patient's renal status:
RUEL on CKD 3
CKD 3 only
Other, please specify
Criteria for RUEL*
1 Increase in serum creatinine by > or = to 0.3 mg/dL (> or = to 26.5 micromol/L) within 48 hours, OR
2 Increase in serum creatinine to > or = to 1.5 times baseline, which is known or presumed to have occurred within 7 days, OR
3 Urine volume < 0.5 nL/kg/hour for six hours
Stages of Chronic Kidney Disease*
Level Description GFR
G1 Normal or High >90
G2 Mildly decreased 60-89
G3a Mildly to moderately decreased 45-59
G3b Moderately to severely decreased 30-44
G4 Severely decreased 15-29
G5 Kidney failure <15
Use of terms such as suspected, likely, concern for, or probable (associated with a specific diagnosis that is being evaluated, monitored, or treated as if it exists) are acceptable and can be coded in the inpatient setting, when documented at the
time of discharge.
Thank you,
ED Douglass RN
CDI Specialist
available via tiger text
Please use your independent medical judgment in providing your response.
*Source: Kidney Disease: Improving Global Outcomes (KDIGO) 2012
[2025-02-07 11:00] VITALS: BP 113/74
--- NOTE | 2025-02-07 14:15 | W.PN.CARDCBS ---
Addendum entered and electronically signed by Abundio Hardin MD 02/07/25 16:00:
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 She still feels that she is volume overloaded. Overall seems to be in no distress, very vivacious and pleasant. States she feels better today.
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
Meds: Carvedilol 12.5 twice daily, Celexa 20 mg a day, iron, Farxiga 10 mg a day, thyroxine, pantoprazole, amiodarone 200 mg a day, rosuvastatin 20 mg a day, furosemide 40 mg twice daily, on hold losartan 12.5 mg daily
113/74, pulse 68, resp rate 19 afebrile weight is 51.8 kg up 0.4 kg pleasant, vivacious, head neck exam unremarkable, lungs clear, systolic murmur across precordium, JVD is okay, abdomen benign, trace edema
Telemetry unremarkable
BUN/creatinine are 42 and 1.8, creatinine had been 1.6 and then 1.2, outpatient furosemide was 40 mg twice daily
Echo 02/06/2025: EF 52%, mild to moderate LVH, small ventricle, stage II diastolic dysfunction, MAC, trace mitral regurgitation, severely dilated left atrium, TAVR with peak/mean gradient 30/18 mmHg, trace aortic regurgitation, mild to moderate TR,
pulmonary artery systolic pressure is 33, last EF was 35-40%
Plan:
She looks well at present, but her creatinine is up to 1.8. She appears euvolemic.
Lasix now on hold related to creatinine of 1.8. Will also hold losartan at this time. Her EF has normalized, so role for losartan is less important at present.
Continue Farxiga for now.
It is encouraging that LV function has improved.
Appreciate pulmonary input.
Original Note:
Today's Communication / Plan
-
holding lasix
consider pulm eval
Impression / Plan
-
Primary Director Writing: Dr. Almazan
Assessment:
Presentation with shortness of breath
Acute on chronic heart failure with improved EF
Chronic severe pulmonary hypertension noted on chest x-ray
History of nonischemic cardiomyopathy
s/p TAVR
Syncope secondary to sick sinus syndrome status post pacemaker placement with subsequent upgrade to BiV device
CKD
Chronic left bundle branch block
Hypertension
Hyperlipidemia
PAF
Not felt to be OAC candidate given 'excessive fall risk'
PVD
COPD/asthma
CVD status post left carotid stent
History of stroke
iron deficiency anemia
GERD
Hypothyroidism
Hiatal hernia
Unintentional medication noncompliance
Echo 08/21/2023: EF 35 to 40%, global hypokinesis, mild concentric LVH, mild mitral stenosis with mean gradient 5 mmHg, mild MR, severely enlarged left atrium, status post TAVR with peak/mean gradients 27/15 mmHg, no AR, mild to moderate TR, PAP
45-50, small PFO
ECHO 09/04/24: EF 60%, grade 2 diastolic dysfunction, severe left atrial dilation, mild MS due to heavy MAC and moderate pulmonary hypertension with RVSP 49 mmHg, transaortic gradient was 13 mmHg
ECHO 02/07/25: EF 52%, mild to moderate LVH with septum measuring 1.5 cm, stage II diastolic dysfunction, dense MAC, trace MR, TAVR with peak/mean gradients 30/18 mmHg, trace AR seen, mild to moderate TR, PAP 33 mmHg
Plan:
- Patient presents with shortness of breath, fatigue, and lightheadedness. proBNP 5030. She is not always compliant with her medications due to forgetfulness
- There was initial concern for heart failure as etiology of her symptoms, however creatinine up further today to 1.8. She does not appear to be grossly volume overloaded on examination. Holding Lasix at this time. Was on p.o. Lasix 40 mg twice
daily prior to admission
- Echo with results as above, EF preserved, TAVR well-seated
- Would consider pulmonary evaluation. Chest x-ray did show chronic severe pulmonary hypertension and she also has a large hiatal hernia
- Right heart cath may be of benefit if etiology of symptoms remains unclear
- Urinalysis unremarkable aside from 3+ glucose in urine, however patient on SGLT2 inhibitor
- She also notes history of iron deficiency anemia, however hemoglobin has been stable this admission
- Trops negative
- Continue outpatient cardiomyopathy regimen of losartan, Jardiance, carvedilol
- She is in apaced rhythm on amiodarone 200 mg daily. Device functioning appropriately by interrogation, without afib episodes. Not anticoagulated due to 'excessive fall risk.' continue to monitor burden through device
- Also snores. Could consider outpatient sleep apnea eval
Progress Note - Director Writing
Subjective
Date of Service: February 07, 2025
Resting comfortably.
Objective
Labs:
02/06/25 08:23
02/07/25 06:24
Labs
Hgb 13.7 g/dL (12.0-16.0) 02/06/25 08:23
Hct 40.8 % (37.0-47.0) 02/06/25 08:23
Plt Count 157 10^3/uL (130-400) 02/06/25 08:23
Sodium 139 mmol/L (135-145) 02/07/25 06:24
Potassium 4.1 mmol/L (3.5-5.1) 02/07/25 06:24
BUN 42 mg/dl (7-17) H 02/07/25 06:24
Creatinine 1.8 mg/dL (0.6-1.0) H 02/07/25 06:24
Glucose 107 mg/dl (70-99) H 02/07/25 06:24
Troponins
02/05/25 02/06/25 02/06/25
18:00 01:31 08:23
Troponin I < 0.012 < 0.012 < 0.012
Vital Signs and I&O:
Vital Signs
Temp Pulse Resp BP Pulse Ox
97.6 F 68 19 113/74 95
02/07/25 11:00 02/07/25 11:00 02/07/25 11:00 02/07/25 11:00 02/07/25 11:00
Vital Signs
Temp Pulse Resp BP Pulse Ox
97.6 F 68 19 113/74 95
02/07/25 11:00 02/07/25 11:00 02/07/25 11:00 02/07/25 11:00 02/07/25 11:00
Intake & Output
02/05/25 02/06/25 02/07/25 02/08/25
07:59 07:59 07:59 07:59
Intake Total 720 / 720
Output Total 200 / 200
Balance 520 / 520
Physical Exam
Physical Exam
GEN: No distress, resting comfortably
HEENT: supple, mmm
LUNGS: no audible wheezes
CV: Reg on tele
EXT: No cyanosis, clubbing, edema
NEURO: Gross non-focal
SKIN: Warm, pink, dry. No rash
--- NOTE | 2025-02-07 14:30 | W.PN.HOSP.TC ---
Today's Communication/Plan
-
Assessment / Plan
Assessment / Plan
General: No Apparent Distress, Comfortable and Conversant
HEENT: NormoCephalic, Moist mucous membranes, Atraumatic
Respiratory: No wheezing or rhonchi, patient appears dyspneic when speaking
Cardiac: S1/S2 and Regular Rhythm; No Rub or Gallop
GI: Soft, Non Tender, Non Distended and Normal Bowel Sounds
Musculoskeletal: No Edema, no deformity
Skin: Warm and dry
: NO Allen
Neuro: Awake, Alert, Nonfocal/grossly intact
Psych: Calm and Intact Judgment/Insight
Ms. Calhoun is an 84-year-old female with a medical history of HFrEF, paroxysmal A-fib, COPD, CKD stage III, aortic stenosis (status post TAVR), and hypothyroidism who presented with cough, shortness of breath, and chest pain that have been ongoing
for about a week prior to arrival. She also reported mild lower extremity edema. She was not sure if she had gained any weight. She was admitted for further evaluation and management of acute on chronic HFrEF.
Acute on chronic HFrEF:
- Last known EF 35 to 40% with global hypokinesis, small PFO
- Holding further diuresis considering RUEL, patient appears euvolemic/possibly hypovolemic
- Beta-blockade with carvedilol 12.5 mg p.o. twice daily
- Afterload reduction with losartan 12.5 mg p.o. daily
- Takes Jardiance at home, will use Farxiga while inpatient
- Repeat echocardiogram shows EF 52% with grade 2 diastolic dysfunction, PASP 33 mmHg
- Cardiology following, recommending pulmonology eval as this presentation may be due to pulmonary hypertension
- Monitor I's and O's and daily weights
RUEL on CKD stage III:
- Renal function worse today with creatinine of 1.8/EGFR 27.6
- Likely secondary to overdiuresis, Lasix currently on hold
- Will monitor
- Hemodynamically stable
A-fib:
- Paroxysmal
- Continue amiodarone and carvedilol
- Not on anticoagulation due to fall risk and history of iron deficiency anemia
- Pacemaker in place for sick sinus syndrome
Hypothyroidism:
- Continue levothyroxine 100 mcg daily
DVT prophylaxis: SCDs
CODE STATUS: Full code
Total time spent on today's encounter was 40 minutes
Anticipated Discharge: 24 - 48 hours
Subjective/Interval History
-
Date of Service: February 07, 2025
Patient was seen and examined at bedside this morning. In good spirits but still experiencing dyspnea with minimal exertion. Does not appear volume overloaded and labs this morning show an RUEL and so we will hold diuretic for now.
Objective Data
-
Labs:
Laboratory Results
02/07/25
06:24
Sodium 139
Potassium 4.1
Chloride 103
Carbon Dioxide 25
BUN 42 H
Creatinine 1.8 H
Glucose 107 H
Calcium 8.8
Vital Signs:
Vital Signs
Temp Pulse Resp BP Pulse Ox
97.6 F 68 19 113/74 95
02/07/25 11:00 02/07/25 11:00 02/07/25 11:00 02/07/25 11:00 02/07/25 11:00
I&O
02/06/25 02/07/25 02/08/25
06:59 06:59 06:59
Intake Total 720 / 720
Output Total 200 / 200
Balance 520 / 520
Review of Systems
-
History Source: Patient
Respiratory: Reports Trouble Breathing
Physical Exam
-
General: No Apparent Distress
--- NOTE | 2025-02-07 14:46 | CON.PUL ---
Consultation
Consultation Request
Date/Time Consultation Requested: 02/07/2025
Date/Time Consultation Performed: 02/07/2025
Requesting Provider: Dr. Viramontes
Performing Provider: Dr. Abram Gonzalez
Reason for Consultation: Hypoxemic respiratory failure/pulmonary pretension
Medical History
-
Chief Complaint: dyspnea
History of Present Illness:
Ms Calhoun is a very delightful 84-year-old woman with history of heart failure, nonischemic cardiomyopathy, mild intermittent asthma, aortic stenosis status post TAVR, history of left carotic stent, hypertension, hyperlipidemia, peripheral
vascular disease, recurrent syncope, being followed closely by cardiology, status post permanent pacemaker placement for sick sinus syndrome, upgraded to biventricular device due to systolic heart failure with left bundle branch block, admitted to
the hospital 02/05/2025 complaining of shortness of breath and chest discomfort. Symptoms have been intermittent for about a week. Reports some cough and audible wheezing intermittently. Does report some degree of ankle swelling on admission.
Initially admitted for diuresis.
Patient is chronically on amiodarone for rate control.
-
Overall patient feels better since admission.
She performed physical therapy without significant problems
She reports intermittent symptoms laying supine prone
Intermittent coughing sometimes with food.
Denies expiratory wheezing.
Prior pulmonary history:
Lifelong nonsmoker, no h/o second hand smoking
LTBI: positive PPD upon migrating from her home country [place] in 1958, received 1y INH prophylactic treatment (does not recall CXR results at that time)
Mild intermittent asthma/bronchitis since her early 20s, on albuterol HFA which she rarely uses for the last few y
'Left lung scarring' on chest CT evaluated by [facility] 3-4 y ago, recommended observation only, 'never seen by pulmonology'
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
Past Medical History
Past Medical History: Other (see A&P for PMH/PSH)
Social History
Tobacco: Non-smoker
Alcohol: Occasional
Drug: None
Living: With Family
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
Occupational Exposures: n
Environmental Exposures: n
Family History
Family History: Reviewed & Not Pertinent
Allergies / Home Medications
Allergies
Allergy/AdvReac Type Severity Reaction Status Date / Time
codeine Allergy dizzy Verified 02/05/25 17:51
losartan Allergy Anaphylaxis Verified 02/05/25 17:51
sacubitril [From Entresto] Allergy Anaphylaxis Verified 02/05/25 17:51
valsartan [From Entresto] Allergy Anaphylaxis Verified 02/05/25 17:51
Home Medications
�Medication �Instructions �Recorded �Confirmed �Last Taken �Type
albuterol sulfate 90 mcg/actuation 2 puff inhalation R Q6HPRN PRN SOB 07/31/22 02/05/25 Unknown History
aerosol inhaler
amiodarone 200 mg tablet (Pacerone) 200 mg PO DAILY Heart 05/28/23 02/05/25 11/02/23 08:00 History
Disease/Condition
carvedilol 12.5 mg tablet 12.5 mg PO BID Heart 05/28/23 02/05/25 11/02/23 17:00 History
Disease/Condition
citalopram 20 mg tablet 20 mg PO DAILY Depression 05/28/23 02/05/25 11/02/23 08:00 History
ferrous sulfate 325 mg (65 mg 325 mg PO DAILY Supplement 08/19/23 02/05/25 11/02/23 08:00 History
iron) tablet
levothyroxine 100 mcg tablet 100 mcg PO DAILY Thyroid 08/19/23 02/05/25 11/02/23 08:00 History
omeprazole 20 mg capsule,delayed 20 mg PO DAILY GERD 08/19/23 02/05/25 11/02/23 08:00 History
release
furosemide 40 mg tablet 40 mg PO BID HF 30 days #30 tabs 08/29/23 02/05/25 11/02/23 17:00 Rx
empagliflozin 10 mg tablet 10 mg PO DAILY heart failure 10/06/23 02/05/25 11/02/23 08:00 History
(Jardiance)
losartan 25 mg tablet 12.5 mg PO DAILY Blood Pressure 11/03/23 02/05/25 11/02/23 08:00 History
melatonin 3 mg tablet 6 mg PO HS Sleep 11/03/23 02/05/25 11/02/23 21:00 History
rosuvastatin 20 mg tablet 20 mg PO QPM High Cholesterol 11/03/23 02/05/25 11/02/23 17:00 History
acetaminophen 500 mg tablet (Pain 1,000 mg PO Q6HPRN PRN mild pain / 02/05/25 02/05/25 Unknown History
Relief Extra Strength fever
(acetaminophen))
budesonide-formoterol HFA 80 1 puff inhalation Q12H 02/05/25 02/05/25 Unknown History
mcg-4.5 mcg/actuation aerosol
inhaler (Symbicort)
Review of Systems
Vitals / Labs / Diagnostic Testing
Vital Signs
Temp Pulse Resp BP Pulse Ox
97.6 F 68 19 113/74 95
02/07/25 11:00 02/07/25 11:00 02/07/25 11:00 02/07/25 11:00 02/07/25 11:00
Lab Data
02/06/25 08:23
02/07/25 06:24
Diagnostic Testing:
Assessment
-
84-year-old woman presented with shortness of breath, fatigue and lightheadedness-found to have a proBNP in 5000. Past medical history noted. She was diuresed for 2 days and creatinine increased. There is reports of medical noncompliance with
diuretics.
I was consulted on 02/07/2025 for concerns of pulmonary hypertension.
Exertional dyspnea-suspect multifactorial. Mainly due to diastolic heart failure/hiatal hernia which is large
proBNP 5000
Chest x-ray: Showed large hiatal hernia. Mild cardiomegaly. Status post TAVR.
Pulmonary hypertension: Mild on most recent echocardiogram-improved compared to 2022.
Normal RV and RA on echocardiogram this admission 02/06/2025.
Recent CT angiogram 11/18/2024: Negative for pulmonary embolism.
Conditions present prior admission:
History of aortic stenosis status post TAVR
History of paroxysmal atrial fibrillation-off anticoagulation patient's own accord
Anemia
CVA status post left carotid stent
Hypertension
Hyperlipidemia
Mild intermittent asthma
Patient is a lifelong never smoker.
History of recurrent syncope
Chronic kidney disease creatinine about 1.5 at baseline.
Sick sinus syndrome status post initial permanent pacemaker placement and recently upgraded to biventricular device due to heart failure
Systolic heart failure
Small AAA
Assessment and plan:
Suspect her symptoms are multifactorial-with increased proBNP of 5000 I do suspect more related to volume overload, chronic kidney disease and diastolic dysfunction.
Patient does have mild pulmonary hypertension which is improved compared to 202.
Moreover, right ventricle and right atrium are of normal size per report. Doubt causing any significant problems at this point.
-
If she has persistent symptoms a right heart catheterization will be the best way to evaluate this. Could be deferred until the outpatient setting. As patient tells me that she is feeling better.
Agree with evaluation for obstructive sleep apnea-in the outpatient setting.
Obtaining full pulmonary function testing in the future. Patient is a lifelong non-smoker.
Most recent CT chest showed no evidence for parenchymal lung abnormalities or emphysema.
Her hemoglobin is normal this admission.
-
Her asthma symptoms are controlled and very intermittent.
Okay to continue with Symbicort for now.
Will recommend outpatient pulmonary follow-up.
-
Patient is chronically on amiodarone therapy but there is no evidence for interstitial lung disease on recent CT chest or chest x-ray.
-
Patient does report intermittent symptoms in the supine position as well as coughing intermittently including food. Suspect chronic microaspiration.
No evidence for infection on CAT scan.
She has a very large hiatal hernia which also contributes to his sectional symptoms.
-
Other component could be chronotropic insufficiency from medications including amiodarone, carvedilol, patient also has a pacemaker.
Would test ambulatory heart rate and ensure appropriate heart rate response.
-
Recommend outpatient pulmonary [id number] agreeable. Information will be left in the chart.
I recommend no interventions during this hospital stay unless symptoms are progressive.
-
Will reevaluate tomorrow and if continues to clinically improved then we will see her in the outpatient setting.

Data reviewed:
-'
CT chest 11/18/2024: Reviewed, showed no evidence for pulmonary embolism. No significant acute abnormality Denti-Foam the chest. Large hiatal hernia/left hemidiaphragm hernia with intrathoracic stomach.
-
CTA Chest: 04/17/2024: No pulmonary embolus. No acute right rib fracture. Bilateral lower lobe bronchial wall thickening. Tiny left pleural effusion. Left basilar airspace consolidation may represent atelectasis and/or pneumonia. Enlarged main
pulmonary artery which can be seen with pulmonary arterial hypertension.
-
Echocardiogram 02/06/2025:
Mild to moderate left ventricular hypertrophy. Left ventricular is small in size.
Ejection fraction 52%
Stage II diastolic dysfunction.
Trace MR.
TAVR in place. Trace aortic regurgitation.
Mild to moderate TR.
Estimated pulmonary pressure 30 mmHg.
Normal right ventricular size and function. Normal right atrium.
-
Echocardiogram 08/21/2023:
Mild to moderate reduced left ventricular systolic function.
Ejection fraction 35 to 40%.
Global hypokinesis. Mild mitral stenosis.
Severely enlarged left atrium.
Estimated pulmonary artery pressure 45 to 50 mmHg.
[2025-02-07 15:00] VITALS: BP 123/76
[2025-02-07] MEDS: ROBITUSSIN 100 MG PO (17:17)
[2025-02-07] MEDS: CRESTOR 20 MG PO (17:17)
[2025-02-07] MEDS: VENTOLIN NEBULES 2.5 MG INH (19:41)
[2025-02-07 19:44] VITALS: BP 117/77
[2025-02-07] MEDS: MELATONIN 6 MG PO (21:40)
[2025-02-07 23:06] VITALS: BP 87/56
[2025-02-08] MEDS: ROBITUSSIN 100 MG PO (00:18)
[2025-02-08 02:00] VITALS: BP 146/74
[2025-02-08 05:18] VITALS: BMI 22.1
[2025-02-08] MEDS: SYNTHROID 100 MCG PO (05:33)
[2025-02-08 07:25] VITALS: BP 144/82
[2025-02-08] MEDS: SYMBICORT 80/4.5 MCG INHALER 1 PUFF INH (08:20)
[2025-02-08 08:23] LABS: Blood Urea Nitrogen 46 mg/dl (7-17); Calcium 8.9 mg/dl (8.4-10.2); Carbon Dioxide 25 mmol/L (22-30); Chloride 105 mmol/L (98-107); Estimated Creatinine Clearance 18 ml/min; Glucose 109 mg/dl (70-99); Potassium 4.3 mmol/L (3.5-5.1); Sodium 139 mmol/L (135-145); eGFR 29.57
[2025-02-08] MEDS: FARXIGA 10 MG PO (10:01)
[2025-02-08] MEDS: FEOSOL 325 MG PO (10:01)
[2025-02-08] MEDS: PACERONE 200 MG PO (10:02)
[2025-02-08] MEDS: COREG 12.5 MG PO (10:02)
[2025-02-08] MEDS: CELEXA 20 MG PO (10:02)
[2025-02-08] MEDS: PROTONIX 40 MG PO (10:03)
--- NOTE | 2025-02-08 10:22 | W.PN.CARDCBS ---
Addendum entered and electronically signed by Abundio Hardin MD 02/08/25 13:39:
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 Today she feels that she is ready to go home, is not experiencing significant dyspnea, says 'she holds her fluid up high'. She says that at times she has difficulty remembering her
medicines. No distress today, very pleasant and pleasant. States she feels better today. Losartan and furosemide are on hold.
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
Current meds: Carvedilol 12.5 twice daily, citalopram 20 mg a day, iron, Depakote with his own 10 mg a day, Synthroid 100 mcg daily, pantoprazole 40 mg a day, amiodarone 200 mg a day, rosuvastatin 20 mg daily, Symbicort, furosemide 40 mg IV twice
daily, on hold, losartan 12.5 mg daily, also on hold outpatient furosemide was 40 mg twice daily
132/82, pulse 70, weight is 51.4 kg, down 0.35 kg, pleasant, awaken from sleep, diminished breath sounds but clear, JVD okay, systolic murmur, unchanged, no significant edema
BUN/creatinine are 46 and 1.7, which is close to baseline, creatinine was 1.8
Echo EF: 52%, trace mitral regurgitation, TAVR gradients are 30 and 18, pulmonary artery pressure is 33, EF had been 35-40% in 2022
Impression: See assessment below by man with back
Agree with assessments, findings and recommendations of various back
Plan:
Volume status seems reasonable, and she is comfortable. Suspect this admission may have been caused in part by unintentional noncompliance with medical regimen.
Her creatinine kwabena with IV furosemide, now is approaching baseline. Best approach may be to resume her previous outpatient dose of furosemide 40 mg twice daily stressing compliance.
Her EF is normal, and for now would discharge without losartan, consider restart as outpatient.
Recommended cardiac meds at discharge:
Carvedilol 12.5 twice daily
Amiodarone 200 mg daily
Furosemide 40 mg twice daily
Jardiance 10 mg a day
Rosuvastatin 20 mg a day
Hold losartan for now
Follow-up BMP 1 week
Follow-up to Dr. Carballo
Original Note:
Today's Communication / Plan
-
Holding Lasix and losartan. Follow creatinine
Check ambulatory pulse ox
Will arrange outpatient cardiac follow-up
Impression / Plan
-
Primary Financial Data Analyst: Dr. Almazan
Assessment:
Presentation with shortness of breath
Acute on chronic heart failure with improved EF
Chronic severe pulmonary hypertension noted on chest x-ray
History of nonischemic cardiomyopathy
s/p TAVR
Syncope secondary to sick sinus syndrome status post pacemaker placement with subsequent upgrade to BiV device
CKD
Chronic left bundle branch block
Hypertension
Hyperlipidemia
PAF
Not felt to be OAC candidate given 'excessive fall risk'
PVD
COPD/asthma
CVD status post left carotid stent
History of stroke
iron deficiency anemia
GERD
Hypothyroidism
Hiatal hernia
Unintentional medication noncompliance
Echo 08/21/2023: EF 35 to 40%, global hypokinesis, mild concentric LVH, mild mitral stenosis with mean gradient 5 mmHg, mild MR, severely enlarged left atrium, status post TAVR with peak/mean gradients 27/15 mmHg, no AR, mild to moderate TR, PAP
45-50, small PFO
ECHO 09/04/24: EF 60%, grade 2 diastolic dysfunction, severe left atrial dilation, mild MS due to heavy MAC and moderate pulmonary hypertension with RVSP 49 mmHg, transaortic gradient was 13 mmHg
ECHO 02/07/25: EF 52%, mild to moderate LVH with septum measuring 1.5 cm, stage II diastolic dysfunction, dense MAC, trace MR, TAVR with peak/mean gradients 30/18 mmHg, trace AR seen, mild to moderate TR, PAP 33 mmHg
Plan:
-She reports overall feeling better, however states she remains with some shortness of breath at times
- There was initial concern for heart failure as etiology of her symptoms, however had RUEL with diuresis. Creatinine trending back down to 1.7. Holding Lasix and losartan at this time, was on p.o. Lasix 40 mg twice daily prior to admission
- Echo with results as above, EF preserved, TAVR well-seated
- Appreciate pulmonary input
- Agree that symptoms likely multifactorial. She has large hiatal hernia as well as some degree of pulmonary hypertension. Also concern for chronic microaspiration. Check ambulatory pulse ox
- Right heart cath may be of benefit as outpatient if etiology of symptoms remains unclear
- Urinalysis unremarkable aside from 3+ glucose in urine, however patient on SGLT2 inhibitor. She reports some flank/'kidney' pain. Consider imaging per primary service
- She also notes history of iron deficiency anemia, however hemoglobin has been stable this admission
- Trops negative
- outpatient cardiomyopathy regimen of losartan, Jardiance, carvedilol, resume losartan as kidney function allows
- She is in apaced rhythm on amiodarone 200 mg daily. Device functioning appropriately by interrogation, without afib episodes. Not anticoagulated due to 'excessive fall risk.' continue to monitor burden through device
- Also snores. Consider outpatient sleep apnea eval
- Will arrange outpatient cardiac follow-up
- Discussed with nursing
Progress Note - Financial Data Analyst
Subjective
Date of Service: February 08, 2025
Reports overall improved, however remains with some episodes of shortness of breath, which do not always correlate to exertion
Objective
Labs:
02/06/25 08:23
02/08/25 06:31
Labs
Hgb 13.7 g/dL (12.0-16.0) 02/06/25 08:23
Hct 40.8 % (37.0-47.0) 02/06/25 08:23
Plt Count 157 10^3/uL (130-400) 02/06/25 08:23
Sodium 139 mmol/L (135-145) 02/08/25 06:31
Potassium 4.3 mmol/L (3.5-5.1) 02/08/25 06:31
BUN 46 mg/dl (7-17) H 02/08/25 06:31
Creatinine 1.7 mg/dL (0.6-1.0) H 02/08/25 06:31
Glucose 109 mg/dl (70-99) H 02/08/25 06:31
Troponins
02/05/25 02/06/25 02/06/25
18:00 01:31 08:23
Troponin I < 0.012 < 0.012 < 0.012
Vital Signs and I&O:
Vital Signs
Temp Pulse Resp BP Pulse Ox
97.7 F 61 16 144/82 96
02/08/25 07:25 02/08/25 10:02 02/08/25 08:22 02/08/25 10:02 02/08/25 08:22
Vital Signs
Temp Pulse Resp BP Pulse Ox
97.7 F 61 16 144/82 96
02/08/25 07:25 02/08/25 10:02 02/08/25 08:22 02/08/25 10:02 02/08/25 08:22
Intake & Output
02/06/25 02/07/25 02/08/25 02/09/25
07:59 07:59 07:59 07:59
Intake Total 720 / 720 550 / 550
Output Total 200 / 200
Balance 520 / 520 550 / 550
Physical Exam
Physical Exam
GEN: No distress, awake, alert, oriented x3
HEENT: supple, anicteric, mmm, EOMI
LUNGS: CTA bilaterally, no wheezes/rales
CV: Reg, S1/S2, 1/6 syst LSB
ABD: soft, BS+, NT/ND
EXT: No cyanosis, clubbing, edema
NEURO: Gross non-focal
SKIN: Warm, pink, dry. No rash
[2025-02-08 10:37] VITALS: BP 132/82
--- NOTE | 2025-02-08 11:59 | W.PN.PUL3 ---
Today's Communication / Plan
-
- Recommend out patient follow up with Pulmonary Clinic for PFTs and 6 min walk test
Assessment
-
84-year-old woman presented with shortness of breath, fatigue and lightheadedness-found to have a proBNP in 5000. Past medical history noted. She was diuresed for 2 days and creatinine increased. There is reports of medical noncompliance with
diuretics.
I was consulted on 02/07/2025 for concerns of pulmonary hypertension.
Exertional dyspnea-suspect multifactorial. Mainly due to diastolic heart failure/hiatal hernia which is large
proBNP 5000
Chest x-ray: Showed large hiatal hernia. Mild cardiomegaly. Status post TAVR.
Pulmonary hypertension: Mild on most recent echocardiogram-improved compared to 2022.
Normal RV and RA on echocardiogram this admission 02/06/2025.
Recent CT angiogram 11/18/2024: Negative for pulmonary embolism.
Conditions present prior admission:
History of aortic stenosis status post TAVR
History of paroxysmal atrial fibrillation-off anticoagulation patient's own accord
Anemia
CVA status post left carotid stent
Hypertension
Hyperlipidemia
Mild intermittent asthma
Patient is a lifelong never smoker.
History of recurrent syncope
Chronic kidney disease creatinine about 1.5 at baseline.
Sick sinus syndrome status post initial permanent pacemaker placement and recently upgraded to biventricular device due to heart failure
Systolic heart failure
Small AAA
Assessment and plan:
Suspect her symptoms are multifactorial-with increased proBNP of 5000 I do suspect more related to volume overload, chronic kidney disease and diastolic dysfunction.
Patient does have mild pulmonary hypertension which is improved compared to 2022.
Moreover, right ventricle and right atrium are of normal size per report. Doubt causing any significant problems at this point.
-
If she has persistent symptoms a right heart catheterization will be the best way to evaluate this. Could be deferred until the outpatient setting. As patient tells me that she is feeling better.
Agree with evaluation for obstructive sleep apnea-in the outpatient setting.
Obtaining full pulmonary function testing in the future. Patient is a lifelong non-smoker.
Most recent CT chest showed no evidence for parenchymal lung abnormalities or emphysema.
Her hemoglobin is normal this admission.
-
Her asthma symptoms are controlled and very intermittent.
Okay to continue with Symbicort for now.
Will recommend outpatient pulmonary follow-up.
-
Patient is chronically on amiodarone therapy but there is no evidence for interstitial lung disease on recent CT chest or chest x-ray.
-
Patient does report intermittent symptoms in the supine position as well as coughing intermittently including food. Suspect chronic microaspiration.
No evidence for infection on CAT scan.
She has a very large hiatal hernia which also contributes to his sectional symptoms.
Counseled to eat in upright position only and avoid lying down for 3 hours after eating. I suspect her symptoms are partly from large hiatal hernia and regurgitation.
Pulmonary team will sign off.

Data reviewed:
-'
CT chest 11/18/2024: Reviewed, showed no evidence for pulmonary embolism. No significant acute abnormality Denti-Foam the chest. Large hiatal hernia/left hemidiaphragm hernia with intrathoracic stomach.
-
CTA Chest: 04/17/2024: No pulmonary embolus. No acute right rib fracture. Bilateral lower lobe bronchial wall thickening. Tiny left pleural effusion. Left basilar airspace consolidation may represent atelectasis and/or pneumonia. Enlarged main
pulmonary artery which can be seen with pulmonary arterial hypertension.
-
Echocardiogram 02/06/2025:
Mild to moderate left ventricular hypertrophy. Left ventricular is small in size.
Ejection fraction 52%
Stage II diastolic dysfunction.
Trace MR.
TAVR in place. Trace aortic regurgitation.
Mild to moderate TR.
Estimated pulmonary pressure 30 mmHg.
Normal right ventricular size and function. Normal right atrium.
-
Echocardiogram 08/21/2023:
Mild to moderate reduced left ventricular systolic function.
Ejection fraction 35 to 40%.
Global hypokinesis. Mild mitral stenosis.
Severely enlarged left atrium.
Estimated pulmonary artery pressure 45 to 50 mmHg.
Subjective Data
-
Date of Service:
Date of Service: February 08, 2025
Subjective:
Patient comfortably sitting in bed, no acute distress
Review of Systems
Genitourinary: Other (No new symptoms reported. )
Objective Data
Data Reviewed
Vital Signs / I&O / Oxygen:
Vital Signs
Temp Pulse Resp BP Pulse Ox
98.7 F 70 18 132/82 94
02/08/25 10:37 02/08/25 10:37 02/08/25 10:37 02/08/25 10:37 02/08/25 10:37
Intake and Output
02/07/25 02/08/25 02/09/25
06:59 06:59 06:59
Intake Total 720 / 720 550 / 550
Output Total 200 / 200
Balance 520 / 520 550 / 550
SaO2 94
Physical Exam
General: Comfortable
HEENT: Normocephalic
Cardiovascular: S1-S2
Respiratory: Clear
GI: Soft and Non Distended
Neurology: Awake and Alert
Skin: Warm
Labs/Micro/Reports
Lab Data
02/06/25 08:23
02/08/25 06:31
--- NOTE | 2025-02-08 14:29 | W.DCSUMMARY ---
Discharge Summary
Discharge Data
Date of Admission: 02/05/25
Date of Discharge: 02/08/25
-
Pending Results: No
Hospital Course
Ms. Calhoun is an 84-year-old female with a medical history of HFrEF, paroxysmal A-fib, COPD, CKD stage III, aortic stenosis (status post TAVR), pulmonary hypertension, and hypothyroidism who presented with cough, shortness of breath, and chest
pain that have been ongoing for about a week prior to arrival. She also reported mild lower extremity edema. She was not sure if she had gained any weight. She was admitted for further evaluation and management of suspected acute on chronic HFrEF.
She diuresed appropriately but developed RUEL on CKD at which point diuresis and ARB were held. She was evaluated by pulmonology for possible pulmonary hypertension contribution to her presenting symptoms. Based on history, exam, and repeat
echocardiogram it did not appear that pulmonary hypertension was a significant contributing factor to her presentation, and in fact her pulmonary hypertension seems slightly improved compared to previous. However, it is very likely that the cause
of her presenting symptoms is complications from her very large hiatal hernia. Her symptoms are exacerbated by laying flat which results in productive cough occasionally with expectorated food particles. She can manage her symptoms by eating
smaller meals more frequently and remaining in an upright position for at least 60 minutes after eating. She should continue taking her home omeprazole for acid suppression. She will also need GI follow-up and possible thoracic surgery evaluation
for hiatal hernia repair. She will need outpatient pulmonology follow-up for pulmonary function testing.
She had no evidence of acute infection clinically, on lab work, or on chest imaging. Chest x-ray did show chronic peripheral endobronchial infection of her right middle lobe. Would recommend Mucinex/Robitussin and pulmonology follow-up for
monitoring. She was evaluated for home oxygen needs and found to not require supplemental oxygen.
She will be discharged to home. She should hold her home losartan and Lasix until Friday 02/09, at which point she can resume her home losartan dose of 12.5 mg daily and should restart Lasix at reduced dose of 40 mg daily (instead of twice daily).
She will need repeat lab work in 2 to 3 days to monitor her kidney function. She should continue monitoring her blood pressure regularly. She will need close follow-up with her primary care physician, cardiology, GI, and pulmonology.
General: No Apparent Distress, Comfortable and Conversant
HEENT: NormoCephalic, Moist mucous membranes, Atraumatic
Respiratory: No wheezing or rhonchi, no increased work of breathing
Cardiac: S1/S2 and Regular Rhythm; No Rub or Gallop
GI: Soft, Non Tender, Non Distended and Normal Bowel Sounds
Musculoskeletal: No Edema, no deformity
Skin: Warm and dry
: NO Allen
Neuro: Awake, Alert, Nonfocal/grossly intact
Psych: Calm and Intact Judgment/Insight
More than 30 minutes spent in discharge including
Final examination of the patient
Summarizing hospital stay
Instructions for continuing care to all relevant caregivers
Preparation of discharge records, prescriptions, and referral forms
Total time spent (in minutes): 55
Discharge Plan
-
Patient Disposition: Home (Routine Discharge)
Discharge Diagnosis/Procedures: Chest pain and shortness of breath, cough, likely related to very large hiatal hernia
Diet: 2 Gram Sodium, Restrict fluids to 64 oz and Other diet
Additional Diets: Multiple small meals, sit upright for at least an hour after eating
Activity: As tolerated
Specialty Instructions: Weigh Daily- Call MD for wt gain/loss 3 lbs overnight/5 lbs in 1 week
Activity Restrictions/Additional Instructions:
Ms. Calhoun is an 84-year-old female with a medical history of HFrEF, paroxysmal A-fib, COPD, CKD stage III, aortic stenosis (status post TAVR), pulmonary hypertension, and hypothyroidism who presented with cough, shortness of breath, and chest
pain that have been ongoing for about a week prior to arrival. She also reported mild lower extremity edema. She was not sure if she had gained any weight. She was admitted for further evaluation and management of suspected acute on chronic HFrEF.
She diuresed appropriately but developed RUEL on CKD at which point diuresis and ARB were held. She was evaluated by pulmonology for possible pulmonary hypertension contribution to her presenting symptoms. Based on history, exam, and repeat
echocardiogram it did not appear that pulmonary hypertension was a significant contributing factor to her presentation, and in fact her pulmonary hypertension seems slightly improved compared to previous. However, it is very likely that the cause
of her presenting symptoms is complications from her very large hiatal hernia. Her symptoms are exacerbated by laying flat which results in productive cough occasionally with expectorated food particles. She can manage her symptoms by eating
smaller meals more frequently and remaining in an upright position for at least 60 minutes after eating. She should continue taking her home omeprazole for acid suppression. She will also need GI follow-up and possible thoracic surgery evaluation
for hiatal hernia repair. She will need outpatient pulmonology follow-up for pulmonary function testing.
She had no evidence of acute infection clinically, on lab work, or on chest imaging. Chest x-ray did show chronic peripheral endobronchial infection of her right middle lobe. Would recommend Mucinex/Robitussin and pulmonology follow-up for
monitoring. She was evaluated for home oxygen needs and found to not require supplemental oxygen.
She will be discharged to home. She should hold her home losartan and Lasix until Friday 02/09, at which point she can resume her home losartan dose of 12.5 mg daily and should restart Lasix at reduced dose of 40 mg daily (instead of twice daily).
She will need repeat lab work in 2 to 3 days to monitor her kidney function. She should continue monitoring her blood pressure regularly. She will need close follow-up with her primary care physician, cardiology, GI, and pulmonology.
Instructions: *[facility] Heart Failure Instructions
Referrals:
Abram Dillard MD [Active] - in three to four weeks (PFT/6MWT)
Lisa Beth DO [Family Provider] -
Cesario Almazan MD [Active] - in one week (Please call for appointment. )
Prescriptions:
Continued
albuterol sulfate 90 mcg/actuation Hfa Aerosol Inhaler
2 puff INHALATION R Q6HPRN PRN (Reason: SOB)
carvedilol 12.5 mg tablet
12.5 mg PO BID
amiodarone [Pacerone] 200 mg tablet
200 mg PO DAILY
citalopram 20 mg Tablet
20 mg PO DAILY
levothyroxine 100 mcg tablet
100 mcg PO DAILY
ferrous sulfate 325 mg (65 mg iron) tablet
325 mg PO DAILY
omeprazole 20 mg Capsule,Delayed Release(Dr/Ec)
20 mg PO DAILY
Jardiance 10 mg Tablet
10 mg PO DAILY
losartan 25 mg Tablet
12.5 mg PO DAILY
rosuvastatin 20 mg Tablet
20 mg PO QPM
melatonin 3 mg Tablet
6 mg PO HS
budesonide-formoterol [Symbicort] 80-4.5 mcg/actuation Hfa Aerosol Inhaler
1 puff INHALATION Q12H
acetaminophen [Pain Relief ES (acetaminophen)] 500 mg tablet
1,000 mg PO Q6HPRN PRN (Reason: mild pain / fever)
Changed
furosemide 40 mg Tablet
40 mg PO DAILY 30 Days Qty: 30 2RF
Discharge Orders:
Discharge Patient (As Directed); Ordered 02/08/25
Ordered By: Tang Viramontes
Discharge Date and Time
Print Language: BELGIAN
[2025-02-08 15:15] VITALS: BP 109/62
--- NOTE | 2025-02-08 16:11 | CM ---
CM reviewed chart, patient seen bedside, for discharge today. IMM verbally reviewed with patient, provided with copy, placed in chart. Patient reports she lives alone and requesting VN- has hx with [facility], will place referral in [facility].
Patient reports her daughter will provide transportation home. CM will continue to follow for all discharge planning needs.
Plan; home with referral to [facility]
--- NOTE | 2025-02-10 11:09 | W.HF.CON ---
Heart Failure
- LV Function
Left ventricular function study result: LV Ejection fraction >/= 50%
Ejection Fraction Percentage: 52
- ARNI
Patient already on ARNI: No
Heart Failure ARNI Not Indicated: LV Ejection Fraction >/= 40%
- ACEI/ARB
Patient already on ACEI/ARB: Yes
- Beta Jessica
Patient already on Evidence Based Beta Jessica: Yes
- Mineralocorticord Receptor Antagonist
Patient already on MRA: No
Heart Failure MRA Not Indicated: LV Ejection Fraction > 40%
- SGLT-2 Inhibitor
Patient already on SGLT-2 Inhibitor: Yes
- Afib Anticoagulation
Patient already on Anticoagulation for Afib: No
Heart Failure Afib Anticoagulation Contraindication: History of Falls
- NYHA CHF Classification
NYHA CHF Classification Level: Class III - Symptoms w/ min exertion, interferes w/ nml daily activity
- ACC/AHA Stage
ACC/AHA Stage: Stage C: Symptomatic Heart Failure
== END 2025-02-08 17:50 | disposition home health service (06) | DRG 291 ==
LOC: 4 WEST ACU 23:30
PROVIDERS: Emergency Medicine; Physician Assistant; Physician Assistant Medical; ADMITTING PHYSICIAN Hospitalist; ATTENDING PHYSICIAN Internal Medicine; CONSULT PHYSICIAN Internal Medicine Critical Care Medicine; EMERGENCY PHYSICIAN Emergency Medicine; FAMILY PHYSICIAN Internal Medicine; OTHER PHYSICIAN Internal Medicine Cardiovascular Disease
DX: I13.0 Hypertensive heart and chronic kidney disease with heart failure and stage 1 through stage 4 chronic kidney disease, or unspecified chronic kidney disease (principal); I50.23 Acute on chronic systolic (congestive) heart failure; N17.9 Acute kidney failure, unspecified; I48.0 Paroxysmal atrial fibrillation; D50.9 Iron deficiency anemia, unspecified; F41.9 Anxiety disorder, unspecified; F32.A Depression, unspecified; N18.30 Chronic kidney disease, stage 3 unspecified; K21.9 Gastro-esophageal reflux disease without esophagitis; E03.9 Hypothyroidism, unspecified; E78.00 Pure hypercholesterolemia, unspecified; J44.9 Chronic obstructive pulmonary disease, unspecified; I49.5 Sick sinus syndrome; J45.20 Mild intermittent asthma, uncomplicated; K44.9 Diaphragmatic hernia without obstruction or gangrene; Z79.899 Other long term (current) drug therapy; Z91.148 Patient's other noncompliance with medication regimen for other reason; Z95.2 Presence of prosthetic heart valve; Z95.810 Presence of automatic (implantable) cardiac defibrillator; Z95.5 Presence of coronary angioplasty implant and graft; Z86.73 Personal history of transient ischemic attack (TIA), and cerebral infarction without residual deficits; Z86.15 Personal history of latent tuberculosis infection
CPT/HCPCS: 71046; 80048; 80053; 80061; 81003; 83735; 83880; 84443; 84484; 85025; 85027; 93005; 93306; 94640; 96374; 99285

== ENCOUNTER 2025-05-11 03:40 | Inpatient (IN) | payer OTHER, SELFPAY ==
[2025-05-10 22:29] VITALS: BP 151/86; BMI 23.9
--- NOTE | 2025-05-10 22:51 | ED.GENMED ---
History of Present Illness
General
Chief Complaint: Numbness
Source: patient
Exam Limitations: none
Time Seen by Provider: 05/10/25 22:31
History of Present Illness
History of Present Illness:
84-year-old female with history of heart failure with reduced ejection fraction, paroxysmal A-fib, COPD CKD presents complaining of some shortness of breath, cough and intermittent numbness to the left fingers and toes starting more than 24 hours
ago. She denies a headache or fever. no vomiting. Lives at home by herself. She states it feels like she has fluid around her heart again. No other complaints at this time.
Past History
Past History
ED Past Medical History: Arrthythmia, CAD (Nonobstructive), CHF and HTN
ED Past Surgical History: Cardiac (Pacemaker)
Social History
Tobacco: Non-smoker
Alcohol: Occasional
Drug: None
Personal:
Living: with family
Employment: Retired
Phy Exam
Physical Exam
Physical Exam:
General: Well-appearing female no acute respiratory distress
HEENT: Normocephalic atraumatic face is symmetric
Heart: Regular rate and rhythm
Lungs: Rales at the bases
Abdomen is soft nontender
Extremities: No cyanosis, mild edema bilateral lower extremities
Skin warm no rash
Course
Orders/Labs/Results
Orders:
Orders
05/10/25 22:44
Electrocardiogram (*1) Urgent
Reason for Study: Chest Pain
EKG- Treatment ONCE
05/10/25 22:45
CT Head W/o Iv Contrast Urgent
Comment:
Reason For Exam: left sided numbness
CR Chest - 2 Views Urgent
Comment:
Reason For Exam: cough
05/10/25 22:50
Basic Metabolic Panel Urgent
Complete Blood Count/With Diff Urgent
NT-proBNP Urgent
Troponin I Urgent
05/11/25 00:41
Aspirin Chewable [Low Strength Aspirin] 81 mg PO NOW STA
Abnormal Lab Results
05/10/25
22:50
Absolute Lymphs (auto) 1.0 L 10^3/uL
(1.2-3.4)
Monocytes % 10.8 H %
(1.7-9.3)
BUN 39 H mg/dl
(7-17)
Creatinine 1.7 H mg/dL
(0.6-1.0)
Glucose 105 H mg/dl
(70-99)
05/10/25 22:50
05/10/25 22:50
Vital Signs
Initial and Last Documented VS:
Initial Vital Signs
BP
151/86
05/10/25 22:29
Last Documented Vital Signs
Temp Pulse Resp BP Pulse Ox
98.7 F 66 22 155/97 96
05/10/25 22:30 05/11/25 00:00 05/11/25 00:00 05/10/25 23:00 05/11/25 00:00
MDM/Problems Addressed
Differential Diagnosis Includes:
Patient numbness and weakness to the left hand and foot as well as cough and occasional shortness of breath. Intermittent symptoms over several days.
Initiate workup with labs CT of head and EKG
*Pulse Oximetry
SaO2: 96
Oxygen Mode of Delivery: Room air
Patient hypoxic: no
*Critical Care Note
Total Time (30-74mins, 75-104mins- exclusive of procedures): Not Applicable
Update Note
Update Note:
CT of head shows subacute stroke in the right parietal region which would be consistent with the patient's left-sided symptoms. Chest x-ray without significant cardiomegaly or pulmonary edema or effusion. Not hypoxic. BNP slightly elevated.
Discussed with emergency room attending. Ordered baby aspirin. Notified admitting team as well as neurology. Admit for further stroke workup. She is not a TNK candidate secondary to the duration of symptoms and low stroke score.
ED Attending Note
-
Portions of this chart may have been created with voice recognition software.� Occasional wrong word or��sound alike� substitutions may have occurred due to the inherent limitations of voice recognition software.
Discharge Plan
Departure
Patient Disposition: Admit
Date of Disposition: 05/11/25
Time of Disposition: 00:46
Presentation/result/management discussed w/ accepting MD/DO: Hospitalist
Discharge Problem:
subacute stroke
Prescriptions:
No Action
albuterol sulfate 90 mcg/actuation Hfa Aerosol Inhaler
2 puff INHALATION R Q6HPRN PRN (Reason: SOB)
carvedilol 12.5 mg tablet
12.5 mg PO BID
amiodarone [Pacerone] 200 mg tablet
200 mg PO DAILY
citalopram 20 mg Tablet
20 mg PO DAILY
levothyroxine 100 mcg tablet
100 mcg PO DAILY
ferrous sulfate 325 mg (65 mg iron) tablet
325 mg PO DAILY
omeprazole 20 mg Capsule,Delayed Release(Dr/Ec)
20 mg PO DAILY
Jardiance 10 mg Tablet
10 mg PO DAILY
losartan 25 mg Tablet
12.5 mg PO DAILY
rosuvastatin 20 mg Tablet
20 mg PO QPM
melatonin 3 mg Tablet
6 mg PO HS
budesonide-formoterol [Symbicort] 80-4.5 mcg/actuation Hfa Aerosol Inhaler
1 puff INHALATION Q12H
acetaminophen [Pain Relief ES (acetaminophen)] 500 mg tablet
1,000 mg PO Q6HPRN PRN (Reason: mild pain / fever)
furosemide 40 mg Tablet
40 mg PO DAILY 30 Days Qty: 30 2RF
Referrals:
UNKNOWN - PT DOES,NOT KNOW [Unknown Provider]
Interventions
Interventions:
*Risk Screen - Suicide Last Done: 05/10/25 22:30
*General Assessment Last Done: 05/10/25 22:30
*Neglect/Abuse Screening Last Done: 05/10/25 22:30
*ED- Fall Risk Assessment Last Done: 05/10/25 22:30
*ED COVID-19 Vaccine History Last Done: 05/10/25 22:30
ED- Neurological Assessment Last Done: 05/10/25 22:46
Discharge Date and Time
Print Language: TURKMEN
[2025-05-10 23:00] VITALS: BP 155/97
[2025-05-10 23:04] LABS: Hematocrit 37.7 % (37.0-47.0); Hemoglobin 12.7 g/dL (12.0-16.0); Mean Corp Hgb Conc. 33.7 g/dL (33.0-37.0); Mean Corpuscular Volume 88.5 fL (81.0-99.0); Nucleated Red Blood Cells % 0 %; Platelet Count 144 10^3/uL (130-400); Red Cell Dist. Width 14.1 % (11.5-14.5)
[2025-05-10 23:22] LABS: Blood Urea Nitrogen 39 mg/dl (7-17); Calcium 9.6 mg/dl (8.4-10.2); Carbon Dioxide 24 mmol/L (22-30); Chloride 106 mmol/L (98-107); Estimated Creatinine Clearance 18 ml/min; Glucose 105 mg/dl (70-99); Sodium 136 mmol/L (135-145); eGFR 29.57
[2025-05-10 23:23] LABS: Troponin I < 0.012 ng/ml
[2025-05-11] VITALS (13 sets, daily range): BP systolic 113–183; BP diastolic 68–97; PULSE 66; O2SAT 97; BMI 22.7
[2025-05-11] MEDS: LOW STRENGTH ASPIRIN 81 MG PO ×2 (00:53→07:39)
--- NOTE | 2025-05-11 03:20 | HPS.HSE ---
Family Physician
-
Family Physician: Lisa Beth
Chief Complaint
-
Cough, SOB, L numbness
History of Present Illness
Patient is an 84y F with PMH significant for ASCVD, CHF and CKD who presents to ED complaining of cough and shortness of breath as well as L sided numbness. Patient states that she has been having intermittent numbness in the L fingers and toes
with 'stiffness' and loss of mobility specifically in the fingers. These symptoms have occurred off-and-on over the past 1 1/2 weeks. No headache, vision changes, speech changes. About 4-6 days ago, patient lost her balance and fell backwards -
striking her head on the floor. She denies any LOC. She was able to get up and did not seek medical attention at that time. She has had issues with frequent falls over the past several months. She is not on OAC for her A-Fib due to her frequent
falls.
This evening, patient felt 'fluid around my heart'. She states that she has been having cough for 24 hours and increased SOB / chest discomfort.
This is why she presented to the ED this evening. She does note that the numbness in the L hand and foot have continued - intermittently.
Medical History
Past Medical History
Past Medical History: Reports Other
Additional Past Medical History:
ASCVD s/p Cardiac Stents and Left Carotid Stents
Chronic HFrEF
Cerebral Aneurysm
AAA
Aortic Stenosis s/p TAVR
Mitral Regurgitation
Non-Sustained VT
Sick Sinus Syndrome
Paroxysmal Atrial Fibrillation
Cardioembolic CVA
Essential Hypertension
Hyperlipidemia
CKD Stage III
COPD
Hypothyroidism
GERD / Hiatal Hernia
Anxiety / Depression
Past Surgical History: Reports Other
Additional Past Surgical History:
Left Carotid Artery Stent
TAVR
PPM Placement
Tubal Ligation
Cataracts
Social History
Tobacco: Non-smoker
Alcohol: Occasional
Drug: None
Family History
Family History: Not pertinent
Allergies / Home Medications
Allergies reflects when Allergies were last updated in [facility].
Home Medications with original date entered in [facility]
Allergy/Medication List:
Allergies
Allergy/AdvReac Type Severity Reaction Status Date / Time
codeine Allergy dizzy Verified 02/05/25 17:51
losartan Allergy Anaphylaxis Verified 02/05/25 17:51
sacubitril (From Entresto) Allergy Anaphylaxis Verified 02/05/25 17:51
valsartan (From Entresto) Allergy Anaphylaxis Verified 02/05/25 17:51
Home Medications
albuterol sulfate 90 mcg/actuation aerosol inhaler 2 puff inhalation R Q6HPRN PRN SOB 07/31/22
amiodarone 200 mg tablet (Pacerone) 200 mg PO DAILY Heart Disease/Condition 05/28/23
carvedilol 12.5 mg tablet 12.5 mg PO BID Heart Disease/Condition 05/28/23
citalopram 20 mg tablet 20 mg PO DAILY Depression 05/28/23
ferrous sulfate 325 mg (65 mg iron) tablet 325 mg PO DAILY Supplement 08/19/23
levothyroxine 100 mcg tablet 100 mcg PO DAILY Thyroid 08/19/23
omeprazole 20 mg capsule,delayed release 20 mg PO DAILY GERD 08/19/23
empagliflozin 10 mg tablet (Jardiance) 10 mg PO DAILY heart failure 10/06/23
losartan 25 mg tablet 12.5 mg PO DAILY Blood Pressure 11/03/23
melatonin 3 mg tablet 6 mg PO HS Sleep 11/03/23
rosuvastatin 20 mg tablet 20 mg PO QPM High Cholesterol 11/03/23
acetaminophen 500 mg tablet (Pain Relief Extra Strength (acetaminophen)) 1,000 mg PO Q6HPRN PRN mild pain / fever 02/05/25
budesonide-formoterol HFA 80 mcg-4.5 mcg/actuation aerosol inhaler (Symbicort) 1 puff inhalation Q12H 02/05/25
furosemide 40 mg tablet 40 mg PO DAILY HF 30 days #30 tabs 02/08/25
Review of Systems
-
History Source: Patient
A 12 point ROS was completed and negative except as noted: Yes
Constitutional: Denies Fever or Chills
Respiratory: Reports Cough and Trouble Breathing
Cardiac: Reports Chest Pain; Denies Diaphoresis, Palpitations or Syncope
Abdomen/GI: Denies Abdominal Pain, Nausea, Vomiting or Diarrhea
: Denies Dysuria, Frequency or Flank Pain
Musculoskeletal: Denies Joint Pain or Edema
Neurological: Reports Numbness; Denies Dizzy or Headache
Psych: Denies Depression or Anxiety
Physical Exam
Vital Signs
Vital Signs
Temp Pulse Resp BP Pulse Ox
98.7 F 66 22 155/97 96
05/10/25 22:30 05/11/25 00:00 05/11/25 00:00 05/10/25 23:00 05/11/25 00:00
Physical Exam
General: Other (84y F in no acute distress.)
HEENT: Moist mucous membranes and PERRLA
Respiratory: Other (Bilateral rales about 1/2 up.)
Cardiac: S1/S2, Regular Rhythm and Murmur (II/ HAILEY)
GI: Soft, Non Tender, Non Distended and Normal Bowel Sounds
Musculoskeletal: No Clubbing, No Cyanosis and No Edema
Neuro: AO x 3 and Other (Mild L sided weakness in the LUE > LLE.)
Laboratory Results
-
05/10/25 22:50
05/10/25 22:50
Laboratory Results
Total Bilirubin Cancelled 05/10/25 22:50
AST Cancelled 05/10/25 22:50
ALT Cancelled 05/10/25 22:50
Alkaline Phosphatase Cancelled 05/10/25 22:50
Troponin I < 0.012 ng/ml 05/10/25 22:50
Impression/Plan
-
A/P: Patient is an 84y F with PMH significant for ASCVD, CHF and CKD who presents to ED complaining of cough, SOB and left sided numbness.
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
- Admit for further evaluation and treatment.
- Patient reports increased dyspnea, cough and chest tightness - consistent with prior episodes of CHF.
- BNP and BP elevated in the ED. Pos rales on exam.
- IV Lasix daily for now.
- Follow I/Os, daily weights, etc.
- Echo done in January showed recovered EF now at 52%.
- Follow for clinical improvement.
Subacute CVA
ASCVD
History of Cardioembolic CVA
- Patient with intermittent L sided numbness and appreciable weakness on exam.
- CT in the ED shows R parieto-occipital CVA.
- Not on OAC given fall risk (and did have fall with head injury recently).
- ASA 81mg daily for now.
- MRI in AM.
- PT / OT evaluations.
- Neuro evaluation for additional recommendations.
Paroxysmal Atrial Fibrillation
Non-Sustained VT
SSS s/p PPM
Aortic Stenosis s/p TAVR
- Stable. Currently in AV paced rhythm.
- Device interrogated in the ED and show 0% AF burden since January.
- Continue carvedilol.
- Not on chronic OAC given fall risks as noted above.
Hypertension
- BP elevated in the ED - likely CHF +/- subacute CVA.
- Based on history, about 10 days since onset of CVA symptoms.
- Continue losartan and carvedilol.
- Adjust meds for goal of normotension.
CKD IV
- Stable. Renal function is at / near known baseline.
- Follow for changes with diuresis.
Hypothyroidism
- Continue T4 supplementation.
COPD without Acute Exacerbation
- No wheezing appreciated on exam.
- Continue usual inhaler regimen.
DVT Prophylaxis: SCDs
Code Status: Full
[2025-05-11 06:06] LABS: Hematocrit 35.6 % (37.0-47.0); Hemoglobin 11.9 g/dL (12.0-16.0); Mean Corp Hgb Conc. 33.4 g/dL (33.0-37.0); Mean Corpuscular Volume 89.2 fL (81.0-99.0); Platelet Count 117 10^3/uL (130-400); Red Cell Dist. Width 14.2 % (11.5-14.5)
[2025-05-11] MEDS: SYNTHROID 100 MCG PO (06:33)
[2025-05-11 06:37] LABS: Blood Urea Nitrogen 38 mg/dl (7-17); Calcium 9.4 mg/dl (8.4-10.2); Carbon Dioxide 26 mmol/L (22-30); Chloride 105 mmol/L (98-107); Estimated Creatinine Clearance 17 ml/min; Glucose 108 mg/dl (70-99); HDL Cholesterol 63 mg/dl; LDL Cholesterol, Calculated 87 mg/dl; Potassium 4.5 mmol/L (3.5-5.1); Sodium 137 mmol/L (135-145); Very Low Density Lipoprotein 16 mg/dl (0-30); eGFR 27.61
--- NOTE | 2025-05-11 07:31 | CON.NEURO ---
Consultation
Order
Date of Consultation: 05/11/25
Requesting Provider: Jonatan Cobos DO
Reason for Consult: Stroke
Neurology Consultation Note.
HPI: This is an 84-year-old woman who presented to [facility] on 05/10/2025 with recurrent left-sided hemisensory symptoms.
The symptoms began nearly a week ago, occurring 3-4 times daily. The patient reports that yesterday and early this morning, her hands felt like they were sticking together, and she couldn't separate her fingers and toes on the left side. The
episodes involve numbness, with the patient unable to feel or open her affected hand or toes during these episodes. The numbness lasts at least a couple of minutes. The patient experienced significant hand pain this morning. The toe and hand
symptoms occur separately, a few minutes apart.
Ms. Calhoun states that she has not been taking aspirin because 'of all my medications '
The patient mentions an unwitnesed fall with head trauma onto ceramic tile slightly over a week ago, which resulted in a headache lasting for days. This fall preceded the onset of the current symptoms.
ER VS: 151/86-182/92, 85, afebrile.
Labs: Creatinine�1.7, glucose�105, LDL�87.
CT head wo contrast�right parietal occipital hypodensity, diffuse atrophy.
CTA head/neck(07/01/2019) 2 mm A-COm aneurysm.
PMH: PA A-Fib on ASA, ASCVD, CHF, PAD, COPD, SSS, CM, DLD, HTN, CKD, hypothyroidism, GERD, alcohol use DO, MDD, EMMANUEL, ambulatory dysfunction
PSH: TAVR, PPM
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
FH: Not contributory to current presentation
All: Codeine, losartan, valsartan, sacubitril
ROS: HEENT: Positive for headache.
Musculoskeletal: Positive for fall, chronic right arm limited range of motion
Neurological: Positive for numbness and pain in left hand and toes, difficulty fingers and toes on left side.
General: Well developed. In no acute distress.
Cardio: Regular rate and rhythm without murmur. Extremities are without cyanosis or edema.
Neuro:
Mental Status: Alert, oriented to person, place, and date. Normal attention and recall. Good fund of knowledge. Follows complex requests across the midline. Comprehension, naming, and repetition intact.
Cranial Nerves: Pupils are equally round and reactive to light. EOMs full. Visual vences full to confrontation. No ptosis. No nystagmus. V1-V3 intact to light touch and pinprick bilaterally, symmetric. Face symmetric. Impaired hearing AU.
The palate elevated well. SCMs and traps 5/5. Tongue midline. Mild spastic dysphonia
Motor: Normal bulk and tone. No pronator or arm drift. Strength 5/5 throughout, except for right deltoid, biceps weakness, limited range of motion in the right shoulder (chronic) no clonus.
Reflexes: Trace throughout
Sensory: Absent vibration at the toes ankles and knees
Coordination: No dysmetria or tremor.
Gait: deferred
Assessment and Plan:
I. Probable right MCA territory stroke.
II. PA A-Fib
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
IV. History of A-Com aneurysm.
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
- Continue Telemetry monitoring
- ASA 81 mg QD indefinitely
- Brain MRI without emmanuel
- Routine EEG
- Carotid artery ultrasound
- PT.
- DVT prophylaxis.
I personally reviewed all radiology and labs along with past medical records pertinent to current medical problems. Total time spent in patient care is 60 minutes.
Thank you for allowing us to participate in the care of this patient. We will continue to follow. Please do not hesitate to contact us with any questions or concerns.
Subjective/Objective
Subjective Data
Date of Service: May 11, 2025
Objective Data
Vital Signs
Temp Pulse Resp BP Pulse Ox
36.7 C 85 16 182/92 94
05/11/25 05:04 05/11/25 05:04 05/11/25 05:04 05/11/25 05:04 05/11/25 05:04
Lab Results
05/11/25 05:40
05/11/25 05:40
Sodium 137 mmol/L (135-145) 05/11/25 05:40
Potassium 4.5 mmol/L (3.5-5.1) 05/11/25 05:40
BUN 38 mg/dl (7-17) H 05/11/25 05:40
Glucose 108 mg/dl (70-99) H 05/11/25 05:40
Calcium 9.4 mg/dl (8.4-10.2) 05/11/25 05:40
Hxx-J-Tufccbjypdd Pept 6130 pg/ml 05/10/25 22:50
LDL Cholesterol, Calc 87 mg/dl 05/11/25 05:40
Patient Allergies
codeine Allergy (Verified 02/05/25 17:51)
dizzy
losartan Allergy (Verified 02/05/25 17:51)
Anaphylaxis
sacubitril (From Entresto) Allergy (Verified 02/05/25 17:51)
Anaphylaxis
valsartan (From Entresto) Allergy (Verified 02/05/25 17:51)
Anaphylaxis
Medications
-
Active Medications
Generic Name Dose Route Start Last Admin
Trade Name Freq PRN Reason Stop Dose Admin
Acetaminophen 650 mg 05/11/25 04:52
Acetaminophen 325 Mg Tablet PO 06/08/25 04:51
Q4HPRN PRN
Mild Pain / Temp > 101
Amiodarone HCl 200 mg 05/11/25 08:00
Amiodarone 200 Mg Tablet PO 06/08/25 07:59
DAILY BENJI
Aspirin 81 mg 05/11/25 08:00
Aspirin 81 Mg Chewable Tablet PO 06/08/25 07:59
DAILY BENJI
Budesonide/Formoterol Fumarate 1 puff 05/11/25 08:00
Symbicort Inhaler 80/4.5 INH 06/08/25 07:59
R Q12 BENJI
Protocol
Carvedilol 12.5 mg 05/11/25 08:00
Carvedilol 12.5 Mg Tablet PO 06/08/25 07:59
BID BENJI
Citalopram Hydrobromide 20 mg 05/11/25 08:00
Citalopram 20 Mg Tablet PO 06/08/25 07:59
DAILY BENJI
Dapagliflozin 10 mg 05/11/25 08:00
Dapagliflozin (Farxiga) 10 Mg Tablet PO 06/08/25 07:59
DAILY BENJI
Ferrous Sulfate 325 mg 05/11/25 08:00
Ferrous Sulfate 325 Mg Tablet PO 06/08/25 07:59
DAILY BENJI
Furosemide 40 mg 05/11/25 08:00
Furosemide 40 Mg (10 Mg/Ml) 4 Ml Vial IV 06/08/25 07:59
DAILY BENJI
Levothyroxine Sodium 100 mcg 05/11/25 06:00 05/11/25 06:33
Levothyroxine 100 Mcg Tablet PO 06/08/25 05:59 100 mcg
DAILY@0600 BENJI Administration
Losartan Potassium 12.5 mg 05/11/25 08:00
Losartan 25 Mg Tablet PO 06/08/25 07:59
DAILY BENJI
Pantoprazole Sodium 40 mg 05/11/25 08:00
Pantoprazole 40 Mg Delayed Release Tablet PO 06/08/25 07:59
DAILY BENJI
Rosuvastatin Calcium 20 mg 05/11/25 18:00
Rosuvastatin (Crestor) 20 Mg Tablet PO 06/08/25 17:59
QPM BENJI
Home Medications
�Medication �Instructions �Recorded
albuterol sulfate 90 mcg/actuation 2 puff inhalation R Q6HPRN PRN SOB 07/31/22
aerosol inhaler
amiodarone 200 mg tablet (Pacerone) 200 mg PO DAILY Heart 05/28/23
Disease/Condition
carvedilol 12.5 mg tablet 12.5 mg PO BID Heart 05/28/23
Disease/Condition
citalopram 20 mg tablet 20 mg PO DAILY Depression 05/28/23
ferrous sulfate 325 mg (65 mg 325 mg PO DAILY Supplement 08/19/23
iron) tablet
levothyroxine 100 mcg tablet 100 mcg PO DAILY Thyroid 08/19/23
omeprazole 20 mg capsule,delayed 20 mg PO DAILY GERD 08/19/23
release
empagliflozin 10 mg tablet 10 mg PO DAILY heart failure 10/06/23
(Jardiance)
losartan 25 mg tablet 12.5 mg PO DAILY Blood Pressure 11/03/23
melatonin 3 mg tablet 6 mg PO HS Sleep 11/03/23
rosuvastatin 20 mg tablet 20 mg PO QPM High Cholesterol 11/03/23
acetaminophen 500 mg tablet (Pain 1,000 mg PO Q6HPRN PRN mild pain / 02/05/25
Relief Extra Strength fever
(acetaminophen))
budesonide-formoterol HFA 80 1 puff inhalation Q12H 02/05/25
mcg-4.5 mcg/actuation aerosol
inhaler (Symbicort)
furosemide 40 mg tablet 40 mg PO DAILY HF 30 days #30 tabs 02/08/25
Vital Signs and Labs
-
Vital Signs and Labs:
Vital Signs
Temp Pulse Resp BP Pulse Ox
36.7 C 85 16 182/92 94
05/11/25 05:04 05/11/25 05:04 05/11/25 05:04 05/11/25 05:04 05/11/25 05:04
Lab Results
05/11/25 05:40
05/11/25 05:40
Sodium 137 mmol/L (135-145) 05/11/25 05:40
Potassium 4.5 mmol/L (3.5-5.1) 05/11/25 05:40
BUN 38 mg/dl (7-17) H 05/11/25 05:40
Glucose 108 mg/dl (70-99) H 05/11/25 05:40
Calcium 9.4 mg/dl (8.4-10.2) 05/11/25 05:40
Qlg-Y-Gyzetcaykru Pept 6130 pg/ml 05/10/25 22:50
LDL Cholesterol, Calc 87 mg/dl 05/11/25 05:40
Medications
-
Medications:
Generic Name Dose Route Start Last Admin
Trade Name Freq PRN Reason Stop Dose Admin
Acetaminophen 650 mg 05/11/25 04:52
Acetaminophen 325 Mg Tablet PO 06/08/25 04:51
Q4HPRN PRN
Mild Pain / Temp > 101
Amiodarone HCl 200 mg 05/11/25 08:00
Amiodarone 200 Mg Tablet PO 06/08/25 07:59
DAILY BENJI
Aspirin 81 mg 05/11/25 08:00
Aspirin 81 Mg Chewable Tablet PO 06/08/25 07:59
DAILY BENJI
Budesonide/Formoterol Fumarate 1 puff 05/11/25 08:00
Symbicort Inhaler 80/4.5 INH 06/08/25 07:59
R Q12 BENJI
Protocol
Carvedilol 12.5 mg 05/11/25 08:00
Carvedilol 12.5 Mg Tablet PO 06/08/25 07:59
BID BENJI
Citalopram Hydrobromide 20 mg 05/11/25 08:00
Citalopram 20 Mg Tablet PO 06/08/25 07:59
DAILY BENJI
Dapagliflozin 10 mg 05/11/25 08:00
Dapagliflozin (Farxiga) 10 Mg Tablet PO 06/08/25 07:59
DAILY BENJI
Ferrous Sulfate 325 mg 05/11/25 08:00
Ferrous Sulfate 325 Mg Tablet PO 06/08/25 07:59
DAILY BENJI
Furosemide 40 mg 05/11/25 08:00
Furosemide 40 Mg (10 Mg/Ml) 4 Ml Vial IV 06/08/25 07:59
DAILY BENJI
Levothyroxine Sodium 100 mcg 05/11/25 06:00 05/11/25 06:33
Levothyroxine 100 Mcg Tablet PO 06/08/25 05:59 100 mcg
DAILY@0600 BENJI Administration
Losartan Potassium 12.5 mg 05/11/25 08:00
Losartan 25 Mg Tablet PO 06/08/25 07:59
DAILY BENJI
Pantoprazole Sodium 40 mg 05/11/25 08:00
Pantoprazole 40 Mg Delayed Release Tablet PO 06/08/25 07:59
DAILY EBNJI
Rosuvastatin Calcium 20 mg 05/11/25 18:00
Rosuvastatin (Crestor) 20 Mg Tablet PO 06/08/25 17:59
QPM BENJI
Home Medications
-
Home Medications
albuterol sulfate 90 mcg/actuation aerosol inhaler 2 puff inhalation R Q6HPRN PRN SOB 07/31/22
amiodarone 200 mg tablet (Pacerone) 200 mg PO DAILY Heart Disease/Condition 05/28/23
carvedilol 12.5 mg tablet 12.5 mg PO BID Heart Disease/Condition 05/28/23
citalopram 20 mg tablet 20 mg PO DAILY Depression 05/28/23
ferrous sulfate 325 mg (65 mg iron) tablet 325 mg PO DAILY Supplement 08/19/23
levothyroxine 100 mcg tablet 100 mcg PO DAILY Thyroid 08/19/23
omeprazole 20 mg capsule,delayed release 20 mg PO DAILY GERD 11/18/23
empagliflozin 10 mg tablet (Jardiance) 10 mg PO DAILY heart failure 10/06/23
losartan 25 mg tablet 12.5 mg PO DAILY Blood Pressure 11/03/23
melatonin 3 mg tablet 6 mg PO HS Sleep 11/03/23
rosuvastatin 20 mg tablet 20 mg PO QPM High Cholesterol 11/03/23
acetaminophen 500 mg tablet (Pain Relief Extra Strength (acetaminophen)) 1,000 mg PO Q6HPRN PRN mild pain / fever 02/05/25
budesonide-formoterol HFA 80 mcg-4.5 mcg/actuation aerosol inhaler (Symbicort) 1 puff inhalation Q12H 02/05/25
furosemide 40 mg tablet 40 mg PO DAILY HF 30 days #30 tabs 02/08/25
[2025-05-11] MEDS: LASIX 40 MG IV (07:38)
[2025-05-11] MEDS: COREG 12.5 MG PO ×2 (07:39→21:20)
[2025-05-11] MEDS: PROTONIX 40 MG PO (07:39)
[2025-05-11] MEDS: COZAAR 12.5 MG PO (07:39)
[2025-05-11] MEDS: FEOSOL 325 MG PO (07:39)
[2025-05-11] MEDS: FARXIGA 10 MG PO (07:39)
[2025-05-11] MEDS: CELEXA 20 MG PO (07:39)
[2025-05-11] MEDS: PACERONE 200 MG PO (07:39)
[2025-05-11] MEDS: SYMBICORT 80/4.5 MCG INHALER 1 PUFF INH ×2 (09:03→19:56)
[2025-05-11 09:56] LABS: Glycohemoglobin (HgbA1c) 5.2 % (4.0-5.6)
--- NOTE | 2025-05-11 10:30 | CM ---
CM reviewed chart. Met with pt at bedside. Explained role and discussed anticipated dc plan/options.
Pt from home alone, 2story home w/full BB on 2nd fl however is able to have a 1st fl set up if needed.
1step to enter the home. Family will transport at dc.
Pt expressed interested in HC for SN/PT/OT at dc.
Provided choice and pt is agreeable [facility] @ [place] w/[facility] (referral will need to be made prior to dc).
IMM signed at time of admit on 05/10, IA completed by this CM today 05/11.
CM/SW will continue to follow to ensure a safe and timely dc.
--- NOTE | 2025-05-11 11:49 | W.PN.HOSP.TC ---
Today's Communication/Plan
-
await neuro recommendations.
Assessment / Plan
Assessment / Plan
84y woman with PMH significant for ASCVD, CHF and CKD who presents to ED complaining of cough, SOB and left sided numbness.
1. 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
Patient reports increased dyspnea, cough and chest tightness - consistent with prior episodes of CHF.
BNP and BP elevated in the ED. Pos rales on exam.
IV Lasix daily for now.
Follow I/Os, daily weights, etc.
Echo done in January showed recovered EF now at 52%.
Follow for clinical improvement.
2. Subacute CVA
with known ASCVD and History of Cardioembolic CVA
Patient with intermittent L sided numbness and appreciable weakness on exam.
CT in the ED shows R parieto-occipital CVA.
Not on OAC given fall risk (and did have fall with head injury recently).
ASA 81mg daily for now.
MRI pending
PT / OT evaluations.
Neuro evaluation for additional recommendations.
3. Paroxysmal Atrial Fibrillation with Non-Sustained VT
SSS s/p PPM & Aortic Stenosis s/p TAVR
Stable. Currently in AV paced rhythm.
Device interrogated in the ED and show 0% AF burden since January.
Continue carvedilol.
Not on chronic OAC given fall risks as noted above.
4. Essential Hypertension
BP elevated in the ED - likely CHF +/- subacute CVA.
Based on history, about 10 days since onset of CVA symptoms.
Continue losartan and carvedilol.
Adjust meds for goal of normotension.
5. CKD IV
Stable. Renal function is at / near known baseline.
Follow for changes with diuresis.
6. Hypothyroidism
Continue T4 supplementation.
7. COPD without Acute Exacerbation
No wheezing appreciated on exam.
Continue usual inhaler regimen.
DVT Prophylaxis: SCDs
Code Status: Full
Anticipated Discharge: 24 - 48 hours
Subjective/Interval History
-
Date of Service: May 11, 2025
Was able to sleep this am.
Objective Data
-
Labs:
Laboratory Results
05/11/25
05:40
WBC 4.7 L
Hgb 11.9 L
Hct 35.6 L
Plt Count 117 L
Sodium 137
Potassium 4.5
Chloride 105
Carbon Dioxide 26
BUN 38 H
Creatinine 1.8 H
Glucose 108 H
Calcium 9.4
Vital Signs:
Vital Signs
Temp Pulse Resp BP Pulse Ox
97.8 F 72 16 113/68 97
05/11/25 11:40 05/11/25 11:40 05/11/25 11:40 05/11/25 11:40 05/11/25 11:40
Review of Systems
-
History Source: Patient
All other systems: Reviewed and negative
Physical Exam
-
General: Well Developed, Well Nourished and No Apparent Distress
HEENT: Normocephalic, Nose Appears Normal and Ears Appear Normal
Respiratory: Decreased Breath Sounds
Cardiac: Regular Rhythm and S1/S2
GI: Soft, Nontender and Nondistended
Musculoskeletal: No Clubbing and No Cyanosis
Skin: Warm and Dry
Neuro: Awake, Alert and Oriented
Psych: Calm
[2025-05-11 14:31] LABS: Folate 4.4 ng/ml (2.76-20); Vitamin B12 371 pg/ml (239-931)
[2025-05-11] MEDS: CRESTOR 20 MG PO (16:05)
[2025-05-11] MEDS: TYLENOL 650 MG PO (21:20)
[2025-05-12] VITALS (7 sets, daily range): BP systolic 85–174; BP diastolic 57–92; PULSE 79; BMI 22.4
[2025-05-12] MEDS: SYNTHROID 100 MCG PO (06:38)
[2025-05-12] MEDS: COREG 12.5 MG PO ×2 (07:21→19:51)
[2025-05-12] MEDS: LASIX 40 MG IV (07:22)
[2025-05-12] MEDS: LOW STRENGTH ASPIRIN 81 MG PO (07:22)
[2025-05-12] MEDS: COZAAR 12.5 MG PO (07:22)
[2025-05-12] MEDS: CELEXA 20 MG PO (07:23)
[2025-05-12] MEDS: FARXIGA 10 MG PO (07:23)
[2025-05-12] MEDS: PROTONIX 40 MG PO (07:23)
[2025-05-12] MEDS: FEOSOL 325 MG PO (07:23)
[2025-05-12] MEDS: PACERONE 200 MG PO (07:23)
[2025-05-12] MEDS: SYMBICORT 80/4.5 MCG INHALER INH (08:10)
--- NOTE | 2025-05-12 08:34 | CARDSERVLU ---
Echocardiogram with Lumason completed after protocol screening completed. Allergies verified.
Patent IV site: _rt FA___
IV site flushed with 0.9% NaCl pre and post administration.
Diluted bolus method utilized to enhance visualization of ventricular farrell.
Total volume given: __2.0__ mL
Patient tolerated all procedures well without complications.
[2025-05-12 08:39] LABS: Hematocrit 37.9 % (37.0-47.0); Hemoglobin 12.5 g/dL (12.0-16.0); Mean Corp Hgb Conc. 33.0 g/dL (33.0-37.0); Mean Corpuscular Volume 89.4 fL (81.0-99.0); Platelet Count 124 10^3/uL (130-400); Red Cell Dist. Width 14.1 % (11.5-14.5)
[2025-05-12 09:08] LABS: Blood Urea Nitrogen 34 mg/dl (7-17); Calcium 9.0 mg/dl (8.4-10.2); Carbon Dioxide 25 mmol/L (22-30); Chloride 107 mmol/L (98-107); Estimated Creatinine Clearance 20 ml/min; Glucose 111 mg/dl (70-99); Potassium 4.1 mmol/L (3.5-5.1); Sodium 139 mmol/L (135-145); eGFR 34.36
--- NOTE | 2025-05-12 10:49 | W.PN.NEURO.1 ---
Today's Communication / Plan
-
check CTA (? change in known 2 mm right MATTHEW aneurysm
Continue antiplatelet therapy unless there is evidence of an acute ischemic stroke at which time patient should have initiation of anticoagulant. The use of an anticoagulant should not be decided on the basis of fall risk
Check MRI of brain as planned
Continue rosuvastatin
Neuro Assessment/Plan
Assessment
I. Probable right MCA territory stroke.
II. PA A-Fib
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
IV. History of A-Com aneurysm.
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
Plan
check CTA (? change in known 2 mm right MATTHEW aneurysm
Continue antiplatelet therapy unless there is evidence of an acute ischemic stroke at which time patient should have initiation of anticoagulant. The use of an anticoagulant should not be decided on the basis of fall risk
Check MRI of brain as planned
Continue rosuvastatin
Will follow pending results
Subjective/Objective
Subjective Data
Date of Service: May 12, 2025
No change. Had an episode of falling backwards
Objective Data
Vital Signs
Temp Pulse Resp BP Pulse Ox
36.3 C 63 16 137/87 97
05/12/25 07:08 05/12/25 07:08 05/12/25 07:08 05/12/25 07:08 05/12/25 08:00
Lab Results
05/12/25 07:27
05/12/25 07:27
Sodium 139 mmol/L (135-145) 05/12/25 07:27
Potassium 4.1 mmol/L (3.5-5.1) 05/12/25 07:27
BUN 34 mg/dl (7-17) H 05/12/25 07:27
Glucose 111 mg/dl (70-99) H 05/12/25 07:27
Calcium 9.0 mg/dl (8.4-10.2) 05/12/25 07:27
Pbe-W-Matjibixtfk Pept 6130 pg/ml 05/10/25 22:50
LDL Cholesterol, Calc 87 mg/dl 05/11/25 05:40
Vitamin B12 371 pg/ml (220-134) 05/11/25 12:55
Patient Allergies
codeine Allergy (Verified 02/05/25 17:51)
dizzy
losartan Allergy (Verified 02/05/25 17:51)
Anaphylaxis
sacubitril (From Entresto) Allergy (Verified 02/05/25 17:51)
Anaphylaxis
valsartan (From Entresto) Allergy (Verified 02/05/25 17:51)
Anaphylaxis
Review of Systems
-
History Source: Patient
All other systems: Reviewed and negative
Constitutional: Fatigue
Respiratory: Trouble Breathing
Cardiac: Negative Chest Pain
Musculoskeletal: Back Pain (low back started weeks ago) and Neck Pain (right anterior)
Neuro: Headache (left side of back of head); Negative Dizzy
Physical Exam
-
General: No Apparent Distress and Appears Stated Age
Eyes: Round OU, [place] Conjunctivae and No Ptosis
HEENT: Anicteric and Moist Mucous Membranes
Neck: Full Range of Motion
Respiratory: No Dyspnea
Cardiac: No JVD
GI: Non-distended
Skin: Unremarkable
Extremities: No Clubbing, No Cyanosis and No Edema
Psych: Intact Judgement/Insight
Extended Neurological Exam
Mood & Affect: Mood Unremarkable and Affect Unremarkable
Attention Span & Concentration: Awake, Alert and Interactive
Memory: Unremarkable
Tremor: Hand Tremor Absent and Head Tremor Absent
Speech: Quality Unremarkable and Quantity Unremarkable
Cranial Nerve II: Left Eye: Pupillary Size Unremarkable and Visual Emerson Grossly Intact
Cranial Nerve II: Right Eye: Pupillary Size Unremarkable and Visual Emerson Grossly Intact
Cranial Nerves III, IV, : Extraocular Movement: Grossly Intact
Cranial Nerve VII: Facial Symmetry: Normal Facial Symmetry
Cranial Nerve VIII: Hearing: Negative Unremarkable Hearing to Normal Conversational Volume
Muscle Strength, Overall: Spontaneously Moves (All extremities)
Muscle Bulk & Tone: Bulk Unremarkable and Tone Unremarkable
Coordination: Reaches for Objects without Difficulty
Data Reviewed
-
CT Head: Report Reviewed
MRI Head: Pending
Labs: Report Reviewed
Reviewed with: Physician, Nurse Practioner and Patient
Old Records: Summarized
--- NOTE | 2025-05-12 12:03 | CM ---
CM reviewed chart, patient seen bedside. Patient agreeable to referral to [facility] by [facility]- referral placed in [facility]. CM will continue to follow for all discharge planning needs.
Plan; ref to [facility]
--- NOTE | 2025-05-12 12:25 | W.PN.HOSP.TC ---
Today's Communication/Plan
-
Assessment / Plan
Assessment / Plan
General: No Apparent Distress, Comfortable and Conversant
HEENT: NormoCephalic, Moist mucous membranes, Atraumatic
Respiratory: No wheezing or rhonchi, patient appears dyspneic when speaking
Cardiac: S1/S2 and Regular Rhythm; No Rub or Gallop
GI: Soft, Non Tender, Non Distended and Normal Bowel Sounds
Musculoskeletal: No Edema, no deformity
Skin: Warm and dry
: NO Allen
Neuro: Awake, Alert, mild left upper and lower extremity weakness
Psych: Calm and Intact Judgment/Insight
Ms. Calhoun is an 84-year-old female with a medical history of HFrEF, paroxysmal A-fib, cardioembolic CVA, COPD, CKD stage III, aortic stenosis (status post TAVR), and hypothyroidism who presented with shortness of breath and left-sided weakness
and numbness.
1. 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
Patient reports increased dyspnea, cough and chest tightness - consistent with prior episodes of CHF.
BNP and BP elevated in the ED. Pos rales on exam.
IV Lasix daily for now.
Follow I/Os, daily weights, etc.
Echo done in January showed recovered EF now at 52%.
Follow for clinical improvement.
2. Subacute CVA
with known ASCVD and History of Cardioembolic CVA
Patient with intermittent L sided numbness and appreciable weakness on exam.
CT in the ED shows R parieto-occipital CVA.
Not on OAC given fall risk (and did have fall with head injury recently).
ASA 81mg daily for now.
EEG results and MRI pending
PT / OT evaluations.
Neuro evaluation for additional recommendations.
3. Paroxysmal Atrial Fibrillation with Non-Sustained VT
SSS s/p PPM & Aortic Stenosis s/p TAVR
Stable. Currently in AV paced rhythm.
Device interrogated in the ED and show 0% AF burden since January.
Continue carvedilol.
Not on chronic OAC given fall risks as noted above.
4. Essential Hypertension
BP elevated in the ED - likely CHF +/- subacute CVA.
Based on history, about 10 days since onset of CVA symptoms.
Continue losartan and carvedilol.
Adjust meds for goal of normotension.
5. CKD III
Stable. Renal function is at / near known baseline.
Follow for changes with diuresis.
6. Hypothyroidism
Continue T4 supplementation.
7. COPD without Acute Exacerbation
No wheezing appreciated on exam.
Continue usual inhaler regimen.
DVT Prophylaxis: SCDs
Code Status: Full
Anticipated Discharge: 24 - 48 hours
Subjective/Interval History
-
Date of Service: May 12, 2025
Patient was seen and examined at bedside this morning. Still having some left-sided weakness. EEG obtained this morning, results pending. Waiting for MRI.
Objective Data
-
Labs:
Laboratory Results
05/12/25
07:27
WBC 4.1 L
Hgb 12.5
Hct 37.9
Plt Count 124 L
Sodium 139
Potassium 4.1
Chloride 107
Carbon Dioxide 25
BUN 34 H
Creatinine 1.5 H
Glucose 111 H
Calcium 9.0
Vital Signs:
Vital Signs
Temp Pulse Resp BP Pulse Ox
97.6 F 66 18 120/59 99
05/12/25 11:04 05/12/25 11:04 05/12/25 11:04 05/12/25 11:04 05/12/25 11:04
Review of Systems
-
History Source: Patient
All other systems: Reviewed and negative
Neuro: Reports Weakness (Left upper and lower extremity weakness)
Physical Exam
-
General: No Apparent Distress
--- NOTE | 2025-05-12 12:44 | EEG.RPT ---
Electroencephalogram Report
Recording
Date of EE05/12/25
Type of EEG: Routine
Length of EEG recordin minutes
Done with Video Recording: Yes
Patient Status: Inpatient
Recording Conditions: Awake and Drowsy
Hyperventilation Performed: No
Photic Stimulation Performed: Yes
Report
LESS THAN 1 HOUR EEG REPORT
LESS THAN 1 HOUR EEG INTERPRETATION:
Mildly abnormal study for age based on low amplitude even for age, generalized slowing demonstrated bihemispherically equally
CLINICAL CORRELATION:
Although normative values not been established for a person of this advanced age the patient�s symmetry of the background suggests that this study was suggestive of mild bihemispheric cortical dysfunction. No epileptiform features were demonstrated.
If concerns remain regarding epilepsy, prolonged monitoring may be of assistance.
Clinical correlation is advised.
METHODS:
A 21-channel digital electroencephalogram (EEG) was performed. The 10/20 international system of electrode placement was used with ECG and lateral/vertical eye movements recorded. The [employer] quantitative EEG analysis system was performed
IMPRESSION(S):
Quality of study
Fair
Background
Low amplitude
Anterior-posterior voltage gradient differentiation: Fair�good
Theta frequency maximal background demonstrated
Sleep
Drowsiness present
Hyperventilation
Not performed
Photic Stimulation
Failed to activate the record
ECG
Normal rhythm
Abnormal Activity
None
[2025-05-12] MEDS: CRESTOR 20 MG PO (17:06)
[2025-05-12] MEDS: SYMBICORT 80/4.5 MCG INHALER 1 PUFF INH (19:33)
[2025-05-12] MEDS: MUCINEX 600 MG PO (19:51)
[2025-05-13 00:17] VITALS: BP 103/62
[2025-05-13] MEDS: TYLENOL 650 MG PO ×2 (00:21→05:03)
[2025-05-13 03:15] VITALS: BP 126/59
[2025-05-13] MEDS: REFRESH EYE DROPS (PF) 1 DROPS OPHTH (03:21)
[2025-05-13] MEDS: BENADRYL ELIXIR 12.5 MG PO (05:03)
[2025-05-13] MEDS: SYNTHROID 100 MCG PO (05:03)
[2025-05-13 05:48] VITALS: BMI 22.5
[2025-05-13] MEDS: SYMBICORT 80/4.5 MCG INHALER 1 PUFF INH (07:44)
--- NOTE | 2025-05-13 07:59 | W.PN.NEURO.1 ---
Today's Communication / Plan
-
check CTA (? change in known 2 mm right MATTHEW aneurysm)
Continue antiplatelet therapy unless there is evidence of an acute ischemic stroke at which time patient should have initiation of anticoagulant. The use of an anticoagulant should not be decided on the basis of fall risk
Check MRI of brain as planned
Increase rosuvastatin from 20 mg to dosing of 40 mg due to LDL greater than 70
Neuro Assessment/Plan
Assessment
I. Probable right MCA territory stroke.
II. PA A-Fib
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
IV. History of A-Com aneurysm.
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
Plan
check CTA (? change in known 2 mm right MATTHEW aneurysm)
Continue antiplatelet therapy unless there is evidence of an acute ischemic stroke at which time patient should have initiation of anticoagulant. The use of an anticoagulant should not be decided on the basis of fall risk
Check MRI of brain as planned
Increase rosuvastatin from 20 mg to dosing of 40 mg due to LDL greater than 70
Will follow pending results
Subjective/Objective
Subjective Data
Date of Service: May 13, 2025
Objective Data
Vital Signs
Temp Pulse Resp BP Pulse Ox
36.7 C 67 16 126/59 96
05/13/25 03:15 05/13/25 07:53 05/13/25 07:53 05/13/25 03:15 05/13/25 07:53
Lab Results
05/12/25 07:27
05/12/25 07:27
Sodium 139 mmol/L (135-145) 05/12/25 07:27
Potassium 4.1 mmol/L (3.5-5.1) 05/12/25 07:27
BUN 34 mg/dl (7-17) H 05/12/25 07:27
Glucose 111 mg/dl (70-99) H 05/12/25 07:27
Calcium 9.0 mg/dl (8.4-10.2) 05/12/25 07:27
Rqh-O-Pjdcxjdpzxp Pept 6130 pg/ml 05/10/25 22:50
LDL Cholesterol, Calc 87 mg/dl 05/11/25 05:40
Vitamin B12 371 pg/ml (268-371) 05/11/25 12:55
Patient Allergies
codeine Allergy (Verified 02/05/25 17:51)
dizzy
losartan Allergy (Verified 02/05/25 17:51)
Anaphylaxis
sacubitril (From Entresto) Allergy (Verified 02/05/25 17:51)
Anaphylaxis
valsartan (From Entresto) Allergy (Verified 02/05/25 17:51)
Anaphylaxis
Data Reviewed
-
CT-A: Report Reviewed
Labs: Report Reviewed
Reviewed with: Physician and Nurse Practioner
Old Records: Summarized
[2025-05-13 08:20] VITALS: BP 126/78
[2025-05-13] MEDS: COREG 12.5 MG PO (08:30)
[2025-05-13] MEDS: PROTONIX 40 MG PO (08:30)
[2025-05-13] MEDS: FEOSOL 325 MG PO (08:30)
[2025-05-13] MEDS: FARXIGA 10 MG PO (08:30)
[2025-05-13] MEDS: MUCINEX 600 MG PO (08:30)
[2025-05-13] MEDS: PACERONE 200 MG PO (08:31)
[2025-05-13] MEDS: COZAAR 12.5 MG PO (08:31)
[2025-05-13] MEDS: LOW STRENGTH ASPIRIN 81 MG PO (08:31)
[2025-05-13] MEDS: CELEXA 20 MG PO (08:32)
[2025-05-13] MEDS: LASIX 40 MG IV (09:13)
[2025-05-13 11:00] VITALS: BP 154/77
--- NOTE | 2025-05-13 11:39 | CM ---
CM reviewed chart, patient seen bedside, for discharge today. IMM verbally reviewed, provided with copy, placed in chart. Patient confirms daughter will provide transportation home. Call to patients daughter, Swathi, discussed plan for discharge,
Swathi requesting VN visits be arranged through her as patient typically does not answer phone- Swathi's name/number updated on [facility] referral. CM will continue to follow for all discharge planning needs.
Plan; home with referral to [facility]
--- NOTE | 2025-05-13 13:32 | CON.VAS ---
Consultation
Consultation Request
Date/Time Consultation Performed: 05/13/2025 1 PM
Performing Provider: Tiffany
Reason for Consultation: Carotid stenosis
Medical History
-
Chief Complaint: Left hand and foot spasm
History of Present Illness:
84-year-old female with past medical history significant for ASCVD, CHF, CKD, cerebral aneurysm, AAA, TAVR, A-fib not on anticoagulation, hypertension, hyperlipidemia presented to the emergency room on 05/11/2025 for cough, shortness of breath, and
left-sided numbness. Patient states she has been having intermittent left fingers and toes 'stiffness'. 'Like all the fingers are stuck together and I cannot move them.' She compared it to a spasm. The symptoms occurred off and on over a week and
a half. Denied any other strokelike symptoms.
CT head: Questionable acute/subacute transcortical infarct in the right parieto-occipital region. MRI would be of greater sensitivity.
No MRI study due to patient's pacemaker not being MRI compatible.
CTA head and neck: No evidence of M1 nor M2 occlusion. Greater than 70% distal bilateral common carotid artery stenosis. Stable. New carotid stent on the right. Stable carotid stent on the left. Additional smaller stenoses as described above are
stable.
Vascular consult for carotid stenosis. Patient seen at bedside this afternoon with Dr. Allen. Patient offers no complaints at this time. Patient feels at her baseline neurologically. Patient believes her bilateral carotid stents were placed at
[facility]. She is unsure if anyone is currently following her carotid artery disease. She states that she would like to switch her care to our office due to it being a more convenient location.
Past Medical History
Past Medical History: Arrhythmias (A-fib not on anticoagulation, sick sinus syndrome, nonsustained VT), CAD (Stenting), COPD, GERD, Renal Failure (Chronic kidney disease stage III), Valvular Disease (Aortic stenosis), Psychiatric
(Anxiety/depression) and Other (Cerebral Aneurysm, AAA, Cardioembolic CVA, Hyperlipidemia)
Past Surgical History: Cardiac (TAVR) and Other (Bilateral carotid artery stents, TAVR, permanent pacemaker, tubal ligation, cataracts)
Social History
Tobacco: Non-Smoker
Alcohol: Occasional
Drug: None
Family History
Family History: Reviewed & Not Pertinent
Allergies / Home Medications
Allergy/AdvReac Type Severity Reaction Status Date / Time
codeine Allergy dizzy Verified 02/05/25 17:51
losartan Allergy Anaphylaxis Verified 02/05/25 17:51
sacubitril (From Entresto) Allergy Anaphylaxis Verified 02/05/25 17:51
valsartan (From Entresto) Allergy Anaphylaxis Verified 02/05/25 17:51
�Medication �Instructions �Recorded �Confirmed �Type
albuterol sulfate 90 mcg/actuation 2 puff inhalation R Q6HPRN PRN SOB 07/31/22 05/11/25 History
aerosol inhaler
amiodarone 200 mg tablet (Pacerone) 200 mg PO DAILY Heart 05/28/23 05/11/25 History
Disease/Condition
carvedilol 12.5 mg tablet 12.5 mg PO BID Heart 05/28/23 05/11/25 History
Disease/Condition
citalopram 20 mg tablet 20 mg PO DAILY Depression 05/28/23 05/11/25 History
ferrous sulfate 325 mg (65 mg 325 mg PO DAILY Supplement 08/19/23 05/11/25 History
iron) tablet
levothyroxine 100 mcg tablet 100 mcg PO DAILY Thyroid 08/19/23 05/11/25 History
omeprazole 20 mg capsule,delayed 20 mg PO DAILY GERD 08/19/23 05/11/25 History
release
empagliflozin 10 mg tablet 10 mg PO DAILY heart failure 10/06/23 05/11/25 History
(Jardiance)
losartan 25 mg tablet 12.5 mg PO DAILY Blood Pressure 11/03/23 05/11/25 History
melatonin 3 mg tablet 6 mg PO HS Sleep 11/03/23 05/11/25 History
rosuvastatin 20 mg tablet 20 mg PO QPM High Cholesterol 11/03/23 05/11/25 History
acetaminophen 500 mg tablet (Pain 1,000 mg PO Q6HPRN PRN mild pain / 02/05/25 05/11/25 History
Relief Extra Strength fever
(acetaminophen))
budesonide-formoterol HFA 80 1 puff inhalation Q12H 02/05/25 05/11/25 History
mcg-4.5 mcg/actuation aerosol Lung/Breathing Issues
inhaler (Symbicort)
furosemide 40 mg tablet 40 mg PO DAILY HF 30 days #30 tabs 02/08/25 05/11/25 Rx
Review of Systems
-
History Source: Patient
All other systems: Negative unless noted
Constitutional: Reports No Symptoms
EENT: Reports No Symptoms
Respiratory: Reports Trouble Breathing (Resolved)
Cardiac: Reports No Symptoms
Vascular: Denies Leg Pain / Claudication
Abdomen/GI: Reports No Symptoms
Musculoskeletal: Reports No Symptoms
Skin: Reports No Symptoms
Neurological: Reports Dizzy and Numbness
Physical Exam
Vital Signs
Temp Pulse Resp BP Pulse Ox
98.7 F 72 18 154/77 97
05/13/25 11:00 05/13/25 11:00 05/13/25 11:00 05/13/25 11:00 05/13/25 11:00
Lab Results
05/12/25 07:27
05/12/25 07:27
Troponin I < 0.012 ng/ml 05/10/25 22:50
Cpv-X-Satrbtrmhxt Pept 6130 pg/ml 05/10/25 22:50
Physical Exam
General: No Apparent Distress
HEENT: Normocephalic and Atraumatic
Respiratory: Non Labored Respirations
Cardiac: Negative JVD
GI: Soft and Non Tender
Musculoskeletal: No Clubbing, No Cyanosis and No Edema
Skin: Warm
Neuro: Awake, Alert, Oriented and No Motor Deficits
Psych: Calm
Assessment / Plan
-
84-year-old female with complex medical history here with carotid stenosis, left hand and foot numbness and 'spasms'
History of bilateral carotid stenting
Plan:
Carotid ultrasound pending
Patient wishes to transfer care to our vascular office, I will leave her information in the chart
Data Reviewed
-
CT Scan: Discussed with Patient
Labs: Labs Reviewed by me
--- NOTE | 2025-05-13 14:58 | W.DCSUMMARY ---
Discharge Summary
Discharge Data
Date of Admission: 05/11/25
Date of Discharge: 05/13/25
Total time spent discharging patient (in min): 56
-
Pending Results: Yes
Additional Pending Results:
Results of carotid ultrasound pending, has scheduled outpatient vascular surgery follow-up
Hospital Course
Ms. Calhoun is an 84-year-old female with medical history of HFrEF, paroxysmal A-fib (no longer on anticoagulation), cardioembolic CVA, bilateral carotid artery stenosis (right and left carotid stents), sick sinus syndrome (PPM in place), COPD, CKD
stage IIIb, aortic stenosis (status post TAVR), and hypothyroidism who presented from home with left-sided weakness and numbness. Reportedly her symptoms had been ongoing for several weeks prior to presentation. Based on CT imaging and clinical
exam, she was found to have had an subacute right sided CVA. CT angiography of her head and neck showed significant bilateral carotid stenosis with severe stenosis on the right. She was evaluated by the vascular surgery team who recommended
outpatient follow-up. Ultrasound imaging of her bilateral carotid arteries was ordered by the vascular team to obtain a baseline for continued monitoring. She was unable to get an MRI because her pacemaker was not compatible. She was evaluated by
neurology who recommended antiplatelet therapy and initiation of anticoagulation if this was indeed felt to be a cardioembolic stroke. However according to the patient's daughter, after discussion between patient, family, and outpatient care team
decision was made to discontinue her home Eliquis considering risk versus benefits. She has been treated with full-strength aspirin alone. They would like to continue with that same regimen going forward. Discussed with patient and family that
she will need ongoing outpatient follow-up and medication adjustments as needed. They can further discuss the option of anticoagulation and reinitiate Eliquis in the future if in line with goals of care. At time of hospital discharge she was
medically stable.
Of note, patient's daughter Sendy reports a difference in her home medication regimen. With her current medication reconciliation. Sendy reports patient takes Nebivolol now instead of carvedilol, takes full-strength aspirin, and takes a higher
dose of rosuvastatin than currently noted in medication reconciliation. This was not able to be independently confirmed by our pharmacy staff. The patient should continue her home medication regimen as stated by Sendy without any changes,
including continuing full-strength aspirin.
General: No Apparent Distress, Comfortable and Conversant
HEENT: NormoCephalic, Moist mucous membranes, Atraumatic
Respiratory: No wheezing or rhonchi, equal chest rise
Cardiac: S1/S2 and Regular Rhythm; No Rub or Gallop
GI: Soft, Non Tender, Non Distended and Normal Bowel Sounds
Musculoskeletal: No Edema, no deformity
Skin: Warm and dry
: NO Allen
Neuro: Awake, Alert, mild left upper and lower extremity weakness
Psych: Calm and cooperative
Discharge Plan
-
Patient Disposition: Home with Home Care
Discharge Diagnosis/Procedures: Subacute right-sided CVA
Activity: As tolerated and With Walker
Activity Restrictions/Additional Instructions:
Ms. Calhoun is an 84-year-old female with medical history of HFrEF, paroxysmal A-fib (no longer on anticoagulation), cardioembolic CVA, bilateral carotid artery stenosis (right and left carotid stents), sick sinus syndrome (PPM in place), COPD, CKD
stage IIIb, aortic stenosis (status post TAVR), and hypothyroidism who presented from home with left-sided weakness and numbness. Reportedly her symptoms had been ongoing for several weeks prior to presentation. Based on CT imaging and clinical
exam, she was found to have had an subacute right sided CVA. CT angiography of her head and neck showed significant bilateral carotid stenosis with severe stenosis on the right. She was evaluated by the vascular surgery team who recommended
outpatient follow-up. Ultrasound imaging of her bilateral carotid arteries was ordered by the vascular team to obtain a baseline for continued monitoring. She was unable to get an MRI because her pacemaker was not compatible. She was evaluated by
neurology who recommended antiplatelet therapy and initiation of anticoagulation if this was indeed felt to be a cardioembolic stroke. However according to the patient's daughter, after discussion between patient, family, and outpatient care team
decision was made to discontinue her home Eliquis considering risk versus benefits. She has been treated with full-strength aspirin alone. They would like to continue with that same regimen going forward. Discussed with patient and family that
she will need ongoing outpatient follow-up and medication adjustments as needed. They can further discuss the option of anticoagulation and reinitiate Eliquis in the future if in line with goals of care. At time of hospital discharge she was
medically stable.
Referrals:
Srinivasan Allen III, MD [Active, Vascular Surgery] - 06/25/25 3:45 pm
Referral Note: Vascular surgery office appointment
Lisa Beth DO [Family Provider, Internal Medicine]
Prescriptions:
New
aspirin 325 mg tablet
325 mg PO DAILY 30 Days Qty: 30 0RF
Continued
albuterol sulfate 90 mcg/actuation Hfa Aerosol Inhaler
2 puff INHALATION R Q6HPRN PRN (Reason: SOB)
carvedilol 12.5 mg tablet
12.5 mg PO BID
amiodarone [Pacerone] 200 mg tablet
200 mg PO DAILY
citalopram 20 mg Tablet
20 mg PO DAILY
levothyroxine 100 mcg tablet
100 mcg PO DAILY
ferrous sulfate 325 mg (65 mg iron) tablet
325 mg PO DAILY
omeprazole 20 mg Capsule,Delayed Release(Dr/Ec)
20 mg PO DAILY
Jardiance 10 mg Tablet
10 mg PO DAILY
losartan 25 mg Tablet
12.5 mg PO DAILY
rosuvastatin 20 mg Tablet
20 mg PO QPM
melatonin 3 mg Tablet
6 mg PO HS
budesonide-formoterol [Symbicort] 80-4.5 mcg/actuation Hfa Aerosol Inhaler
1 puff INHALATION Q12H
acetaminophen [Pain Relief ES (acetaminophen)] 500 mg tablet
1,000 mg PO Q6HPRN PRN (Reason: mild pain / fever)
furosemide 40 mg Tablet
40 mg PO DAILY 30 Days Qty: 30 2RF
Discharge Orders:
Discharge Patient (As Directed); Ordered 05/13/25
Ordered By: Tang Viramontes
Discharge Date and Time
Print Language: SOU[place]
[2025-05-13 15:00] VITALS: BP 119/59
[2025-05-14 16:08] LABS: Vitamin B1, Whole Blood 123 nmol/L (70-180)
[2025-05-14 21:17] LABS: Albumin 3.69 g/dL (3.75-5.01); SPEP IFE Reflex IFE Done; Total Protein-Electrophoresis 5.9 g/dL (6.3-8.2)
== END 2025-05-13 16:29 | disposition home health service (06) | DRG 291 ==
LOC: 4 WEST ACU 03:40
PROVIDERS: Internal Medicine; Physician Assistant; ADMITTING PHYSICIAN Hospitalist; ATTENDING PHYSICIAN Internal Medicine; CONSULT PHYSICIAN Psychiatry & Neurology Neurology; EMERGENCY PHYSICIAN Emergency Medicine; FAMILY PHYSICIAN Internal Medicine
DX: I13.0 Hypertensive heart and chronic kidney disease with heart failure and stage 1 through stage 4 chronic kidney disease, or unspecified chronic kidney disease (principal); I50.23 Acute on chronic systolic (congestive) heart failure; I63.411 Cerebral infarction due to embolism of right middle cerebral artery; N18.32 Chronic kidney disease, stage 3b; I65.23 Occlusion and stenosis of bilateral carotid arteries; I49.5 Sick sinus syndrome; Z95.0 Presence of cardiac pacemaker; J44.9 Chronic obstructive pulmonary disease, unspecified; Z95.2 Presence of prosthetic heart valve; E03.9 Hypothyroidism, unspecified; Z79.890 Hormone replacement therapy; Z79.84 Long term (current) use of oral hypoglycemic drugs; Z79.899 Other long term (current) drug therapy; Z79.51 Long term (current) use of inhaled steroids; I48.0 Paroxysmal atrial fibrillation; I25.10 Atherosclerotic heart disease of native coronary artery without angina pectoris; K21.9 Gastro-esophageal reflux disease without esophagitis; F32.9 Major depressive disorder, single episode, unspecified; F41.9 Anxiety disorder, unspecified; Z88.5 Allergy status to narcotic agent; Z88.8 Allergy status to other drugs, medicaments and biological substances; E78.00 Pure hypercholesterolemia, unspecified; Z91.81 History of falling; Z79.82 Long term (current) use of aspirin; G60.8 Other hereditary and idiopathic neuropathies; Z86.73 Personal history of transient ischemic attack (TIA), and cerebral infarction without residual deficits; Z95.5 Presence of coronary angioplasty implant and graft
CPT/HCPCS: 70450; 70496; 70498; 71046; 80048; 80061; 82607; 82746; 82784; 83036; 83880; 84155; 84165; 84425; 84484; 85025; 85027; 86334; 93005; 93308; 93321; 93325; 93880; 94640; 95816; 97162; 97166; 97530; 99285; Q9967